=== PATIENT | female | born 1935 | race Caucasian/White ===

== ENCOUNTER 2022-08-24 07:46 | Outpatient (OUT) | payer MEDICARE, OTHER, SELFPAY ==
[2022-08-24 09:05] LABS: Alanine Aminotransferase 21 U/L (14-59); Albumin Globulin Ratio 0.8; Albumin Level 3.3 g/dL (3.4-5.0); Alkaline Phosphatase 64 U/L (46-116); Anion Gap 12.6; Aspartate Amino Transferase 21 U/L (15-37); BUN Creatinine Ratio 23.4; Bilirubin Total 0.6 mg/dL (0.2-1.0); Calcium 9.3 mg/dL (8.5-10.1); Carbon Dioxide 27.3 mmol/L (21.0-32.0); Chloride 107 mmol/L (98-107); Estimated GFR (African America 59 (>=60); Estimated GFR (Non-African Ame 49 (>=60); Globulin 4.2 g/dL; Glucose 120 mg/dL (74-106); Potassium 3.9 mmol/L (3.5-5.1); Sodium 143 mmol/L (136-145); Total Protein 7.5 g/dL (6.4-8.2)
[2022-08-24 09:53] LABS: Bilirubin Urine NEGATIVE (NEGATIVE); Blood Urine MODERATE (NEGATIVE); Color Urine LT. YELLOW (YELLOW); Glucose Urine UA NEGATIVE (NEGATIVE); Ketones Urine NEGATIVE (NEGATIVE); Leukocyte Esterase Urine LARGE (NEGATIVE); Nitrite Urine NEGATIVE (NEGATIVE); Protein Urine TRACE mg/dL (NEG/TRACE); Specific Gravity Urine 1.025 (1.005-1.025); Urobilinogen Urine 0.2 EU/dL (0.2-1.0); pH Urine 5.5 (5.0-9.0)
[2022-08-24 09:54] LABS: Clarity Urine SLIGHTLY CLOUDY (CLEAR)
[2022-08-24 09:58] LABS: Bacteria Urine SMALL #/HPF (NONE SEEN); Cast Seen? NONE SEEN #/LPF (NONE SEEN); Crystals Seen? None Seen #/HPF (None Seen); Mucus Urine NONE SEEN (NONE SEEN); Squamous Epithelial Cell Urine RARE #/LPF (NONE/RARE); Urine Culture Indicated YES; WBC Urine 75-100 #/HPF (NONE SEEN)
== END 2022-08-24 07:47 | disposition home or self-care (01) ==
LOC: LAB 07:52
PROVIDERS: PCP Internal Medicine; Visit Provider Internal Medicine
DX: I10 Essential (primary) hypertension (principal); R82.90 Unspecified abnormal findings in urine
CPT/HCPCS: 36415; 80053; 81001; 87086; 87150; 87186

== ENCOUNTER 2022-11-25 07:18 | Outpatient (OUT) | payer MEDICARE, OTHER, SELFPAY ==
[2022-11-25 08:04] LABS: Basophils Absolute Auto 0.1 10^3/uL (0.0-0.1); Basophils Percent Auto 0.9 % (0.2-2.0); Eosinophils Absolute Auto 0.3 10^3/uL (0.0-0.7); Eosinophils Percent Auto 3.1 % (0.9-7.0); Hematocrit 39.7 % (36.0-48.0); Hemoglobin 12.8 g/dL (12.0-16.0); Immature Granulocytes Abs Auto 0.03 10^3/uL (0.00-0.03); Immature Granulocytes Pct Auto 0.3 % (0.0-0.5); Lymphocytes Absolute Auto 3.5 10^3/uL (1.2-3.8); Lymphocytes Percent Auto 38.1 % (20.5-60.0); Mean Corpuscular HGB Conc 32.2 g/dL (29.9-35.2); Mean Corpuscular Hemoglobin 31.4 pg (26.7-34.0); Mean Corpuscular Volume 97.3 fL (81.0-99.0); Mean Platelet Volume 11.7 fL (9.5-13.5); Monocytes Absolute Auto 0.7 10^3/uL (0.3-0.8); Monocytes Percent Auto 7.6 % (1.7-12.0); Neutrophils Absolute Auto 4.5 10^3/uL (1.4-6.5); Platelet Count 187 10^3/uL (150-450); Red Blood Count 4.08 10^6/uL (4.20-5.40); Red Cell Distribution Width 14.1 % (11.0-15.0); White Blood Count 9.1 10^3/uL (4.0-11.0)
[2022-11-25 08:22] LABS: Alanine Aminotransferase 43 U/L (14-59); BUN Creatinine Ratio 31.9; Carbon Dioxide 25.1 mmol/L (21.0-32.0); Chloride 106 mmol/L (98-107); Chol HDL Ratio 2.6; Cholesterol 155 mg/dL (<=200); Estimated GFR (African America 44 (>=60); Estimated GFR (Non-African Ame 36 (>=60); Glucose 113 mg/dL (74-106); HDL Cholesterol 60 mg/dL (40-60); LDL Cholesterol Calculated 76.8 mg/dL; Potassium 4.1 mmol/L (3.5-5.1); Sodium 141 mmol/L (136-145); Triglycerides 91 mg/dL (<=150); VLDL CHOLESTEROL 18.2 mg/dL
[2022-11-25 08:38] LABS: Microalbumin Urine Random 1.3 mg/dL (<=30.0)
[2022-11-25 08:42] LABS: Estimated Average Glucose 151 mg/dL; Glycohemoglobin A1C 6.9 % (4.5-6.2)
== END 2022-11-25 07:19 | disposition home or self-care (01) ==
LOC: LAB 07:19
PROVIDERS: PCP Internal Medicine; Visit Provider Internal Medicine
DX: E11.65 Type 2 diabetes mellitus with hyperglycemia (principal); E78.00 Pure hypercholesterolemia, unspecified; I10 Essential (primary) hypertension; Z79.899 Other long term (current) drug therapy
CPT/HCPCS: 36415; 80048; 80061; 82043; 83036; 84460; 85025

== ENCOUNTER 2023-03-12 12:52 | Outpatient (OUT) | payer MEDICARE, OTHER, SELFPAY ==
--- OUTSIDE RECORDS SUMMARY | 2023-03-12 12:59 | XMS_ITS | CCD ---
Author Name Unknown Address [address] [place] [address] Organization [facility] Care Team Providers Care Maintenance Supervisor Electrical Name Role Phone Srinivasan Briggs Unavailable IFTIKHAR, DR AU Admitting Unavailable IFTIKHAR, DR AU Attending Unavailable IFTIKHAR, DR AU Primary Care Unavailable IFTIKHAR, DR AU Consulting Unavailable IFTIKHAR, DR AU Admitting Unavailable IFTIKHAR, DR AU Attending Unavailable IFTIKHAR, DR AU Primary Care Unavailable IFTIKHAR, DR AU Consulting Unavailable TREVON YANG Attending Unavailable Medications Current Medications Medication Drug Class(es) Dates Sig (Normalized) Sig (Original) allopurinol 100 mg oral tablet (16 sources) Xanthine Oxidase Inhibitor take 2 tablets by mouth once daily Allopurinol 100 MG TAKE 2 TABLETS BY MOUTH DAILY for 90 Active ciprofloxacin 250 mg oral tablet (1 source) Quinolone Antimicrobial Start: 11-06-2022 take 1 tablet by mouth every twelve hours Ciprofloxacin HCl 250 MG 1 tablet Orally every 12 hrs for 5 days Oct, Active Diclofenac (16 sources) Nonsteroidal Anti-inflammatory Drug Voltaren 1 % as directed Externally Active Voltaren 1 % as directed Externally Active Voltaren 1 % 1 g niall Externally four times daily Active hydroCHLOROthiazide 12.5 mg / lisinopril 20 mg oral tablet (10 sources) Thiazide Diuretic, Angiotensin Converting Enzyme Inhibitor take 1 tablet by mouth every twenty-four hours Lisinopril-hydroCHLOROthiazide 20-12.5 MG 1 tablet Orally Once a day Active take 1 tablet by marc th once daily Lisinopril-hydroCHLOROthiazide 20-12.5 M G 1 tablet Orally Once a day Active levoFLOXacin 250 mg oral tablet (3 sources) Quinolone Antimicrobial Start: 05-27-2022 take 1 tablet by mouth every twenty-four hours levoFLOXacin 250 MG 1 tablet Orally Once a day for 5 days May, Active levothyroxine sodium 0.05 mg oral tablet (16 sources) l-Thyroxine take 1 tablet by mouth once daily Levothyroxine Sodium 50 MCG TAKE 1 TABLET BY MOUTH EVERY DAY ON AN EMPTY STOMACH Active take 1 tablet by mouth once keiko y Levothyroxine Sodium 50 MCG TAKE 1 TABLET BY MOUTH EVERY DAY ON AN EMPTY STOMACH Active metFORMIN hydrochloride 500 mg oral tablet (8 sources) Biguanide take 1 tablet by mouth twice daily at dinner metFORMIN HCl 500 MG 1 tablet with a meal Orally twice daily (with breakfast and dinner) Active nitrofurantoin, macrocrystals 25 mg / nitrofurantoin, monohydrate 75 mg oral capsule (4 sources) Nitrofuran Antibacterial Start: 05-27-19 take 1 capsule by mouth every twelve hours Nitrofurantoin Monohyd Macro 100 MG 1 capsule with food Orally every 12 hrs for 5 days May, Active simvastatin 20 mg oral tablet (16 sources) HMG-CoA Reductase Inhibitor take 1 tablet by mouth every twenty-four hours Simvastatin 20 MG 1 tablet in the evening Orally Once a day Active Completed/Discontinued Medications Medication Drug Class(es) Dates Sig (Normalized) Sig (Original) Lidocaine (6 sources) Antiarrhythmic, Amide Local Anesthetic Start: 02-24-2023 Lidocaine Feb, 30 mg Start: 10-27-2022 Lidocaine 19 S 2022 30 mg sulfamethoxazole 800 mg / trimethoprim 160 mg oral tablet (6 sources) Dihydrofolate Reductase Inhibitor Antibacterial, Sulfonamide Antimicrobial Start: 08-28-2022 take 1 tablet by mouth every twelve hours Sulfamethoxazole-Trimethoprim 800-160 MG 1 tablet Orally Twice a day for 5 days Aug, Not-Taking/PRN Start: 05-19-2022 take 1 tablet by marc every twelve hours Bactrim DS 800-160 MG 1 tablet Orally Twice a day for 5 days May, Active triamcinolone acetonide 40 mg/ml injectable suspension (20 sources) Corticosteroid Start: 03-24-2022 Kenalog-40 Feb, 40 mg Problems Active Problems Problem Classification Problem Date Documented Date Episodic/Chronic Chronic kidney disease (14 sources) Chronic kidney disease stage 4; Translations: [Chronic kidney disease, stage 4 (severe)] Chronic Diabetes mellitus with complications (20 sources) Hyperglycemia due to type 2 diabetes mellitus; Translations: [Type 2 diabetes mellitus with hyperglycemia] Onset: 12-07-2021 Chronic Disorders of lipid metabolism (20 sources) Pure hypercholesterolemia; Translations: [Pure hypercholesterolemia, unspecified] Onset: 05-31-2022 Chronic Essential hypertension (20 sources) Essential hypertension; Translations: [Essential (primary) hypertension] Onset: 05-31-2022 Chronic Genitourinary symptoms and ill-defined conditions (18 sources) Dysuria; Translations: [Dysuria] Onset: 12-04-2021 Episodic Osteoarthritis (18 sources) Osteoarthritis of left knee joint; Translations: [Unilateral primary osteoarthritis, left knee] Chronic Other aftercare (16 sources) H/O: high risk medication; 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] Episodic Other aftercare (4 sources) Other snf (current) drug therapy; Translations: [OTH PRESSER HAND CURRENT DRUG THERAPY] Onset: 05-31-2022 Episodic Other connective tissue disease (16 sources) H/O: gout; Translations: [Personal history of other diseases of the musculoskeletal system and connective tissue] Episodic Other diseases of veins and lymphatics (16 sources) Peripheral venous insufficiency; Translations: [Venous insufficiency (chronic) (peripheral)] Episodic Other diseases of veins and lymphatics (5 sources) Venous insufficiency (chronic) (peripheral) Episodic Other nervous system disorders (14 sources) Chronic pain; Translations: [Other chronic pain] Chronic Other nervous system disorders (1 source) Other chronic pain Chronic Other non-traumatic joint disorders (9 sources) Pain in unspecified knee; Translations: [Knee pain] Episodic Other non-traumatic joint disorders (2 sources) Pain in left knee Episodic Other non-traumatic joint disorders (1 source) Pain in right knee Episodic Other nutritional; endocrine; and metabolic disorders (16 sources) Obesity; Translations: [Obesity, unspecified] Chronic Other nutritional; endocrine; and metabolic disorders (1 source) Obesity caused by energy imbalance; Translations: [Other obesity due to excess calories] Chronic Other nutritional; endocrine; and metabolic disorders (1 source) Body mass index 30+ - obesity; Translations: [Body mass index (BMI) 32.0-32.9, adult] Chronic Other nutritional; endocrine; and metabolic disorders (1 source) Other obesity due to excess calories Chronic Other nutritional; endocrine; and metabolic disorders (1 source) Body mass index (BMI) 32.0-32.9, adult Chronic Residual codes; unclassified (1 source) Procedure and treatment not carried out because of patient's decision for unspecified reasons Episodic Thyroid disorders (20 sources) Xavier thyroiditis; 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 Chronic Urinary tract infections (9 sources) Urinary tract infectious disease; Translations: [Urinary tract infection, site not specified] Episodic Past or Other Problems Problem Classification Problem Date Documented Da te Episodic/Chronic Chronic kidney disease (3 sources) Chronic kidney disease Results Test Name Value Interpretation Reference Range Facility Basic Metabolic Panelon 05-09 Calcium [Mass/Vol] 9.1557238 mg/dL 8.5-10.1 mg/ dL [facility] Other CO2 [Moles/Vol] 26.96523825 mmol/L 21.0-3 2.0 mmol/L [facility] Other Creatinine [Mass/Vol] 1.18237525 mg/dL Critically high 0.55-1.02 mg/dL [facility] Other Potassium [Moles/Vol] 5.54899694 mmol/L 3.5-5.1 mmol/L [facility] Other Urea nitrogen [Mass/Vol] 53.6652880 mg/dL Critically high 7.0-18.0 mg/dL [facility] Other Basic Metabolic Panel see note [facility] Other Basic Metabolic Panel 141 mmol/L 136-145 mmol/L [facility] Other Basic Metabolic Panel 109 mg/dL Critically high 74-106 mg/dL [facility] Other Basic Metabolic Panel 25 mL/min/1.73m2 Critically low >=60 mL/min/1.73m2 [facility] Other Basic Metabolic Panel 30 mL/min/1.73m2 Critically low >=60 mL/min/1.73m2 [facility] Other CBC AUTO DIFFon 05-26-2022 BASO # 0.1 103/ul Normal 0.0-0.1 [facility] Comment on above: Performed By: #### C BC #### [facility] [address] [address] [address] Judith Solorio Basophils/100 WBC (Bld) 0.5 % Normal 0.2-2.0 [facility] Comment on above: Performed By: #### C BC #### [facility] [address] [address] [address] Judith Solorio EO # 0.2 103/ul Normal 0.0-0.7 [facility] Comment on above: Performed By: #### C BC #### [facility] [address] [address] [address] Judith Solorio Eosinophils/100 WBC (Bld) 2.0 % Normal 0.9-7.0 [facility] Comment on above: Performed By: #### C BC #### [facility] [address] [place] [address] Dr. Judith Solorio Erythrocyte distribution width (RBC) [Ratio] 15.1 % Critically high 11.0-15.0 [facility] Comment on above: Performed By: #### C BC #### [facility] [address] [place] [address] Dr. Judith Solorio Hematocrit (Bld) [Volume fraction] 40.4 % Normal 36.0-48.0 [facility] Comment on above: Performed By: #### C BC #### [facility] [address] [place] [address] Dr. Judith Solorio Hemoglobin (Bld) [Mass/Vol] 13.0 g/dL Normal 12.0-16.0 [facility] Comment on above: Performed By: #### C BC #### [facility] [address] [place] [address] Dr. Judith Solorio IG # 0.04 10e3/ul Critically high 0.00-0.03 [facility] Comment on above: Performed By: #### C BC #### [facility] [address] [place] [address] Dr. Judith Solorio IG % 0.4 % Normal 0.0-0.5 [facility] Comment on above: Performed By: #### C BC #### [facility] [address] [place] [address] Dr. Judith Solorio LYMPH # 3.8 103/ul Normal 1.2-3.8 [facility] Comment on above: Performed By: #### C BC #### [facility] [address] [place] [address] Dr. Judith Solorio Lymphocytes/100 WBC (Bld) 41.4 % Normal 20.5-60.0 [facility] Comment on above: Performed By: #### C BC #### [facility] [address] [place] [address] Dr. Judith Solorio MANUAL DIFF REQ NO Normal [facility] Comment on above: Performed By: #### C BC #### [facility] [address] [place] [address] Dr. Judith Solorio MCH (RBC) [Entitic mass] 30.7 pg Normal 26.7-34.0 [facility] Comment on above: Performed By: #### C BC #### [facility] [address] [place] [address] Dr. Judith Solorio MCHC (RBC) [Mass/Vol] 32.2 g/dL Normal 29.9-35.2 [facility] Comment on above: Performed By: #### C BC #### [facility] [address] [place] [address] Dr. Judith Solorio MCV (RBC) [Entitic vol] 95.5 fL Normal 81.0-99.0 [facility] Comment on above: Performed By: #### C BC #### [facility] [address] [place] [address] Dr. Judith Solorio MONO # 0.7 103/ul Normal 0.3-0.8 [facility] Comment on above: Performed By: #### C BC #### [facility] [address] [place] [address] Dr. Judith Solorio Monocytes/100 WBC (Bld) 7.8 % Normal 1.7-12.0 [facility] Comment on above: Performed By: #### C BC #### [facility] [address] [place] [address] Dr. Judith Solorio NEUT # 4.4 103/ul Normal 1.4-6.5 [facility] Comment on above: Performed By: #### C BC #### [facility] [address] [place] [address] Dr. Judith Solorio Neutrophils/100 WBC (Bld) 47.9 % Normal 43.0-75.0 [facility] Comment on above: Performed By: #### C BC #### [facility] [address] [place] [address] Dr. Judith Solorio Platelet mean volume (Bld) [Entitic vol] 11.1 fL Normal 9.5-13.5 [facility] Comment on above: Performed By: #### C BC #### [facility] [address] [place] [address] Dr. Judith Solorio PLT 205 103/ul Normal 150-450 [facility] Comment on above: Performed By: #### C BC #### [facility] [address] [place] [address] Dr. Judith Solorio RBC 4.23 106/ul Normal 4.20-5.40 [facility] Comment on above: Performed By: #### C BC #### [facility] [address] [place] [address] Dr. Judith Solorio WBC 9.2 103/ul Normal 4.0-11.0 [facility] Comment on above: Performed By: #### C BC #### [facility] [address] [place] [address] Dr. Judith Solorio CULTURE URINEon 05-26-2022 CULTURE URINE Culture Observations: LIGHT GROWTH OF MIXED GENITAL KIMBERLEY. NO POTENTIAL PATHOGENS SEEN. Normal [facility] Comment on above: Performed By: #### U RCX #### [facility] [address] [place] [address] Dr. Judith Solorio GLYCOHEMOGLOBIN A1Con 2022 ADA RECOMMENDATION SEE BELOW Normal [facility] Comment on above: Result Comment: ADA RECOMMENDED LIMIT 4.0 - 6.0 ADA THERAPEUTIC TARGET < 7.0 ACTION SUGGESTED > 7.0 Performed By: #### A 1C #### [facility] [address] [address] [address] Judith Solorio Glucose [Mass/Vol] 148 mg/dL Normal [facility] Comment on above: Performed By: #### A 1C #### [facility] [address] [place] [address] Dr. Judith Solorio HbA1c (Bld) [Mass fraction] 6.8 % Critically high 4.5-6.2 [facility] Comment on above: Performed By: #### A 1C #### [facility] [address] [place] [address] Dr. Judith Solorio LIPID PROFILEon 05-26-2022 CHOL-HDL RATIO NORM SEE BELOW Normal [facility] Comment on above: Result Comment: 3.3 - 4.4 LOW RISK 4.4 - 7.1 AVERAGE RISK 7.1 - 11.0 MODERATE RISK >11.0 HIGH RISK Performed By: #### L IPID, TSH, BMP, ALT #### [facility] [address] [place] [address] Dr. Judith Solorio Cholesterol [Mass/Vol] 173 mg/dL <=200 mg/dL [facility] Comment on above: Performed By: #### L IPID, TSH, BMP, ALT #### [facility] [address] [place] [address] Dr. Judith Solorio Cholesterol in HDL [Mass/Vol] 51 mg/dL 40-60 mg/dL [facility] Comment on above: Performed By: #### L IPID, TSH, BMP, ALT #### [facility] [address] [address] [address] Judith Solorio Cholesterol in LDL [Mass/Vol] 85.6 mg/dL Normal [facility] Comment on above: Performed By: #### L IPID, TSH, BMP, ALT #### [facility] [address] [place] [address] Dr. Judith Solorio Cholesterol.total/Ch olesterol in HDL [Mass ratio] 3.4 {ratio} [facility] Comment on above: Performed By: #### L IPID, TSH, BMP, ALT #### [facility] [address] [address] [address] Judith Solorio HDL NORMAL > or = 60 mg/dl - LOW CARDIOVASCULAR RISK <40 mg/dl - HIGH CARDIOVASCULAR RISK Normal [facility] Comment on above: Performed By: #### L IPID, TSH, BMP, ALT #### [facility] [address] [address] [address] Judith Solorio LDL CALC NORMAL SEE BELOW Normal [facility] Comment on above: Result Comment: <100 mg/dl OPTIMAL 100 - 129 mg/dl NEAR OR ABOVE OPTIMAL 130 - 159 mg/dl BORDERLINE HIGH 160 - 189 mg/dl HIGH >190 mg/dl VERY HIGH Performed By: #### L IPID, TSH, BMP, ALT #### [facility] [address] [address] [address] Judith Solorio Triglyceride [Mass/Vol] 182 mg/dL Critically high <=150 mg/dL [facility] Comment on above: Performed By: #### L IPID, TSH, BMP, ALT #### [facility] [address] [address] [address] Judith Solorio VLDL CALC 36.4 mg/dL Normal [facility] Comment on above: Performed By: #### L IPID, TSH, BMP, ALT #### [facility] [address] [address] [address] Judith Solorio Lipid Panelon 05-26-2022 Lipid Panel > or = 60 mg/dl - LOW CARDIOVASCULAR RISK <40 mg/dl - HIGH CARDIOVASCULAR RISK [facility] Other Lipid Panel SEE BELOW [facility] Other Lipid Panel 85.6 mg/dL [facility] Other Lipid Panel 36.4 mg/dL [facility] Other MICROALBUMIN, RAND URon 04- mALB 7.9 mg/L Normal <=30.0 [facility] Comment on above: Performed By: #### M ALBR #### [facility] [address] [address] [address] Judith Solorio PROF CHEM 8 (BAS METB)on Anion gap [Moles/Vol] 12.8 mmol/L [facility] Comment on above: Performed By: #### L IPID, TSH, BMP, ALT #### [facility] [address] [address] [address] Judith Solorio Calcium [Mass/Vol] 9.7 mg/dL Normal 8.5-10.1 [facility] Comment on above: Performed By: #### L IPID, TSH, BMP, ALT #### [facility] [address] [address] [address] Judith Solorio Chloride [Moles/Vol] 107 mmol/L 98-107 mmol/L [place] Comment on above: Performed By: #### L IPID, TSH, BMP, ALT #### [facility] [address] [address] [address] Judith Solorio CO2 [Moles/Vol] 26.2 mmol/L Normal 21.0-32.0 [facility] Comment on above: Performed By: #### L IPID, TSH, BMP, ALT #### [facility] [address] [address] [address] Judith Solorio Creatinine [Mass/Vol] 1.93 mg/dL Critically high 0.55-1.02 [facility] Comment on above: Performed By: #### L IPID, TSH, BMP, ALT #### [facility] [address] [address] [address] Judith Solorio EGFR-AF GAMBIAN 30 mL/min/1.73m2 Critically low >=60 [facility] Comment on above: Performed By: #### L IPID, TSH, BMP, ALT #### [facility] [address] [address] [address] Judith Solorio EGFR-NON AF GAMBIAN 25 mL/min/1.73m2 Critically low >=60 [facility] Comment on above: Performed By: #### L IPID, TSH, BMP, ALT #### [facility] [address] [address] [address] Judith Solorio Glucose [Mass/Vol] 109 mg/dL Critically high 74-106 [facility] Comment on above: Performed By: #### L IPID, TSH, BMP, ALT #### [facility] [address] [address] [address] Judith Solorio Potassium [Moles/Vol] 5.0 mmol/L Normal 3.5-5.1 [facility] Comment on above: Performed By: #### L IPID, TSH, BMP, ALT #### [facility] [address] [address] [address] Judith Solorio Sodium [Moles/Vol] 141 mmol/L Normal 136-145 [facility] Comment on above: Performed By: #### L IPID, TSH, BMP, ALT #### [facility] [address] [place] [address] Dr. Judith Solorio Urea nitrogen [Mass/Vol] 53.0 mg/dL Critically high 7.0-18.0 [facility] Comment on above: Performed By: #### L IPID, TSH, BMP, ALT #### [facility] [address] [place] [address] Dr. Judith Solorio Urea nitrogen/Creatinine [Mass ratio] 27.5 mg/mg [facility] Comment on above: Performed By: #### L IPID, TSH, BMP, ALT #### [facility] [address] [place] [address] Dr. Judith Solorio SGPTon 05-26-2022 ALT [Catalytic activity/Vol] 26 U/L 14-59 U/L [facility] Comment on above: Performed By: #### L IPID, TSH, BMP, ALT #### [facility] [address] [place] [address] Dr. Judith Solorio TSHon 05-26-2022 TSH 3.457 uIU/mL Normal 0.358-3.740 [facility] Comment on above: Performed By: #### L IPID, TSH, BMP, ALT #### [facility] [address] [place] [address] Dr. Judith Solorio UA RANDOM W/MICROSCOPICon BACTERIA SMALL Abnormal NONE SEEN [facility] Comment on above: Performed By: #### U AMIC #### [facility] [address] [address] [address] Judith Solorio Bilirubin Ql (U) Negative Normal NEGATIVE [facility] Comment on above: Performed By: #### U AMIC #### [facility] [address] [address] [address] Judith Solorio CAST NONE SEEN Normal NONE SEEN [facility] Comment on above: Performed By: #### U AMIC #### [facility] [address] [address] [address] Judith Solorio Clarity (U) CLEAR Normal CLEAR [facility] Comment on above: Performed By: #### U AMIC #### [facility] [address] [address] [address] Judith Solorio Color (U) LT. YELLOW Normal YELLOW [facility] Comment on above: Performed By: #### U AMIC #### [facility] [address] [address] [address] Judith Solorio Crystals LM Nom (Urine sed) NONE SEEN Normal NONE SEEN [facility] Comment on above: Performed By: #### U AMIC #### [facility] [address] [address] [address] Judith Solorio Epithelial cells LM Ql (Urine sed) FEW Abnormal NONE SEEN /RARE [facility] Comment on above: Performed By: #### U AMIC #### [facility] [address] [address] [address] Judith Solorio Glucose Ql (U) Negative Normal NEGATIVE [facility] Comment on above: Performed By: #### U AMIC #### [facility] [address] [address] [address] Judith Solorio Hemoglobin Ql (U) MODERATE Abnormal NEGATIVE [facility] Comment on above: Performed By: #### U AMIC #### [facility] [address] [address] [address] Judith Solorio Ketones Ql (U) Negative Normal NEGATIVE [facility] Comment on above: Performed By: #### U AMIC #### [facility] [address] [address] [address] Judith Solorio LEUKOCYTES LARGE Abnormal NEGATIVE [facility] Comment on above: Performed By: #### U AMIC #### [facility] [address] [address] [address] Judith Solorio MUCOUS NONE SEEN Normal NONE SEEN [facility] Comment on above: Performed By: #### U AMIC #### [facility] [address] [address] [address] Judith Solorio Nitrite Ql (U) Negative Normal NEGATIVE [facility] Comment on above: Performed By: #### U AMIC #### [facility] [address] [address] [address] Judith Solorio pH (U) 5.5 [pH] Normal 5-9 [facility] Comment on above: Performed By: #### U AMIC #### [facility] [address] [place] [address] Dr. Judith Solorio RBC 5-10 Abnormal 0-2 [facility] Comment on above: Performed By: #### U AMIC #### [facility] [address] [place] [address] Dr. Judith Solorio SPEC GRAVITY 1.025 Normal 1.005-<=1.025 [facility] Comment on above: Performed By: #### U AMIC #### [facility] [address] [place] [address] Dr. Judith Solorio UA PROTEIN TRACE Normal NEGATIVE/ TRACE [facility] Comment on above: Performed By: #### U AMIC #### [facility] [address] [place] [address] Dr. Judtih Solorio Urobilinogen Qn (U) 0.2 {Lesa'U}/dL Normal 0.2 - 1. 0 [facility] Comment on above: Performed By: #### U AMIC #### [facility] [address] [place] [address] Dr. Judith Solorio WBC 20-50 Abnormal NONE SEEN [facility] Comment on above: Performed By: #### U AMIC #### [facility] [address] [address] [address] Judith Solorio Urinalysis - DIPSTICKon 05-09 Appearance (U) cloudy [facility] Other Bilirubin Ql (U) Negative [employer] Other Color (U) light yellow [facility] Other Glucose Ql (U) Negative [facility] Other Hemoglobin Ql (U) small [employer] Other Ketones Ql (U) Negative [facility] Other Leukocyte esterase Test strip Ql (U) moderate [facility] Other Nitrite Ql (U) Negative [facility] Other pH (U) 5.0 [pH] [facility] Other Protein Ql (U) trace [facility] Other Specific gravity (U) [Rel density] 1.010 [facility] Other Urobilinogen (U) [Mass/Vol] 0.5 mg/dL [facility] Other Urinalysis - DIPSTICK [facility] Other CULTURE URINEon 12-06-2021 CULTURE URINE Isolate 1 Escherichia coli >100,000 CFU/ML OF ORGANISM 1 Escherichia coli ANTIBIOTIC M.I.C RX STATUS Ampicillin <=2 S F Ampicillin/Sulbacta m <=2 S F Piperacillin/Tazoba ctam <=4 S F Cefazolin <=4 S F Ceftazidime <=1 S F Ceftriaxone <=1 S F Ertapenem <=0.5 S F Imipenem <=0.25 S F Amikacin <=2 S F Gentamicin <=1 S F Tobramycin <=1 S F Ciprofloxacin <=0.25 S F Levofloxacin <=0.12 S F Nitrofurantoin <=16 S F Trimethoprim/Sulfam ethoxazole <=20 S F Normal [facility] Comment on above: Performed By: #### U RCX #### [facility] [address] [address] [address] Judith Solorio GLYCOHEMOGLOBIN A1Con 2021 ADA RECOMMENDATION SEE BELOW Normal [facility] Comment on above: Result Comment: ADA RECOMMENDED LIMIT 4.0 - 6.0 ADA THERAPEUTIC TARGET < 7.0 ACTION SUGGESTED > 7.0 Performed By: #### U AMIC #### [facility] [address] [address] [address] Judith Solorio Glucose [Mass/Vol] 140 mg/dL Normal [facility] Comment on above: Performed By: #### U AMIC #### [facility] [address] [place] [address] Dr. Judith Solorio HbA1c (Bld) [Mass fraction] 6.5 % Critically high 4.5-6.2 [facility] Comment on above: Performed By: #### U AMIC #### [facility] [address] [address] [address] Judith Solorio UA RANDOM W/MICROSCOPICon BACTERIA MODERATE Abnormal NONE SEEN [facility] Comment on above: Performed By: #### U AMIC #### [facility] [address] [place] [address] Dr. Judith Solorio Bilirubin Ql (U) Negative Normal NEGATIVE [facility] Comment on above: Performed By: #### U AMIC #### [facility] [address] [place] [address] Dr. Judith Solorio CAST NONE SEEN Normal NONE SEEN [facility] Comment on above: Performed By: #### U AMIC #### [facility] [address] [place] [address] Dr. Juidth Solorio Clarity (U) CLEAR Normal CLEAR [facility] Comment on above: Performed By: #### U AMIC #### [facility] [address] [place] [address] Dr. Judith Solorio Color (U) LT. YELLOW Normal YELLOW [facility] Comment on above: Performed By: #### U AMIC #### [facility] [address] [address] [address] Judith Solorio Crystals LM Nom (Urine sed) NONE SEEN Normal NONE SEEN [facility] Comment on above: Performed By: #### U AMIC #### [facility] [address] [address] [address] Judith Solorio Epithelial cells LM Ql (Urine sed) FEW Abnormal NONE SEEN /RARE [facility] Comment on above: Performed By: #### U AMIC #### [facility] [address] [address] [address] Judith Solorio Glucose Ql (U) Negative Normal NEGATIVE [facility] Comment on above: Performed By: #### U AMIC #### [facility] [address] [place] [address] Dr. Judith Solorio Hemoglobin Ql (U) SMALL Abnormal NEGATIVE [facility] Comment on above: Performed By: #### U AMIC #### [facility] [address] [place] [address] Dr. Judith Solorio Ketones Ql (U) Negative Normal NEGATIVE [facility] Comment on above: Performed By: #### U AMIC #### [facility] [address] [address] [address] Judith Solorio LEUKOCYTES LARGE Abnormal NEGATIVE [facility] Comment on above: Performed By: #### U AMIC #### [facility] [address] [place] [address] Dr. Judith Solorio MUCOUS NONE SEEN Normal NONE SEEN [facility] Comment on above: Performed By: #### U AMIC #### [facility] [address] [place] [address] Dr. Judith Solorio Nitrite Ql (U) Positive Abnormal NEGATIVE [facility] Comment on above: Performed By: #### U AMIC #### [facility] [address] [place] [address] Dr. Judith Solorio pH (U) 6.0 [pH] Normal 5-9 [facility] Comment on above: Performed By: #### U AMIC #### [facility] [address] [place] [address] Dr. Judith Solorio RBC 5-10 Abnormal 0-2 [facility] Comment on above: Performed By: #### U AMIC #### [facility] [address] [address] [address] Judith Solorio SPEC GRAVITY 1.025 Normal 1.005-<=1.[address] [facility] Comment on above: Performed By: #### U AMIC #### [facility] [address] [address] [address] Judith Solorio UA PROTEIN TRACE Normal NEGATIVE/ TRACE [facility] Comment on above: Performed By: #### U AMIC #### [facility] [address] [address] [address] Judith Solorio Urobilinogen Qn (U) 0.2 {Lesa'U}/dL Normal 0.2 - 1. 0 [facility] Comment on above: Performed By: #### U AMIC #### [facility] [address] [address] [address] Judith Solorio WBC (U) [#/Vol] /uL Abnormal NONE SEEN [facility] Comment on above: Performed By: #### U AMIC #### [facility] [address] [address] [address] Judith Solorio XR bonelength lower extremit yon 06-21-2020 XR bonelength lower extremity [facility] [place] [address] XRay Report Signed Patient: Rosalind Glasgow I MR#: [id number] 299 : 1935 Acct:[id number] Age/Sex: 85 / F ADM Date: 06/21/20 Loc: ICXD Room: Type: [facility] Attending Dr: Ron Velasco PA-C Ordering Provider: Ron Velasco PA-C Date of Service: 06/21/20 XR/XR bonelength lower extremity: M17.11 Copies to: Ron Velasco PA-C Plain film bone length lower extremity Assessment for RIGHT knee replacement. Bone length of the RIGHT femur and tibia is 82 cm. Bone length of the LEFT femur and tibia is 82 cm. RIGHT femur length and LEFT femur length is both measure 45 cm. The RIGHT and LEFT tibial length of both 36 cm. No bony lesion or acute bony findings identified. Pelvic structures are symmetrical. Lower lumbar degeneration. Moderate degeneration greater on the RIGHT with medial compartment [id number] contact. XR/XR bonelength lower extremity IMPRESSION: No leg length discrepancy. Impression dictated by: Saw Diaz M.D.06/21/2020 4:29 PM Dictation Location: [place] [address] Transcribed By: [facility] 06/21/201628 Dictated By: Saw Diaz DO 06/21/201625 Signed By: 06/21/201628 [facility] Vital Signs Date Time Vital Sign Value Performing Clinician Facility 02-24-2023 10:30-0500 Body height 162.56 cm Srinivasan Ball Other [facility] Other 02-24-2023 10:30-0500 Body mass index (BMI) [Ratio] 32.99 kg/m2 Srinivasan Ball Other [facility] Other 02-24-2023 10:30-0500 Body weight 87.18 kg Srinivasan Ball Other [facility] Other 02-24-2023 10:30-0500 Diastolic blood pressure 79 mm[Hg] Srinivasan Ball Other [facility] Other 02-24-2023 10:30-0500 Respiratory rate 12 /min Srinivasan Ball Other [facility] Other 02-24-2023 10:30-0500 Systolic blood pressure 169 mm[Hg] Srinivasan Ball Other [facility] Other 11-18-2022 11:00-0400 Body height 162.56 cm Srinivasan Ball Other [facility] Other 11-18-2022 11:00-0400 Body mass index (BMI) [Ratio] 32.16 kg/m2 Srinivasan Ball Other [facility] Other 11-18-2022 11:00-0400 Body weight 85 kg Srinivasan Ball Other [facility] Other 11-18-2022 11:00-0400 Diastolic blood pressure 80 mm[Hg] Srinivasan Ball Other [facility] Other 11-18-2022 11:00-0400 Respiratory rate 12 /min Srinivasan Ball Other [facility] Other 11-18-2022 11:00-0400 Systolic blood pressure 134 mm[Hg] Srinivasan Ball Other [facility] Other 10-27-2022 13:45-0400 Body height 162.56 cm Srinivasan Ball Other [facility] Other 10-27-2022 13:45-0400 Body mass index (BMI) [Ratio] 32.95 kg/m2 Srinivasan Ball Other [facility] Other 10-27-2022 13:45-0400 Body weight 87.09 kg Srinivasan Ball Other [facility] Other 10-27-2022 13:45-0400 Diastolic blood pressure 77 mm[Hg] Srinivasan Ball Other [facility] Other 10-27-2022 13:45-0400 Respiratory rate 12 /min Srinivasan Ball Other [facility] Other 10-27-2022 13:45-0400 Systolic blood pressure 152 mm[Hg] Srinivasan Ball Other [facility] Other 08-19-2022 11:30-0400 Body height 162.56 cm Srinivasan Ball Other [facility] Other 08-19-2022 11:30-0400 Body mass index (BMI) [Ratio] 32.82 kg/m2 Srinivasan Ball Other [facility] Other 08-19-2022 11:30-0400 Body weight 86.73 kg Srinivasan Ball Other [facility] Other 08-19-2022 11:30-0400 Diastolic blood pressure 99 mm[Hg] Srinivasan Ball Other [facility] Other 08-19-2022 11:30-0400 Respiratory rate 12 /min Srinivasan Ball Other [facility] Other 08-19-2022 11:30-0400 Systolic blood pressure 175 mm[Hg] Srinivasan Ball Other [facility] Other 05-21-2022 12:30-0400 Body height 162.56 cm Srinivasan Ball Other [facility] Other 05-21-2022 12:30-0400 Body mass index (BMI) [Ratio] 32.06 kg/m2 Srinivasan Ball Other [facility] Other 05-21-2022 12:30-0400 Body weight 84.73 kg Srinivasan Ball Other [facility] Other 05-21-2022 12:30-0400 Diastolic blood pressure 74 mm[Hg] Srinivasan Ball Other [facility] Other 05-21-2022 12:30-0400 Respiratory rate 12 /min Srinivasan Ball Other [facility] Other 05-21-2022 12:30-0400 Systolic blood pressure 149 mm[Hg] Srinivasan Ball Other [facility] Other 03-24-2022 11:30-0500 Body height 162.56 cm Srinivasan Ball Other [facility] Other 03-24-2022 11:30-0500 Body mass index (BMI) [Ratio] 33.12 kg/m2 Srinivasan Ball Other [facility] Other 03-24-2022 11:30-0500 Body weight 87.54 kg Srinivasan Ball Other [facility] Other 03-24-2022 11:30-0500 Diastolic blood pressure 76 mm[Hg] Srinivasan Ball Other [facility] Other 03-24-2022 11:30-0500 Respiratory rate 12 /min Srinivasan Ball Other [facility] Other 03-24-2022 11:30-0500 Systolic blood pressure 128 mm[Hg] Srinivasan Ball Other [facility] Other Encounters Encounter Date Encounter Type Care Provider Facility Start: 03-10-2023 End: 03-10-2023 ambulatory TREVON YANG Not Available Start: 02-24-2023 End: 02-24-2023 ambulatory Srinivasan Ball Other [facility] Other Start: 02-24-2023 Office outpatient vi sit 15 minutes Srinivasan Ball [facility] Start: 11-26-2022 End: 11-26-2022 ambulatory Srinivasan Ball Other [facility] Other Start: 11-26-2022 Telephone encounter Srinivasan Ball [facility] Start: 11-18-2022 End: 11-18-2022 ambulatory Srinivasan Ball Other [facility] Other Start: 11-18-2022 Patient encounter procedure Srinivasan Briggs [facility] Start: 11-06-2022 End: 11-06-2022 ambulatory Srinivasan Briggs Other [facility] Other Start: 11-06-2022 Telephone encounter Srinivasan Briggs [facility] Start: 10-27-2022 End: 10-27-2022 ambulatory Srinivasan Briggs Other [facility] Other Start: 10-27-2022 Office outpatient vi sit 15 minutes Srinivasan Briggs [facility] Start: 08-25-2022 End: 08-25-2022 ambulatory Srinivasan Briggs Other [facility] Other Start: 08-25-2022 Telephone encounter Srinivasan Briggs [facility] Start: 08-24-2022 End: 08-24-2022 ambulatory Srinivasan Briggs Other [facility] Other Start: 08-24-2022 Telephone encounter Srinivasan Briggs [facility] Start: 08-19-2022 End: 08-19-2022 ambulatory Srinivasan Briggs Other [facility] Other Start: 08-19-2022 Office outpatient vi sit 25 minutes Srinivasan Iftikhar [facility] Start: 08-17-2022 End: 08-17-2022 ambulatory Srinivasan Iftikhar Other [facility] Other Start: 08-17-2022 Telephone encounter Srinivasan Briggs [facility] Start: 05-27-2022 End: 05-27-2022 ambulatory Srinivasan Iftikhar Other [facility] Other Start: 05-27-2022 Telephone encounter Srinivasan Briggs [facility] Start: 05-26-2022 Telephone encounter Srinivasan Briggs [facility] Start: 05-26-2022 End: 05-27-[address] SRINIVASAN BRIGGS [facility] Other Start: 05-25-2022 End: 05-25-2022 ambulatory Srinivasan Briggs Other [facility] Other Start: 05-25-2022 Telephone encounter Srinivasan Briggs [facility] Start: 05-21-2022 End: 05-21-2022 ambulatory Srinivasan Briggs Other [facility] Other Start: 05-21-2022 Patient encounter procedure Srinivasan Briggs [facility] Start: 05-19-2022 End: 05-19-2022 ambulatory Srinivasan Briggs Other [facility] Other Start: 05-19-2022 Nursing evaluation o f patient and report Srinivasan Briggs [facility] Start: 03-24-2022 End: 03-24-2022 ambulatory Srinivasan Briggs Other [facility] Other Start: 03-24-2022 Office outpatient vi sit 15 minutes Srinivasan Briggs [facility] Start: 12-04-2021 End: 12-05-[address] SRINIVASAN BRIGGS Facility:H1 Immunizations Immunization Date Immunization Notes Care Provider Lakeisha maxwell 11-18-2022 influenza, high dose seasonal, preservative-free Srinivasan Briggs Other [facility] Other 01-16-2022 COVID-19 Pfizer (Pediatric) Srinivasan Briggs Other [facility] Other 01-15-2022 COVID-19 Pfizer (bivalent) Srinivasan Briggs Other [facility] Other 12-03-2021 influenza, high dose seasonal, preservative-free Srinivasan Briggs Other [facility] Other 12-03-2021 influenza virus vaccine, split virus (incl. purified surface antigen) Srinivasan Briggs Other [facility] Other 11-20-2020 influenza virus vaccine, split virus (incl. purified surface antigen) Srinivasan Briggs Other [facility] Other 11-09-2020 COVID-19 Vaccine Pfi zer - Documentation Purposes Only Srinivasan Briggs Other [facility] Other 03-22-2020 COVID-19 Vaccine Pfi zer - Documentation Purposes Only Srinivasan Briggs Other [facility] Other 03-12-2020 COVID-19 Vaccine Pfi zer - Documentation Purposes Only Srinivasan Briggs Other [facility] Other 03-02-2020 COVID-19 Vaccine Pfi zer - Documentation Purposes Only Srinivasan Briggs Other [facility] Other 11-22-2019 influenza virus vaccine, split virus (incl. purified surface antigen) Srinivasan Briggs Other [facility] Other 11-04-2018 pneumococcal conjuga te vaccine, 13 valent Srinivasan Briggs Other [facility] Other 12-07-2017 influenza virus vaccine, split virus (incl. purified surface antigen) Srinivasan Briggs Other [facility] Other 12-17-2016 influenza virus vaccine, split virus (incl. purified surface antigen) Srinivasan Briggs Other [facility] Other 12-25-2015 influenza virus vaccine, split virus (incl. purified surface antigen) Srinivasan Briggs Other [facility] Other 01-10-2015 influenza virus vaccine, split virus (incl. purified surface antigen) Srinivasan Briggs Other [facility] Other 11-21-2014 pneumococcal conjuga te vaccine, 13 valent Srinivasan Briggs Other [facility] Other Payers Date Payer Category Payer Unknown [id number] 1959 Medicare [id number] 2.1 [id number] 1959 Unknown [id number] 1935 Unknown [id number] [id number] 1935 Unknown [id number] 1935 Unknown [id number] Social History Date Type Detail Facility Sex Assigned At [facility] Other Clinical Notes 03-24-2022 to 02-24-2023 Note Date & Type Note Facility 02-24-2023 Evaluation note Encounter Date Diagnosis Assessment Notes Feb, Controlled type 2 diabetes mellitus with hyperglycemia, without long-term current use of insulin (ICD-10 - E11.65) This patient is following a comprehensive diabetic treatment plan. They are checking their feet daily for calluses and nonhealing ulcers. They are being seen for yearly dilated eye examinations. Goals: SBP less than 130, LDL less than 100, FBS less than 140, A1C less than 7%. They are checking their BS daily, will which are reviewed at the office visit. Continue regular routine monitoring of A1C,] Microalbumin, Dilated eye exam and Foot exam Due to check A1C Feb, Primary hypertension (ICD-10 - I10) This patient is instructed to consume a healthy, low-fat, low-salt diet. They are also encouraged to continue exercise to achieve/maintain a normal BMI. Feb, Stage 3a chronic kidney disease (ICD-10 - N18.31) The patient is instructed on adequate control of hypertension and diabetes, if appropriate. They are also educated on the associated risks of NSAIDs and PPI use with kidney disease. They were instructed on adequate fluid balance and to avoid dehydration. Feb, Pain in left knee (ICD-10 - M25.562) She realizes that the pain may worsen before it gets better. She is to rest today w/ intermittent use of ice. Feb, Primary osteoarthritis of left knee (ICD-10 - M17.12) Quad exercises, ice/heat and Tylenol as needed. Avoid squatting or kneeling. 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 Feb, Chronic venous insufficiency (ICD-10 - I87.2) Avoid salt and elevate lower extremities, support stockings, inspect legs and feet daily for blisters and ulcerations. Feb, Other obesity due to excess calories (ICD-10 - E66.09) Feb, Body mass index [BMI] 32.0-32.9, adult (ICD-10 - Z68.32) [facility] Other 10-11-2023 Evaluation note* Encounter Date Diagnosis Assessment Notes Treatment Notes Treatment Clinical Notes Nov, Medicare annual well ness visit, subsequent (ICD-10 - Z00.00) Personalized health advice was given to the beneficiary including a written plan for screenings discussed and provided. Advanced care planning reviewed and/or information given as requested. Additional counseling was provided here today in regards to, [ ]. The above visit was performed by [ ], under direct supervision of [ ]. Document reviewed and amended by provider signed below. Nov, Controlled type 2 diabetes mellitus with hyperglycemia, without long-term current use of insulin (ICD-10 - E11.65) This patient is following a comprehensive diabetic treatment plan. They are checking their feet daily for calluses and nonhealing ulcers. They are being seen for yearly dilated eye examinations. Goals: SBP less than 130, LDL less than 100, FBS less than 140, A1C less than 7%. They are checking their BS daily, will which are reviewed at the office visit. Continue regular routine monitoring of A1C,] Microalbumin, Dilated eye exam and Foot exam Nov, Primary hypertension (ICD-10 - I10) This patient is instructed to consume a healthy, low-fat, low-salt diet. They are also encouraged to continue exercise to achieve/maintain a normal BMI. Nov, Stage 3a chronic kid ruthie disease (ICD-10 - N18.31) The patient is instructed on adequate control of hypertension and diabetes, if appropriate. They are also educated on the associated risks of NSAIDs and PPI use with kidney disease. They were instructed on adequate fluid balance and to avoid dehydration. Nov, 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) Clinically euthyroid, yearly TSH Nov, Pure hypercholestero lemia (ICD-10 - E78.00) Instructed on diet and exercise with continued statin therapy.Discussed the beneficial effects of lowering cholesterol in reducing the risk for cerebrovascular and cardiovascular disease. Nov, Chronic venous insufficiency (ICD-10 - I87.2) Avoid salt and elevate lower extremities, support stockings, inspect legs and feet daily for blisters and ulcerations. Nov, Screening mammograph y declined (ICD-10 - Z53.20) Instructed patient on monthly SBE and yearly mammograms. Nov, High risk medication use (ICD-10 - Z79.899) [facility] Other 09-29-2023 Evaluation note* Encounter Date Diagnosis Assessment Notes Treatment Notes Treatment Clinical Notes Oct, Dysuria (ICD-10 - R30.0) [facility] Other 09-19-2023 Evaluation note* Encounter Date Diagnosis Assessment Notes Treatment Notes Treatment Clinical Notes Oct, Pain in right knee (ICD-10 - M25.561) IA injection using sterile technique. Aware that may worsen before improves. Rest, ROM exercises and ice. Oct, Controlled type 2 diabetes mellitus with hyperglycemia, without long-term current use of insulin (ICD-10 - E11.65) This patient is following a comprehensive diabetic treatment plan. They are checking their feet daily for calluses and nonhealing ulcers. They are being seen for yearly dilated eye examinations. Goals: SBP less than 130, LDL less than 100, FBS less than 140, AC and A1C less than 7%. They are checking their BS daily, will which are reviewed at the office visit. Continue regular routine monitoring of A1C,] Microalbumin, Dilated eye exam and Foot exam Oct, Primary osteoarthritis of right knee (ICD-10 - M17.11) Quad exercises, ice/heat and Tylenol. Avoid squatting and kneeling. IA injections every 3 mo as needed - last injection in Oct, Primary hypertension (ICD-10 - I10) This patient is instructed to consume a healthy, low-fat, low-salt diet. They are also encouraged to continue exercise to achieve/maintain a normal BMI. Patient is instructed on home BP measurements: - rest for 5 minutes w/o talking- positioned w/ feet on floor and arm supported- average best 2/3 readings w/ goal < 135/85 [facility] Other 07-17-2023 Evaluation note* Encounter Date Diagnosis Assessment Notes Treatment Notes Treatment Clinical Notes Aug, Stage 3a chronic kidney disease (ICD-10 - N18.31) [facility] Other 07-12-2023 Evaluation note* Encounter Date Diagnosis Assessment Notes Treatment Notes Treatment Clinical Notes Aug, Controlled type 2 diabetes mellitus with hyperglycemia, without long-term current use of insulin (ICD-10 - E11.65) This patient is following a comprehensive diabetic treatment plan. They are checking their feet daily for calluses and nonhealing ulcers. They are being seen for yearly dilated eye examinations. Goals: SBP less than 130, LDL less than 100, FBS less than 140, AC and A1C less than 7%. They are checking their BS daily, will which are reviewed at the office visit. Continue regular routine monitoring of A1C,] Microalbumin, Dilated eye exam and Foot exam Aug, Primary hypertension (ICD-10 - I10) This patient is instructed to consume a healthy, low-fat, low-salt diet. They are also encouraged to continue exercise to achieve/maintain a normal BMI. Aug, Stage 4 chronic kidn ey disease (ICD-10 - N18.4) The patient is instructed on adequate control of hypertension and diabetes, if appropriate. They are also educated on the associated risks of NSAIDs and PPI use with kidney disease. They were instructed on adequate fluid balance and to avoid dehydration. Aug, Pure hypercholestero lemia (ICD-10 - E78.00) Instructed on diet and exercise with continued statin therapy.Discussed the beneficial effects of lowering cholesterol in reducing the risk for cerebrovascular and cardiovascular disease. Aug, Chronic venous insufficiency (ICD-10 - I87.2) Avoid salt and elevate lower extremities, support stockings, inspect legs and feet daily for blisters and ulcerations. 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) Euthyroid, yearly TSH Aug, 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) [facility] Other 07-10-2023 Evaluation note* Encounter Date Diagnosis Assessment Notes Treatment Notes Treatment Clinical Notes Aug, Stage 4 chronic kidney disease (ICD-10 - N18.4) [facility] Other 04-18-2023 Evaluation note* Encounter Date Diagnosis Assessment Notes Treatment Notes Treatment Clinical Notes May, Dysuria (ICD-10 - R30.0) [facility] Other 04-17-2023 Evaluation note* Encounter Date Diagnosis Assessment Notes Treatment Notes Treatment Clinical Notes May, Dysuria (ICD-10 - R30.0) [facility] Other 04-13-2023 Evaluation note* Encounter Date Diagnosis Assessment Notes Treatment Notes Treatment Clinical Notes May, Controlled type 2 diabetes mellitus with hyperglycemia, without long-term current use of insulin (ICD-10 - E11.65) This patient is following a comprehensive diabetic treatment plan. They are checking their feet daily for calluses and nonhealing ulcers. They are being seen for yearly dilated eye examinations. Goals: SBP less than 130, LDL less than 100, FBS less than 140, AC and A1C less than 7%. They are checking their BS daily, will which are reviewed at the office visit. A1C: May, Essential hypertensi on (ICD-10 - I10) This patient is instructed to consume a healthy, low-fat, low-salt diet. They are also encouraged to continue exercise to achieve/maintain a normal BMI. May, Pure hypercholestero lemia (ICD-10 - E78.00) Diet and exercise with continued statin therapy. May, Chronic venous insufficiency (ICD-10 - I87.2) Avoid salt and elevate lower extremities, support stockings, inspect legs and feet daily for blisters and ulcerations. 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 Advanced care planning reviewed and/or information given as requested. Additional counseling was provided here today in regards to, [ ]. The above visit was performed by [ ], under direct supervision of [ ]. Document reviewed and amended by provider signed below. May, High risk medication use (ICD-10 - Z79.899) [facility] Other 04-11-2023 Evaluation note* Encounter Date Diagnosis Assessment Notes Treatment Notes Treatment Clinical Notes May, Dysuria (ICD-10 - R30.0) [facility] Other 02-14-2023 Evaluation note* Encounter Date Diagnosis Assessment Notes Treatment Notes Treatment Clinical Notes Mar, Pain in left knee (ICD-10 - M25.562) Continue ice, heat and Tylenol. Mar, Primary osteoarthritis of left knee (ICD-10 - M17.12) Quad exercises, ice/heat and Tylenol. 14 Mar, 2022 Essential hypertension (ICD-10 - I10) This patient is instructed to consume a healthy, low-fat, low-salt diet. They are also encouraged to continue exercise to achieve/maintain a normal BMI. Mar, Controlled type 2 diabetes mellitus with hyperglycemia, without long-term current use of insulin (ICD-10 - E11.65) This patient is following a comprehensive diabetic treatment plan. They are checking their feet daily for calluses and nonhealing ulcers. They are being seen for yearly dilated eye examinations. Goals: SBP less than 130, LDL less than 100, FBS less than 140, AC and A1C less than 7%. They are checking their BS daily, will which are reviewed at the office visit. This cortisone injection will increase BS slightly for next couple weeks 14 Mar, 2022 Other chronic pain (ICD-10 - G89.29) [facility] Other Evaluation noteNo InformationNort [employer] [employer] Other History general Narrative - Reported* Type Description Date Medical History Urinary tract infection Medical History Dysuria Medical History High risk medication use Medical History Obesity (BMI 30-39.9) Medical History Acquired autoimmune hypothyroidi sm Medical History Chronic venous insufficiency Medical History Pure hypercholesterolemia Medical History Essential hypertension Medical History Controlled type 2 di abetes mellitus with hyperglycemia, without long-term current use of insulin Medical History History of gout Medical History Knee pain Surgical History TOTAL KNEE ARTHROPLASTY right 0 06/2020 Hospitalization History see surgical history [facility] Other History general Narrative - Reported* Type Description Date Medical History Urinary tract infection Medical History Dysuria Medical History High risk medication use Medical History Obesity (BMI 30-39.9) Medical History Acquired autoimmune hypothyroidi sm Medical History Chronic venous insufficiency Medical History Pure hypercholesterolemia Medical History Essential hypertension Medical History Controlled type 2 di abetes mellitus with hyperglycemia, without long-term current use of insulin Medical History History of gout Medical History Knee pain Medical History Chronic Kidney disease Surgical History TOTAL KNEE ARTHROPLASTY right 0 06/2020 Hospitalization History see surgical history [facility] Other Summary Purpose Family History No Family History Records FoundNo Family History Records FoundNo Family History Records Found Advance Directives No Advanced Directives Records FoundNo Advanced Directives Records FoundNo Advanced Directives Records Found Additional Source Comments INFORMATION SOURCE (unrecogn ized section and content) DATE CREATED AUTHOR 02/25/2021 [facility] DATE CREATED AUTHOR AUTHOR'S ORGANIZ ATION 05/31/2022 [facility] DATE CREATED AUTHOR AUTHOR'S ORGANIZ ATION 03/11/2023 [facility] EPIC REASON FOR VISIT (unrecogniz ed section and content) Cortisone Injection in KneeU A-Burning, Frequency3 month Follow upUTIATBATB3 month Follow upLabs3 month Follow upNo InformationLab ResultsCortisone Shot in KneeU/[facility] results3 month Follow up FOR RECORDS PERTAINING TO PATIENTS WHO ARE OR HAVE BEEN ENROLLED IN A CHEMICAL DEPENDENCY/SUBSTANCEABUSE PROGRAM, SOME INFORMATION MAY BE OMITTED. This clinical summary was aggregated from multiple sources. Caution should be exercised in using it in the provision of clinical care. This summary normalizes information from multiple sources, and as a consequence, information in this document may materially change the coding, format and clinical context of patient data. In addition, data may be omitted in some cases. CLINICAL DECISIONS SHOULD BE BASED ON THE PRIMARY CLINICAL RECORDS. [facility] [employer] [facility] provides no warranty or guarantee of the accuracy or completeness of information in this document.
[2023-03-12 13:44] LABS: Estimated Average Glucose 140 mg/dL; Glycohemoglobin A1C 6.5 % (4.5-6.2)
== END 2023-03-12 12:53 | disposition home or self-care (01) ==
LOC: LAB 12:54
PROVIDERS: PCP Internal Medicine; Visit Provider Internal Medicine
DX: E11.65 Type 2 diabetes mellitus with hyperglycemia (principal)
CPT/HCPCS: 36415; 83036

== ENCOUNTER 2023-06-17 13:26 | Emergency (ER) | payer MEDICARE, OTHER, SELFPAY ==
[2023-06-17 13:30] VITALS: BP 199/100; PULSE 68; TEMP 36.7; O2SAT 96; BMI 32.6
--- NOTE | 2023-06-17 13:35 | CT_ITS ---
The [address] [address] Patient Name: YANET CARLOS MRN: [id number] date: 1935 Sex: F Assigned Patient Location: ER Current Patient Location: ER Accession/Order Number: [id number] Exam Date: 06/17/2023 13:51 Report Date: 06/17/2023 14:27 At the request of: MALVIN CARTAGENA Procedure: CT facial bones wo con EXAM: CT facial bones wo con, CT cervical spine wo con HISTORY: Fall, hit left side of the and forehead COMPARISON: None. TECHNIQUE: Axial noncontrast CT imaging of the facial bones and cervical spine was performed with coronal and sagittal reformats. FINDINGS: CT facial bones Soft tissues: Partially visualized small left frontal/supraorbital scalp contusion. Orbits: Globes intact. Bilateral [place] ocular lens replacements. No intraorbital hematoma. No fractures or masses. Sinuses: Minimal mucosal thickening along the inferior bilateral maxillary sinuses. Midface/nasal cavity: No fractures or masses. Mandible: No fractures or destructive lesions. CT cervical spine Alignment: Straightening of the normal cervical lordosis without trace anterolisthesis of C3 on C4.. Vertebrae: Vertebral body heights are maintained. No fracture. Patient of the left C2-C3 facet joints. Craniocervical junction: No focal abnormality. Degenerative changes: Relatively mild degenerative changes of cervical spine most prominently involving the facet joints with advanced left facet arthropathy at C2-C3 and advanced right facet arthropathy at C3-C4 with associated moderate foraminal stenosis at these levels. No substantial canal stenosis visible by CT. Additional Comments: Mild atherosclerotic change. Visualized portion of the lung apices are clear. CT/CT facial bones wo con IMPRESSION: 1. No facial bone fracture. 2. Partially visualized small left frontal/juxtacortical scalp contusion. 3. No acute fracture or malalignment of the cervical spine. Electronically authenticated by: NAHED SIMS Date: 06/17/2023 14:27
--- NOTE | 2023-06-17 13:35 | CT_ITS ---
The [address] [address] Patient Name: YANET CARLOS MRN: [id number] date: 1935 Sex: F Assigned Patient Location: ED.MAIN Current Patient Location: Accession/Order Number: [id number] Exam Date: 06/17/2023 13:51 Report Date: 06/17/2023 14:27 At the request of: MALVIN CARTAGENA Procedure: CT cervical spine wo con EXAM: CT facial bones wo con, CT cervical spine wo con HISTORY: Fall, hit left side of the and forehead COMPARISON: None. TECHNIQUE: Axial noncontrast CT imaging of the facial bones and cervical spine was performed with coronal and sagittal reformats. FINDINGS: CT facial bones Soft tissues: Partially visualized small left frontal/supraorbital scalp contusion. Orbits: Globes intact. Bilateral [place] ocular lens replacements. No intraorbital hematoma. No fractures or masses. Sinuses: Minimal mucosal thickening along the inferior bilateral maxillary sinuses. Midface/nasal cavity: No fractures or masses. Mandible: No fractures or destructive lesions. CT cervical spine Alignment: Straightening of the normal cervical lordosis without trace anterolisthesis of C3 on C4.. Vertebrae: Vertebral body heights are maintained. No fracture. Patient of the left C2-C3 facet joints. Craniocervical junction: No focal abnormality. Degenerative changes: Relatively mild degenerative changes of cervical spine most prominently involving the facet joints with advanced left facet arthropathy at C2-C3 and advanced right facet arthropathy at C3-C4 with associated moderate foraminal stenosis at these levels. No substantial canal stenosis visible by CT. Additional Comments: Mild atherosclerotic change. Visualized portion of the lung apices are clear. CT/CT cervical spine wo con IMPRESSION: 1. No facial bone fracture. 2. Partially visualized small left frontal/juxtacortical scalp contusion. 3. No acute fracture or malalignment of the cervical spine. Electronically authenticated by: NAHED SIMS Date: 06/17/2023 14:27
--- NOTE | 2023-06-17 13:35 | CT_ITS ---
The [address] [address] Patient Name: YANET CARLOS MRN: [id number] date: 1935 Sex: F Assigned Patient Location: ER Current Patient Location: [facility] Accession/Order Number: [id number] Exam Date: 06/17/2023 13:51 Report Date: 06/17/2023 14:24 At the request of: MALVIN CARTAGENA Procedure: CT head/brain wo con EXAM: CT head/brain wo con HISTORY: Fall. No loss of consciousness. COMPARISON: None. TECHNIQUE: Contiguous transaxial images were obtained from skull base to vertex without administration of intravenous contrast. Dose reduction: mA and/or kV are were adjusted by automated exposure control software based upon patients height and weight. FINDINGS: There is a large left frontal scalp hematoma. There is no acute underlying calvarial fracture. There is hyperostosis frontalis interna, an anatomic normal variant. The visualized globes and orbits are grossly normal. Visualized paranasal sinuses are clear. Bilateral mastoid air cells are clear. The ventricles and sulci are normal and symmetric bilaterally. There is mild periventricular and deep subcortical white matter low-attenuation consistent with small vessel ischemic disease. There is no intraparenchymal hemorrhage, extraaxial fluid collection, mass lesion, or acute large territory ischemia by noncontrast CT. There is intracranial atherosclerosis. CT/CT head/brain wo con IMPRESSION: 1. Large left frontal scalp hematoma. 2. No acute intracranial hemorrhage or acute large territory ischemia by noncontrast CT. 3. Mild chronic small vessel ischemic disease. 4. Intracranial atherosclerosis. If the patient has a focal neurologic deficit or there is clinical suspicion for acute cerebrovascular accident, brain MRI would be recommended for further evaluation. Electronically authenticated by: LANCE SUTTON Date: 06/17/2023 14:24
--- NOTE | 2023-06-17 13:37 | ED.GENADUL1 ---
HPI HPI - General Adult General Chief complaint: Fall Stated complaint: FALL, HEAD TRAUMA Time Seen by Provider: 06/17/23 13:35 Source: patient Mode of arrival: ambulance History of Present Illness HPI narrative: Patient is an 88-year-old female who presents to the emergency department by ambulance after a fall outside a hair salon. She states she was assisting a man out of the salon when he tripped and fell and she fell forward. She is noted to have a large hematoma with multiple abrasions and a small left eyelid laceration. She states she has mild soreness in the face and head but had no loss of consciousness. She states she got up off the ground, ambulated to the bathroom with no difficulty and she has no other areas of pain or injury. Unknown last tetanus. She takes no blood thinners. She has had no nausea, vomiting, neck pain, back pain. She has no extremity pain and states she was able to ambulate without pain or difficulty. Related Data Allergies Allergy/AdvReac Type Severity Reaction Status Date / Time No Known Drug Allergies Allergy Verified 06/17/23 14:38 Opioid HPI Opioid Management Most Recent Opioid Data: Last Pain Scale 5 06/17/23 13:43 Last MAR Pain Assessment 06/17/23 13:43 Review of Systems ROS Constitutional Denies: fever or chills Ears, nose, mouth, and throat Denies: throat pain or nasal congestion Cardiovascular Denies: chest pain Respiratory Denies: shortness of breath Gastrointestinal Denies: nausea or vomiting Musculoskeletal Denies: neck pain Integumentary/Breast Denies: rash Hematologic/Lymphatic Denies: easy bruising or easy bleeding Exam Narrative Exam Narrative: Gen.: Awake, alert, in no distress Head: Normocephalic, Large hematoma with multiple abrasions of the face and orbit. ENT: Moist mucous membranes, 1.5 cm superficial laceration to the left upper eyelid inferior to the eyebrow. No active bleeding. Laceration does not extend through the eyelid. Neck; No posterior tenderness of the C-spine, full range of motion that is painless. No bony tenderness of the T-spine or L-spine. Respiratory: No respiratory distress, lungs clear bilaterally Cardio: Regular rate and rhythm Gastrointestinal: Abdomen is soft, nondistended and nontender to palpation, Pelvis is stable and hips are nontender Extremities: Moves extremities equally, no injuries noted Psych: Normal mood and affect Neuro: No focal neuro deficit Skin: Warm, dry, intact Constitutional Vital Signs, click to edit/add: Last Vital Signs Temp 98.1 F 06/17/23 13:30 Pulse 68 06/17/23 13:30 Resp 18 06/17/23 13:30 BP 199/100 H 06/17/23 13:30 Pulse Ox 96 06/17/23 13:30 O2 Del Method Room Air 06/17/23 13:30 Course Vital Signs Vital signs: Vital Signs Temperature 98.1 F 06/17/23 13:30 Pulse Rate 68 06/17/23 13:30 Respiratory Rate 18 06/17/23 13:30 Blood Pressure 199/100 H 06/17/23 13:30 Pulse Oximetry 96 06/17/23 13:30 Oxygen Delivery Method Room Air 06/17/23 13:30 Temperature 98.1 F 06/17/23 13:30 Pulse Rate 68 06/17/23 13:30 Respiratory Rate 18 06/17/23 13:30 Blood Pressure 199/100 H 06/17/23 13:30 Pulse Oximetry 96 06/17/23 13:30 Oxygen Delivery Method Room Air 06/17/23 13:30 Medical Decision Making MDM Narrative Medical decision making narrative: CTs of the head, facial bones and C-spine are unremarkable. Laceration to the left upper eyelid was repaired, please see procedure note for details. Tetanus updated and Tylenol given in for pain control. Patient is awake, alert. Blood pressure rechecked prior to discharge. She is discharged home to follow-up with PCP. Sutures will absorb. Return to the ER if symptoms change or worsen Laceration repair: Done under sterile conditions. The use of Shur-Clens prep the area. Local injection with lidocaine 1% was used, approximately 2 cc. The wound was irrigated copiously with normal saline. The wound was explored there was no evidence of foreign material. The laceration was approximated with 5-0 Fast-absorbing sutures. 3 simple interrupted sutures were placed. Patient tolerated the procedure well. The patient was neurovascularly intact post. the patient had bacitracin applied to the laceration and a dry sterile dressing was placed Medical Records Medical records reviewed: Yes I reviewed the patient's medical records Imaging Data CT scan - head: Attestation: I have reviewed the pertinent imaging results. Radiologist's impression: ITS Impressions Cervical Spine CT 06/17/23 13:35 IMPRESSION: 1. No facial bone fracture. 2. Partially visualized small left frontal/juxtacortical scalp contusion. 3. No acute fracture or malalignment of the cervical spine. Electronically authenticated by: NAHED SIMS Date: 06/17/2023 14:[address] 06/17/23 13:35 IMPRESSION: 1. No facial bone fracture. 2. Partially visualized small left frontal/juxtacortical scalp contusion. 3. No acute fracture or malalignment of the cervical spine. Electronically authenticated by: NAHED SIMS Date: 06/17/2023 14:[address] 06/17/23 13:35 IMPRESSION: 1. Large left frontal scalp hematoma. 2. No acute intracranial hemorrhage or acute large territory ischemia by noncontrast CT. 3. Mild chronic small vessel ischemic disease. 4. Intracranial atherosclerosis. If the patient has a focal neurologic deficit or there is clinical suspicion for acute cerebrovascular accident, brain MRI would be recommended for further evaluation. Electronically authenticated by: LANCE SUTTON Date: 06/17/2023 14:24 Discharge Plan Discharge Stand Alone Forms: Portal Instructions Chief Complaint: Fall Clinical Impression: Closed head injury, Contusion of face, Scalp hematoma, Eyelid laceration, left, Fall Patient Disposition: Home, Self-Care Time of Disposition Decision: 14:59 Condition: Good Print Language: Cymra[place] Instructions: Head Injury (ED), Contusion in Adults (ED), Care For Your Absorbable Stitches (ED), Hematoma (ED) Referrals: Srinivasan Buitrago DO [Primary Care Provider] - 1 week
[2023-06-17] MEDS: ACETAMINOPHEN 325 MG TABLET 650 MG PO (13:43)
[2023-06-17] MEDS: BACITRACIN OINTMENT 28.4 GM TUBE 1 APPLIC TOPICAL (13:44)
[2023-06-17] MEDS: ADACEL DIPH,PERTUSS(ACELL),TET VAC/PF 0.5 ML ADULT SYRINGE IM (13:45)
[2023-06-17] MEDS: LIDOCAINE/EPINEPHRINE/TETRACAINE 3 ML GEL.PF.APP TOPICAL (14:10)
[2023-06-17 14:58] VITALS: BP 140/82; PULSE 64; O2SAT 100
[2023-06-17] MEDS: LIDOCAINE HCL 1% 100 MG/10 ML MDV INJ (15:13)
== END 2023-06-17 15:16 | disposition home or self-care (01) ==
PROVIDERS: Emergency Provider Emergency Medicine; PCP Internal Medicine
DX: S00.03XA Contusion of scalp, initial encounter (principal); S00.83XA Contusion of other part of head, initial encounter; S01.112A Laceration without foreign body of left eyelid and periocular area, initial encounter; W18.39XA Other fall on same level, initial encounter; Z23 Encounter for immunization
CPT/HCPCS: 12011; 70450; 70486; 72125; 90471; 90715; 99284

== ENCOUNTER 2023-12-16 15:37 | Outpatient (OUT) | payer MEDICARE, OTHER, SELFPAY ==
[2023-12-16 16:15] LABS: Microalbumin Urine Random <1.3 mg/dL (<=30.0)
[2023-12-16 16:17] LABS: Estimated Average Glucose 137 mg/dL; Glycohemoglobin A1C 6.4 % (4.5-6.2)
[2023-12-16 16:19] LABS: Basophils Absolute Auto 0.1 10^3/uL (0.0-0.1); Basophils Percent Auto 0.8 % (0.2-2.0); Eosinophils Absolute Auto 0.2 10^3/uL (0.0-0.7); Eosinophils Percent Auto 2.1 % (0.9-7.0); Hematocrit 39.3 % (36.0-48.0); Hemoglobin 12.7 g/dL (12.0-16.0); Immature Granulocytes Abs Auto 0.03 10^3/uL (0.00-0.03); Immature Granulocytes Pct Auto 0.3 % (0.0-0.5); Lymphocytes Absolute Auto 3.4 10^3/uL (1.2-3.8); Lymphocytes Percent Auto 34.1 % (20.5-60.0); Mean Corpuscular HGB Conc 32.3 g/dL (29.9-35.2); Mean Corpuscular Hemoglobin 32.3 pg (26.7-34.0); Mean Platelet Volume 11.4 fL (9.5-13.5); Monocytes Absolute Auto 0.7 10^3/uL (0.3-0.8); Monocytes Percent Auto 7.4 % (1.7-12.0); Neutrophils Absolute Auto 5.5 10^3/uL (1.4-6.5); Neutrophils Percent Auto 55.3 % (43.0-75.0); Platelet Count 208 10^3/uL (150-450); Red Blood Count 3.93 10^6/uL (4.20-5.40); Red Cell Distribution Width 14.1 % (11.0-15.0)
[2023-12-16 16:49] LABS: Alanine Aminotransferase 14 U/L (14-59); Albumin Globulin Ratio 0.9; Albumin Level 3.4 g/dL (3.4-5.0); Alkaline Phosphatase 56 U/L (46-116); Anion Gap 14.8; Aspartate Amino Transferase 19 U/L (15-37); BUN Creatinine Ratio 23.3; Bilirubin Total 0.5 mg/dL (0.2-1.0); Calcium 9.7 mg/dL (8.5-10.1); Carbon Dioxide 26.4 mmol/L (21.0-32.0); Chloride 106 mmol/L (98-107); Estimated GFR (African America 46 (>=60 mL/min/1.73m^2); Estimated GFR (Non-African Ame 38 (>=60 mL/min/1.73m^2); Globulin 3.8 g/dL; Glucose 135 mg/dL (74-106); Potassium 4.2 mmol/L (3.5-5.1); Sodium 143 mmol/L (136-145); Thyroid Stimulating Hormone 2.661 uIU/mL (0.358-3.740); Total Protein 7.2 g/dL (6.4-8.2)
== END 2023-12-16 15:38 | disposition home or self-care (01) ==
LOC: LAB 15:37
PROVIDERS: PCP Internal Medicine; Visit Provider Internal Medicine
DX: E03.9 Hypothyroidism, unspecified (principal); I10 Essential (primary) hypertension; E11.65 Type 2 diabetes mellitus with hyperglycemia
CPT/HCPCS: 36415; 80053; 82043; 83036; 84443; 85025

== ENCOUNTER 2024-10-04 12:07 | Outpatient (OUT) | payer MEDICARE, OTHER, SELFPAY ==
--- NOTE | 2024-10-04 12:35 | XR_ITS ---
The [place] [id number] Patient Name: YANET CARLOS MRN: [id number] date: 1935 Sex: F Assigned Patient Location: [facility] Current Patient Location: [facility] Accession/Order Number: [id number] Exam Date: 10/04/2024 12:23 Report Date: 10/04/2024 13:12 At the request of: ROE BRIGGS DO Procedure: XR lumbar spine 6V w bending LUMBAR SPINE with flexion and extension views - 6 views: CLINICAL HISTORY: low back pain the past month, greater on the right. History of fall 4 months ago. M54.50 COMPARISON: None AP, lateral (neutral, flexion and extension) and both oblique views of the lumbosacral junction were obtained. There is osteopenia. Subtle levoscoliotic curvature is seen. There is no acute compression fracture. There is minimal retrolisthesis of L2 on L3, L3 on L4 and L4 on L5. No significant instability is visualized. Mild disc space narrowing is present at L1-2 and L2-3. There is moderate disc space narrowing at L4-5 and lumbosacral junction. Endplate spurring is seen throughout. There is lower lumbar facet hypertrophy. No pars defect is identified. The sacroiliac joints are maintained. There are no paraspinal soft tissue abnormalities. Atherosclerotic plaque is noted at the aorta and iliac arteries. XR/XR lumbar spine 6V w bending IMPRESSION: OSTEOPENIA, SUBTLE SCOLIOSIS AND DEGENERATIVE CHANGES. NO ACUTE BONY INJURY. Impression dictated by: Alissa Conner M.D. 10/04/2024 1:12 PM Dictation Location: [employer] Electronically authenticated by: [id number] Y Date: 10/04/2024 13:12
--- OUTSIDE RECORDS SUMMARY | 2024-10-04 12:41 | XMS_ITS | CCD ---
Author Organization [facility] Inform ion Partnership [facility] Care Team Providers Care Central Supply Assistant Name Role Phone Srinivasan Briggs Unavailable IFTIKHAR, DR AU Admitting Unavailable IFTIKHAR, DR AU Attending Unavailable IFTIKHAR, DR AU Primary Care Unavailable IFTIKHAR, DR AU Consulting Unavailable IFTIKHAR, DR AU Admitting Unavailable IFTIKHAR, DR AU Attending Unavailable IFTIKHAR, DR AU Primary Care Unavailable IFTIKHAR, DR AU Consulting Unavailable Unavailable Primary Care Provider UnavailNELIDA Lutz Attending Unavailable NELIDA MOISE Attending Unavailable NELIDA MOISE Attending Unavailable Srinivasan Briggs DO Primary Care Provider [phone] Srinivasan Briggs DO Attending Provider [phone] Saloni Soto MD Attending Provider [phone] Srinivasan Briggs DO Primary Care Provider Srinivasan Briggs DO Attending Provider [phone] Medications Current Medications Medication Drug Class(es) Dates Sig (Normalized) Sig (Original) allopurinol 100 mg oral tablet (20 sources) Xanthine Oxidase Inhibitor Start: 11-02-2023 End: 09-14-2024 take 2 tablets by mouth once daily Start: 05-26-2023 End: 11-02-2023 take 2 tablets by mouth once daily Allopurinol 100 mg tablet Discontinued 200 MG PO Daily May 26, 2023 12:00am November 02, 2023 7:38am Start: 05-26-2023 End: 11-02-2023 take 200 mg by mouth once daily Allopurinol Discontinu ed 200 MG PO Daily May 26, 2023 12:00am November 02, 2023 7:38am ciprofloxacin 250 mg oral tablet (20 sources) Quinolone Antimicrobial Start: 08-23-2024 take 1 tablet by mouth twice daily Start: 05-05-2024 End: 06-16-2024 take 1 tablet by mouth twice daily Ciprofloxacin Hcl 250 mg tablet Discontinued 250 MG PO Twice daily 10 5 March 28th, 2025 12:00am June 16, 2024 1:36pm Start: 09-27-2023 End: 05-02-2024 take 1 tablet by mouth twice daily Ciprofloxacin Hcl 250 mg tablet Discontinued 250 MG PO Twice daily 10 March 10, 2024 12:41pm May 02, 2024 11:23am Start: 03-15-2023 take 1 tablet by marc th every twelve hours Ciprofloxacin HCl 250 MG 1 tablet Orally every 12 hrs for 5 days Mar, Active Start: 11-06-2022 take 1 tablet by marc th every twelve hours Ciprofloxacin HCl 250 MG 1 tablet Orally every 12 hrs for 5 days Oct, Active diclofenac sodium 0.01 mg/mg topical gel (20 sources) Nonsteroidal Anti-inflammatory Drug Start: 05-26-2023 Voltaren 1 % as directed Externally Active Voltaren 1 % as directed Externally Active Voltaren 1 % 1 g niall Externally four times daily Active hydroCHLOROthiazide 12.5 mg / lisinopril 20 mg oral tablet (20 sources) Thiazide Diuretic, Angiotensin Converting Enzyme Inhibitor Start: 03-23-2024 take 1 tablet by mouth once daily Start: 04-02-2023 End: 03-23-2024 take 1 tablet by mouth once daily Lisinopril-Hydrochlorothiazide 20-12.5 m g tablet Discontinued 1 TAB PO Daily 90 90 April 02, 2023 1:00am March 23, 2024 8:00am take 1 tablet by marc th in the morning lisinopril-hydroCHLOROthiazide 20-12.5 M G tablet Take 1 tablet by mouth in the morning. Active take 1 tablet by marc th every twenty-four hours Lisinopril-hydroCHLOROthiazide 20-12.5 M G 1 tablet Orally Once a day Active take 1 tablet by marc th once daily Lisinopril-hydroCHLOROthiazide 20-12.5 M G 1 tablet Orally Once a day Active levoFLOXacin 250 mg oral tablet (6 sources) Quinolone Antimicrobial Start: 05-27-2022 take 1 tablet by mouth once daily levoFLOXacin (Levaquin) 250 MG tablet TAKE 1 TABLET BY MOUTH EVERY DAY FOR 5 DAYS 05/27/2022 Active levothyroxine sodium 0.05 mg oral tablet (20 sources) l-Thyroxine Start: 08-30-2023 End: 06-18-2024 take 1 tablet by mouth once daily Start: 05-26-2023 End: 08-30-2023 take 1 tablet by mouth once daily Levothyroxine 50 mcg tablet Discontinued 50 MCG PO Daily May 26, 2023 12:00am August 30, 2023 7:22am take 1 tablet by marc th once daily Levothyroxine Sodium 50 MCG TAKE 1 TABLET BY MOUTH EVERY DAY ON AN EMPTY STOMACH Active metFORMIN hydrochloride 500 mg oral tablet (11 sources) Biguanide metFORMIN (Glucophage) 500 MG tablet Active nitrofurantoin, macrocrystals 25 mg / nitrofurantoin, monohydrate 75 mg oral capsule (4 sources) Nitrofuran Antibacterial Start: 05-27-19 take 1 capsule by mouth every twelve hours Nitrofurantoin Monohyd Macro 100 MG 1 capsule with food Orally every 12 hrs for 5 days May, Active simvastatin 20 mg oral tablet (20 sources) HMG-CoA Reductase Inhibitor Start: 04-09-19 End: 03-21-19 25 take 1 tablet by mouth once daily in the evening Start: 04-09-2023 End: 04-09-2023 take 1 tablet by mouth once daily Simvastatin 20 mg tablet Discontinued 20 MG PO Daily April 09, 2023 1:00am April 09, 2023 6:07pm Completed/Discontinued Medications Medication Drug Class(es) Dates Sig (Normalized) Sig (Original) doxycycline hyclate 100 mg oral capsule (11 sources) Tetracycline-clas s Drug Start: 06-23-2023 End: 09-27-2023 take 1 capsule by mouth twice daily Doxycycline Hyclate 100 mg capsule Discontinued 100 MG PO Twice daily 21 08June 23, 2023 12:00am September 27, 2023 10:37am Lidocaine (16 sources) Antiarrhythmic, Amide Local Anesthetic Start: 02-24-2023 Lidocaine Feb, 30 mg Start: 10-27-2022 Lidocaine 19 2022 30 mg sulfamethoxazole 800 mg / trimethoprim 160 mg oral tablet (11 sources) Dihydrofolate Reductase Inhibitor Antibacterial, Sulfonamide Antimicrobial Start: 08-28-2022 take 1 tablet by mouth every twelve hours Sulfamethoxazole-Trimethoprim 800-160 MG 1 tablet Orally Twice a day for 5 days Aug, Not-Taking/PRN Start: 05-19-2022 take 1 tablet by marc th every twelve hours Bactrim DS 800-160 MG 1 tablet Orally Twice a day for 5 days May, Active triamcinolone acetonide 40 mg/ml injectable suspension (20 sources) Corticosteroid Start: 03-24-2022 Kenalog-40 19 Oct, 2022 40 mg Problems Active Problems Problem Classification Problem Date Documented Date Episodic/Chronic Chronic kidney disease (20 sources) Chronic kidney disease stage 4; Translations: [...] 05-31-2022 Chronic Genitourinary symptoms and ill-defined conditions (20 sources) Dysuria; Translations: [Dysuria] Onset: 12-04-2021 Episodic Intracranial injury (12 sources) Concussion injury of body structure; Translations: [Concussion] 06-23-2023 Episodic Osteoarthritis (20 sources) Osteoarthritis of left knee joint; Translations: [Unilateral primary osteoarthritis, left knee] Chronic Other aftercare (20 sources) H/O: high risk medication; Translations: [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] Episodic Other aftercare (4 sources) 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; Translations: [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 THERAPY] Onset: 05-31-2022 Episodic Other connective tissue disease (20 sources) H/O: gout; Translations: [Personal history of other diseases of the musculoskeletal system and connective tissue] Episodic Other diseases of veins and lymphatics (20 sources) Peripheral venous insufficiency; Translations: [Venous insufficiency (chronic) (peripheral)] 05-26-2023 Episodic Other diseases of veins and lymphatics (8 sources) Venous insufficiency (chronic) (peripheral); Translations: [Venous (peripheral) insufficiency, unspecified] Episodic Other ear and sense organ disorders (9 sources) Impacted cerumen; Translations: [Impacted cerumen, unspecified ear] 10-29-2023 Episodic Other ear and sense organ disorders (3 sources) Impacted cerumen, unspecified ear; Translations: [Impacted cerumen] 10-29-2023 Episodic Other nervous system disorders (19 sources) Chronic pain; Translations: [Other chronic pain] Chronic Other nervous system disorders (1 source) Other chronic pain Chronic Other non-epithelial cancer of skin (2 sources) History of squamous cell carcinoma of skin; Translations: [Personal history of other malignant neoplasm of skin] 12-08-2023 Episodic Other non-traumatic joint disorders (17 sources) Pain in unspecified knee; Translations: [Knee pain] 09-12-2023 Episodic Other non-traumatic joint disorders (17 sources) Pain in left knee; Translations: [Pain in joint, lower leg] Episodic Other non-traumatic joint disorders (1 source) Pain in right knee Episodic Other nutritional; endocrine; and metabolic disorders (20 sources) Obesity; Translations: [Obesity, unspecified] Chronic Other nutritional; endocrine; and metabolic disorders (6 sources) Obesity caused by energy imbalance; Translations: [Other obesity due to excess calories] Chronic Other nutritional; endocrine; and metabolic disorders (6 sources) Body mass index 30+ - obesity; Translations: [Body mass index (BMI) 32.0-32.9, adult] Chronic Other nutritional; endocrine; and metabolic disorders (1 source) Other obesity due to excess calories Chronic Other nutritional; endocrine; and metabolic disorders (1 source) Body mass index (BMI) 32.0-32.9, adult Chronic Other skin disorders (11 sources) Infection of sebaceous cyst; Translations: [Sebaceous cyst] 06-23-2023 Episodic Other skin disorders (1 source) Sebaceous cyst; Translations: [Sebaceous cyst] 06-23-2023 Episodic Other skin disorders (2 sources) Seborrheic keratosis; Translations: [Other seborrheic keratosis] 12-08-2023 Episodic Other skin disorders (2 sources) Actinic keratosis; Translations: [Actinic keratosis] 12-08-2023 Episodic Residual codes; unclassified (1 source) Procedure and treatment not carried out because of patient's decision for unspecified reasons Episodic Superficial injury; contusion (12 sources) Hematoma of scalp; Translations: [Contusion of scalp, initial encounter] 06-23-2023 Episodic Thyroid disorders (20 sources) Xavier thyroiditis; 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 Chronic Urinary tract infections (9 sources) Urinary tract infectious disease; Translations: [Urinary tract infection, site not specified] Episodic Past or Other Problems Problem Classification Problem Date Documented Da te Episodic/Chronic Chronic kidney disease (3 sources) Chronic kidney disease Results Test Name Value Interpretation Reference Range Facility Laboratory - Chemistry and C hemistry - challengeOrdered By: Saloni Soto on 08-23-2024 Bilirubin Ql (U) Negative [facility] Glucose (U) [Mass/Vol] Negative [facility] Ketones Ql (U) Negative [facility] pH (U) 5.0 [pH] [facility] Specific gravity (U) [Rel density] 1.010 [facility] Urobilinogen (U) [Mass/Vol] 0.2 mg/dL [facility] Laboratory - Specimen inform ationOrdered By: Saloni Soto on 08-23-2024 Appearance (U) cloudy [facility] Color (U) darkyellow [facility] Laboratory - UrinalysisOrder ed By: Saloni Soto on 08-23-2024 Leukocyte esterase Test strip Ql (U) ++ [facility] Nitrite Ql (U) Positive [facility] Protein Ql (U) ++ [facility] No Panel InformationOrdered By: Saloni Soto on 08-23-2024 Urine Occult Blood +++ [facility] Laboratory - Chemistry and C hemistry - challengeon 03-10-2024 Bilirubin Ql (U) Negative [facility] Glucose (U) [Mass/Vol] Negative [facility] Ketones Ql (U) Negative [facility] pH (U) 5.0 [pH] [facility] Specific gravity (U) [Rel density] 1.010 [facility] Laboratory - Specimen inform ationon 03-10-2024 Appearance (U) cloudy [facility] Color (U) yellow [facility] Laboratory - Urinalysison Leukocyte esterase Test strip Ql (U) +++ [facility] Nitrite Ql (U) Positive [facility] Protein Ql (U) +++ [facility] No Panel Informationon 03-10 Urine Occult Blood +++ [facility] Urine Urobilinogen offchart [facility] Basophils Auto (Bld) [#/Vol] on 12-16-2023 Basophils (Bld) [#/Vol] Automated basophil count 0.0-0.1 [facility] Basophils/100 WBC Auto (Bld) on 12-16-2023 Basophils/100 WBC (Bld) Automated basophil % 0.2-2.0 [facility] Eosinophils/100 WBC Auto (Bl d)on 12-16-2023 Eosinophils/100 WBC (Bld) Automated eosinophil % 0.9-7.0 [facility] Erythrocyte distribution wid th Auto (RBC) [Ratio]on 12-16-2023 Erythrocyte distribution width (RBC) [Ratio] Erythrocyte distribution width [Ratio] by Automated count 11.0-15.0 [facility] Estimated glomerular filtrat ion rate (GFR) non- Americanon 12-16-2023 GFR/1.73 sq M.predicted among non-blacks MDRD (S/P/Bld) [Vol rate/Area] Estimated glomerular filtration rate (GFR) non- Low >=60 mL/min/1.73m 2 [facility] Globulin Calc (S) [Mass/Vol] on 12-16-2023 Globulin (S) [Mass/Vol] Serum globulin measurement by calculation (mass/volume) [facility] Glucose mean value [Mass/vol ume] in Blood Estimated from glycated hemoglobinon 12-16-2023 Average glucose Estimated from glycated hemoglobin (Bld) [Mass/Vol] Glucose mean value [Mass/volume] in Blood Estimated from glycated hemoglobin [facility] Hematocrit Auto (Bld) [Volum e fraction]on 12-16-2023 Hematocrit (Bld) [Volume fraction] Hematocrit [Volume Fraction] of Blood by Automated count 36.0-48.0 [facility] Hemoglobin [Mass/volume] in Bloodon 12-16-2023 Hemoglobin (Bld) [Mass/Vol] Hemoglobin [Mass/volume] in Blood 12.0-16.0 [facility] Laboratory - Chemistry and C hemistry - challengeon 12-16-2023 Albumin [Mass/Vol] 3.4 g/dL 3.4-5.0 [facility] ALP [Catalytic activity/Vol] 56 U/L 46-116 [facility] ALT [Catalytic activity/Vol] 14 U/L 14-59 [facility] AST [Catalytic activity/Vol] 19 U/L 15-37 [facility] Bilirubin [Mass/Vol] 0.5 mg/dL 0.2-1.0 [facility] Calcium [Mass/Vol] 9.7 mg/dL 8.5-10.1 [facility] Chloride [Moles/Vol] 106 mmol/L 98-107 [facility] CO2 [Moles/Vol] 26.4 mmol/L 21.0-32.0 [facility] Creatinine [Mass/Vol] 1.33 mg/dL High 0.55-1.02 [facility] GFR/1.73 sq M.predicted MDRD (S/P/Bld) [Vol rate/Area] 46 mL/min/{1.73_m2} Low >=60 mL/min/1.73m 2 [facility] Glucose [Mass/Vol] 135 mg/dL High 74-106 [facility] Potassium [Moles/Vol] 4.2 mmol/L 3.5-5.1 [facility] Protein [Mass/Vol] 7.2 g/dL 6.4-8.2 [facility] Sodium [Moles/Vol] 143 mmol/L 136-145 [facility] TSH Qn 2.661 m[IU]/L 0.358-3.740 [facility] Urea nitrogen [Mass/Vol] 31.0 mg/dL High 7.0-18.0 [facility] Urea nitrogen/Creatinine [Mass ratio] 23.3 mg/mg [facility] Laboratory - Hematology and Cell countson 12-16-2023 HbA1c (Bld) [Mass fraction] 6.4 % High 4.5-6.2 [facility] Comment on above: ADA RECOMMENDED LIMI T 4.0 - 6.0ADA THERAPEUTIC TARGET < 7.0ACTION SUGGESTED> 7.0 Immature granulocytes/100 WBC (Bld) 0.3 % 0.0-0.5 [facility] Leukocytes [#/volume] correc antonio for nucleated erythrocytes in Blood by Automated counon 12-16-2023 WBC corrected for nucl RBC Auto (Bld) [#/Vol] Leukocytes [#/volume] corrected for nucleated erythrocytes in Blood by Automated coun 4.0-11.0 [facility] Lymphocytes Auto (Bld) [#/Vo l]on 12-16-2023 Lymphocytes (Bld) [#/Vol] Lymphocytes [#/volume] in Blood by Automated count 1.2-3.8 [facility] Lymphocytes/100 WBC Auto (Bl d)on 12-16-2023 Lymphocytes/100 WBC (Bld) Lymphocytes/100 leukocytes in Blood by Automated count 20.5-60.0 [facility] MCH Auto (RBC) [Entitic mass ]on 12-16-2023 MCH (RBC) [Entitic mass] MCH [Entitic mass] by Automated count 26.7-34.0 [facility] MCHC Auto (RBC) [Mass/Vol]on 12-16-2023 MCHC (RBC) [Mass/Vol] MCHC [Mass/volume] by Automated count 29.9-35.2 [facility] MCV Auto (RBC) [Entitic vol] on 12-16-2023 MCV (RBC) [Entitic vol] MCV [Entitic volume] by Automated count High 81.0-99.0 [facility] Microalbumin [Mass/volume] i n Urineon 12-16-2023 Albumin DL <= 20 mg/L (U) [Mass/Vol] Microalbumin [Mass/volume] in Urine <=30.0 [facility] Monocytes Auto (Bld) [#/Vol] on 12-16-2023 Monocytes (Bld) [#/Vol] Automated blood monocyte count 0.3-0.8 [facility] Monocytes/100 WBC Auto (Bld) on 12-16-2023 Monocytes/100 WBC (Bld) Automated monocyte % 1.7-12.0 [facility] Neutrophils Auto (Bld) [#/Vo l]on 12-16-2023 Neutrophils (Bld) [#/Vol] Neutrophils [#/volume] in Blood by Automated count 1.4-6.5 [facility] Neutrophils/100 WBC Auto (Bl d)on 12-16-2023 Neutrophils/100 WBC (Bld) Automated neutrophil % 43.0-75.0 [facility] No Panel Informationon 12-15 Eosinophils # (Auto) 0.2 10 3/uL 0.0-0.7 [facility] Immature Granulocyte # (Auto) 0.03 10 3/uL 0.00-0.03 [facility] Platelet mean volume Auto (B ld) [Entitic vol]on 12-16-2023 Platelet mean volume (Bld) [Entitic vol] Platelet mean volume [Entitic volume] in Blood by Automated count 9.5-13.5 [facility] Platelets Auto (Bld) [#/Vol] on 12-16-2023 Platelets (Bld) [#/Vol] Platelets [#/volume] in Blood by Automated count 150-450 [facility] RBC Auto (Bld) [#/Vol]on RBC (Bld) [#/Vol] Erythrocytes [#/volume] in Blood by Automated count Low 4.20-5.40 [facility] Serum or plasma albumin/glob ulin mass ratioon 12-16-2023 Albumin/Globulin [Mass ratio] Serum or plasma albumin/globulin mass ratio [facility] Serum or plasma anion gap de terminationon 12-16-2023 Anion gap [Moles/Vol] Serum or plasma anion gap determination [facility] No Panel Informationon 12-07 [facility] - Chemistry and C hemistry - challengeon 09-27-2023 Bilirubin Ql (U) Negative [facility] Glucose (U) [Mass/Vol] [facility] Ketones Ql (U) + [facility] pH (U) 5.0 [pH] [facility] Specific gravity (U) [Rel density] 1.025 [facility] Urobilinogen (U) [Mass/Vol] 0.2 mg/dL [facility] Laboratory - Specimen inform ationon 09-27-2023 Appearance (U) cloudy [facility] Color (U) darkyellow [facility] Laboratory - Urinalysison Leukocyte esterase Test strip Ql (U) ++ [facility] Nitrite Ql (U) Negative [facility] Protein Ql (U) ++++ [facility] No Panel Informationon 09-26 Urine Occult Blood +++ [facility] Urinalysis - DIPSTICKon Appearance (U) cloudy [employer] Other Bilirubin Ql (U) Negative [employer] Other Color (U) [place] [employer] Other Glucose Ql (U) Negative [employer] Other Hemoglobin Ql (U) +++ [employer] Other Ketones Ql (U) Negative [employer] Other Leukocyte esterase Test strip Ql (U) ++ [employer] Other Nitrite Ql (U) + [employer] Other pH (U) 5.0 [pH] [employer] Other Protein Ql (U) +++ [employer] Other Specific gravity (U) [Rel density] 1.015 [employer] Other Urobilinogen (U) [Mass/Vol] 2 mg/dL [employer] Other Urinalysis - DIPSTICK [employer] Other Basic Metabolic Panelon 04-1 Calcium [Mass/Vol] 9.4185173 mg/dL 8.5-10 .1 mg/dL [employer] Other CO2 [Moles/Vol] 26.05840808 mmol/L 21.0-3 2.0 mmol/L [employer] Other Creatinine [Mass/Vol] 1.22982171 mg/dL Critically high 0.55-1.02 mg/dL [employer] Other Potassium [Moles/Vol] 5.35290838 mmol/L 3 .5-5.1 mmol/L [employer] Other Urea nitrogen [Mass/Vol] 53.9096540 mg/dL Critically high 7.0-18.0 mg/dL [place] [employer] Other Basic Metabolic Panel see note [employer] Other Basic Metabolic Panel 141 mmol/L 136-14 5 mmol/L [place] [facility] Other Basic Metabolic Panel 109 mg/dL Critically high 74-106 mg /dL [facility] [employer] Other Basic Metabolic Panel 25 mL/min/1.73m2 Critically low >=60 mL/min/1.73m2 [employer] Other Basic Metabolic Panel 30 mL/min/1.73m2 Critically low >=60 mL/min/1.73m2 [facility] [employer] Other CBC AUTO DIFFon 05-26-2022 BASO # 0.1 103/ul Normal 0.0-0.1 [facility] Comment on above: Performed By: #### C BC #### [facility] [address] [place] [address] Dr. Judith Solorio Basophils/100 WBC (Bld) 0.5 % Normal 0.2-2.0 [facility] Comment on above: Performed By: #### C BC #### [facility] [address] [place] [address] Dr. Judith Solorio EO # 0.2 103/ul Normal 0.0-0.7 [facility] Comment on above: Performed By: #### C BC #### [facility] [address] [place] [address] Dr. Judith Solorio Eosinophils/100 WBC (Bld) 2.0 % Normal 0.9-7.0 [facility] Comment on above: Performed By: #### C BC #### [facility] [address] [place] [address] Dr. Judith Solorio Erythrocyte distribution width (RBC) [Ratio] 15.1 % Critically high 11.0-15.0 [facility] Comment on above: Performed By: #### C BC #### [facility] [address] [place] [address] Dr. Judith Solorio Hematocrit (Bld) [Volume fraction] 40.4 % Normal 36.0-48.0 [facility] Comment on above: Performed By: #### C BC #### [facility] [address] [place] [address] Dr. Judith Solorio Hemoglobin (Bld) [Mass/Vol] 13.0 g/dL Normal 12.0-16.0 [facility] Comment on above: Performed By: #### C BC #### [facility] [address] [place] [address] Dr. Judith Solorio IG # 0.04 10e3/ul Critically high 0.00-0.03 [facility] Comment on above: Performed By: #### C BC #### [facility] [address] [place] [address] Dr. Judith Solorio IG % 0.4 % Normal 0.0-0.5 [facility] Comment on above: Performed By: #### C BC #### [facility] [address] [place] [address] Dr. Judith Solorio LYMPH # 3.8 103/ul Normal 1.2-3.8 [facility] Comment on above: Performed By: #### C BC #### [facility] [address] [place] [address] Dr. Judith Solorio Lymphocytes/100 WBC (Bld) 41.4 % Normal 20.5-60.0 [facility] Comment on above: Performed By: #### C BC #### [facility] [address] [place] [address] Dr. Judith Solorio MANUAL DIFF REQ NO Normal [facility] Comment on above: Performed By: #### C BC #### [facility] [address] [place] [address] Dr. Judith Solorio MCH (RBC) [Entitic mass] 30.7 pg Normal 26.7-34.0 [facility] Comment on above: Performed By: #### C BC #### [facility] [address] [place] [address] Dr. Judith Solorio MCHC (RBC) [Mass/Vol] 32.2 g/dL Normal 29.9-35.2 [facility] Comment on above: Performed By: #### C BC #### [facility] [address] [place] [address] Dr. Judith Solorio MCV (RBC) [Entitic vol] 95.5 fL Normal 81.0-99.0 [facility] Comment on above: Performed By: #### C BC #### [facility] Laboratory [address] [place] [address] Dr. Judith Solorio MONO # 0.7 103/ul Normal 0.3-0.8 [facility] Comment on above: Performed By: #### C BC #### [facility] Laboratory [address] [place] [address] Dr. Juidth Solorio Monocytes/100 WBC (Bld) 7.8 % Normal 1.7-12.0 [facility] Comment on above: Performed By: #### C BC #### [facility] Laboratory [address] [place] [address] Dr. Judith Solorio NEUT # 4.4 103/ul Normal 1.4-6.5 [facility] Comment on above: Performed By: #### C BC #### [facility] Laboratory [address] [place] [address] Dr. Judith Solorio Neutrophils/100 WBC (Bld) 47.9 % Normal 43.0-75.0 [facility] Comment on above: Performed By: #### C BC #### [facility] Laboratory [address] [place] [address] Dr. Judith Solorio Platelet mean volume (Bld) [Entitic vol] 11.1 fL Normal 9.5-13.5 [facility] Comment on above: Performed By: #### C BC #### [facility] Laboratory [address] [place] [address] Dr. Judith Solorio PLT 205 103/ul Normal 150-450 [facility] Comment on above: Performed By: #### C BC #### [facility] Laboratory [address] [address] [address] Judith Solorio RBC 4.23 106/ul Normal 4.20-5.40 [facility] Comment on above: Performed By: #### C BC #### [facility] Laboratory [address] [place] [address] Dr. Judith Solorio WBC 9.2 103/ul Normal 4.0-11.0 [facility] Comment on above: Performed By: #### C BC #### [facility] [address] [place] [address] Dr. Judith Solorio CULTURE URINEon 05-26-2022 CULTURE URINE Culture Observations: LIGHT GROWTH OF MIXED GENITAL KIMBERLEY. NO POTENTIAL PATHOGENS SEEN. Normal [facility] Comment on above: Performed By: #### U RCX #### [facility] Laboratory [address] [place] [address] Dr. Judith Solorio GLYCOHEMOGLOBIN A1Con 2022 ADA RECOMMENDATION SEE BELOW Normal [facility] Comment on above: Result Comment: ADA RECOMMENDED LIMIT 4.0 - 6.0 ADA THERAPEUTIC TARGET < 7.0 ACTION SUGGESTED > 7.0 Performed By: #### A 1C #### [facility] Laboratory [address] [place] [address] Dr. Judith Solorio Glucose [Mass/Vol] 148 mg/dL Normal [facility] Comment on above: Performed By: #### A 1C #### [facility] [address] [place] [address] Dr. Judith Solorio HbA1c (Bld) [Mass fraction] 6.8 % Critically high 4.5-6.2 [facility] Comment on above: Performed By: #### A 1C #### [facility] Laboratory [address] [place] [address] Dr. Judith Solorio LIPID PROFILEon 05-26-2022 CHOL-HDL RATIO NORM SEE BELOW Normal [facility] Comment on above: Result Comment: 3.3 - 4.4 LOW RISK 4.4 - 7.1 AVERAGE RISK 7.1 - 11.0 MODERATE RISK >11.0 HIGH RISK Performed By: #### L IPID, TSH, BMP, ALT #### [facility] [address] [address] [address] Judith Solorio Cholesterol [Mass/Vol] 173 mg/dL <=200 mg/dL T [facility] Comment on above: Performed By: #### L IPID, TSH, BMP, ALT #### [facility] [address] [address] [address] Judith Solorio Cholesterol in HDL [Mass/Vol] 51 mg/dL 40-60 mg/dL [facility] Comment on above: Performed By: #### L IPID, TSH, BMP, ALT #### [facility] [address] [address] [address] Judith Solorio Cholesterol in LDL [Mass/Vol] 85.6 mg/dL Normal [facility] Comment on above: Performed By: #### L IPID, TSH, BMP, ALT #### [facility] [address] [address] [address] Judith Solorio Cholesterol.total/Chol esterol in HDL [Mass ratio] 3.4 {ratio} [facility] Comment on above: Performed By: #### L IPID, TSH, BMP, ALT #### [facility] [address] [address] [address] Judith Solorio HDL NORMAL > or = 60 mg/dl - LOW CARDIOVASCULAR RISK <40 mg/dl - HIGH CARDIOVASCULAR RISK Normal [facility] Comment on above: Performed By: #### L IPID, TSH, BMP, ALT #### [facility] [address] [address] [address] Judith Solorio LDL CALC NORMAL SEE BELOW Normal [facility] Comment on above: Result Comment: <100 mg/dl OPTIMAL 100 - 129 mg/dl NEAR OR ABOVE OPTIMAL 130 - 159 mg/dl BORDERLINE HIGH 160 - 189 mg/dl HIGH >190 mg/dl VERY HIGH Performed By: #### L IPID, TSH, BMP, ALT #### [facility] [address] [address] [address] Judith Solorio Triglyceride [Mass/Vol] 182 mg/dL Critically high <=150 mg/dL [facility] Comment on above: Performed By: #### L IPID, TSH, BMP, ALT #### [facility] [address] [address] [address] Judith Solorio VLDL CALC 36.4 mg/dL Normal [facility] Comment on above: Performed By: #### L IPID, TSH, BMP, ALT #### [facility] [address] [address] [address] Judith Solorio Lipid Panelon 05-26-2022 Lipid Panel > or = 60 mg/dl - LOW CARDIOVASCULAR RISK <40 mg/dl - HIGH CARDIOVASCULAR RISK [facility] [employer] Other Lipid Panel SEE BELOW [employer] Other Lipid Panel 85.6 mg/dL [facility] [employer] Other Lipid Panel 36.4 mg/dL [facility] [employer] Other MICROALBUMIN, RAND URon 04-1 mALB 7.9 mg/L Normal <=30.0 [facility] Comment on above: Performed By: #### M ALBR #### [facility] [address] [place] [address] Dr. Judith Solorio PROF CHEM 8 (BAS METB)on Anion gap [Moles/Vol] 12.8 mmol/L [facility] Comment on above: Performed By: #### L IPID, TSH, BMP, ALT #### [facility] [address] [address] [address] Judith Solorio Calcium [Mass/Vol] 9.7 mg/dL Normal 8.5-10.1 [facility] Comment on above: Performed By: #### L IPID, TSH, BMP, ALT #### [facility] [address] [address] [address] Judith Solorio Chloride [Moles/Vol] 107 mmol/L 98-107 mmol/L [facility] Comment on above: Performed By: #### L IPID, TSH, BMP, ALT #### [facility] [address] [address] [address] Judith Solorio CO2 [Moles/Vol] 26.2 mmol/L Normal 21.0-32.0 [facility] Comment on above: Performed By: #### L IPID, TSH, BMP, ALT #### [facility] [address] [address] [address] Judith Solorio Creatinine [Mass/Vol] 1.93 mg/dL Critically high 0.55-1.02 [facility] Comment on above: Performed By: #### L IPID, TSH, BMP, ALT #### [facility] [address] [address] [address] Judith Solorio EGFR-AF BERMUDIAN 30 mL/min/1.73m2 Critically low >=60 [facility] Comment on above: Performed By: #### L IPID, TSH, BMP, ALT #### [facility] [address] [address] [address] Judith Solorio EGFR-NON AF BERMUDIAN 25 mL/min/1.73m2 Critically low >=60 [facility] Comment on above: Performed By: #### L IPID, TSH, BMP, ALT #### [facility] [address] [address] [address] Judith Solorio Glucose [Mass/Vol] 109 mg/dL Critically high 74-106 [facility] Comment on above: Performed By: #### L IPID, TSH, BMP, ALT #### [facility] [address] [address] [address] Judith Solorio Potassium [Moles/Vol] 5.0 mmol/L Normal 3.5-5.1 [facility] Comment on above: Performed By: #### L IPID, TSH, BMP, ALT #### [facility] [address] [address] [address] Judith Solorio Sodium [Moles/Vol] 141 mmol/L Normal 136-145 [facility] Comment on above: Performed By: #### L IPID, TSH, BMP, ALT #### [facility] [address] [address] [address] Judith Solorio Urea nitrogen [Mass/Vol] 53.0 mg/dL Critically high 7.0-18.0 [facility] Comment on above: Performed By: #### L IPID, TSH, BMP, ALT #### [facility] [address] [place] [address] Dr. Judith Solorio Urea nitrogen/Creatinine [Mass ratio] 27.5 mg/mg [facility] Comment on above: Performed By: #### L IPID, TSH, BMP, ALT #### [facility] [address] [place] [address] Dr. Judith Solorio [facility] 05-26-2022 ALT [Catalytic activity/Vol] 26 U/L 14-59 U/L [facility] Comment on above: Performed By: #### L IPID, TSH, BMP, ALT #### [facility] [address] [place] [address] Dr. Judith Solorio TSHon 05-26-2022 TSH 3.457 uIU/mL Normal 0.358-3.740 [facility] Comment on above: Performed By: #### L IPID, TSH, BMP, ALT #### [facility] [address] [place] [address] Dr. Judith Solorio UA RANDOM W/MICROSCOPICon BACTERIA SMALL Abnormal NONE SEEN [facility] Comment on above: Performed By: #### U AMIC #### [facility] [address] [place] [address] Dr. Judith Solorio Bilirubin Ql (U) Negative Normal NEGATIVE [facility] Comment on above: Performed By: #### U AMIC #### [facility] [address] [place] [address] Dr. Judith Solorio CAST NONE SEEN Normal NONE SEEN [facility] Comment on above: Performed By: #### U AMIC #### [facility] [address] [place] [address] Dr. Judith Solorio Clarity (U) CLEAR Normal CLEAR [facility] Comment on above: Performed By: #### U AMIC #### [facility] [address] [place] [address] Dr. Judith Solorio Color (U) LT. YELLOW Normal YELLOW [facility] Comment on above: Performed By: #### U AMIC #### [facility] [address] [address] [address] Judith Solorio Crystals LM Nom (Urine sed) NONE SEEN Normal NONE SEEN [facility] Comment on above: Performed By: #### U AMIC #### [facility] [address] [address] [address] Judith Solorio Epithelial cells LM Ql (Urine sed) FEW Abnormal NONE SEEN /RARE [facility] Comment on above: Performed By: #### U AMIC #### [facility] [address] [address] [address] Judith Solorio Glucose Ql (U) Negative Normal NEGATIVE [facility] Comment on above: Performed By: #### U AMIC #### [facility] [address] [address] [address] Judith Solorio Hemoglobin Ql (U) MODERATE Abnormal NEGATIVE [facility] Comment on above: Performed By: #### U AMIC #### [facility] [address] [address] [address] Judith Solorio Ketones Ql (U) Negative Normal NEGATIVE [facility] Comment on above: Performed By: #### U AMIC #### [facility] [address] [address] [address] Judith Solorio LEUKOCYTES LARGE Abnormal NEGATIVE [facility] Comment on above: Performed By: #### U AMIC #### [facility] [address] [address] [address] Judith Solorio MUCOUS NONE SEEN Normal NONE SEEN [facility] Comment on above: Performed By: #### U AMIC #### [facility] [address] [address] [address] Judith Solorio Nitrite Ql (U) Negative Normal NEGATIVE [facility] Comment on above: Performed By: #### U AMIC #### [facility] [address] [address] [address] Judith Solorio pH (U) 5.5 [pH] Normal 5-9 [facility] Comment on above: Performed By: #### U AMIC #### [facility] [address] [address] [address] Judith Solorio RBC 5-10 Abnormal 0-2 [facility] Comment on above: Performed By: #### U AMIC #### [facility] [address] [address] [address] Judith Solorio SPEC GRAVITY 1.025 Normal 1.005-<=1.025 [facility] Comment on above: Performed By: #### U AMIC #### [facility] [address] [address] [address] Judith Solorio UA PROTEIN TRACE Normal NEGATIVE/ TRACE [facility] Comment on above: Performed By: #### U AMIC #### [facility] [address] [address] [address] Judith Solorio Urobilinogen Qn (U) 0.2 {Lesa'U}/dL Normal 0.2 - 1. 0 [facility] Comment on above: Performed By: #### U AMIC #### [facility] [address] [place] [address] Dr. Judith Solorio WBC 20-50 Abnormal NONE SEEN [facility] Comment on above: Performed By: #### U AMIC #### [facility] [address] [place] [address] Dr. Judith Solorio Urinalysis - DIPSTICKon 04- Appearance (U) cloudy [employer] Other Bilirubin Ql (U) Negative [employer] Other Color (U) light yellow [employer] Other Glucose Ql (U) Negative [employer] Other Hemoglobin Ql (U) small [employer] Other Ketones Ql (U) Negative [employer] Other Leukocyte esterase Test strip Ql (U) moderate [employer] Other Nitrite Ql (U) Negative [employer] Other pH (U) 5.0 [pH] [place] [employer] Other Protein Ql (U) trace [employer] Other Specific gravity (U) [Rel density] 1.010 [employer] Other Urobilinogen (U) [Mass/Vol] 0.5 mg/dL [place] [employer] Other Urinalysis - DIPSTICK Nor [employer] Other CULTURE URINEon 12-06-2021 CULTURE URINE Isolate 1 Escherichia coli >100,000 CFU/ML OF ORGANISM 1 Escherichia coli ANTIBIOTIC M.I.C RX STATUS Ampicillin <=2 S F Ampicillin/Sulbact am <=2 S F Piperacillin/Tazob actam <=4 S F Cefazolin <=4 S F Ceftazidime <=1 S F Ceftriaxone <=1 S F Ertapenem <=0.5 S F Imipenem <=0.25 S F Amikacin <=2 S F Gentamicin <=1 S F Tobramycin <=1 S F Ciprofloxacin <=0.25 S F Levofloxacin <=0.12 S F Nitrofurantoin <=16 S F Trimethoprim/Sulfa methoxazole <=20 S F Normal [facility] Comment on above: Performed By: #### U RCX #### [facility] [address] [place] [address] Dr. Judith Solorio GLYCOHEMOGLOBIN A1Con 2021 ADA RECOMMENDATION SEE BELOW Normal [facility] Comment on above: Result Comment: ADA RECOMMENDED LIMIT 4.0 - 6.0 ADA THERAPEUTIC TARGET < 7.0 ACTION SUGGESTED > 7.0 Performed By: #### U AMIC #### [facility] [address] [address] [address] Judith Solorio Glucose [Mass/Vol] 140 mg/dL Normal [facility] Comment on above: Performed By: #### U AMIC #### [facility] [address] [place] [address] Dr. Judith Solorio HbA1c (Bld) [Mass fraction] 6.5 % Critically high 4.5-6.2 [facility] Comment on above: Performed By: #### U AMIC #### [facility] [address] [address] [address] Judith Solorio UA RANDOM W/MICROSCOPICon BACTERIA MODERATE Abnormal NONE SEEN [facility] Comment on above: Performed By: #### U AMIC #### [facility] [address] [address] [address] Judith Solorio Bilirubin Ql (U) Negative Normal NEGATIVE [facility] Comment on above: Performed By: #### U AMIC #### [facility] [address] [place] [address] Dr. Judith Solorio CAST NONE SEEN Normal NONE SEEN [facility] Comment on above: Performed By: #### U AMIC #### [facility] [address] [place] [address] Dr. Judith Solorio Clarity (U) CLEAR Normal CLEAR [facility] Comment on above: Performed By: #### U AMIC #### [facility] [address] [place] [address] Dr. Judith Solorio Color (U) LT. YELLOW Normal YELLOW [facility] Comment on above: Performed By: #### U AMIC #### [facility] [address] [address] [address] Judith Solorio Crystals LM Nom (Urine sed) NONE SEEN Normal NONE SEEN [facility] Comment on above: Performed By: #### U AMIC #### [facility] [address] [address] [address] Judith Solorio Epithelial cells LM Ql (Urine sed) FEW Abnormal NONE SEEN /RARE [facility] Comment on above: Performed By: #### U AMIC #### [facility] [address] [address] [address] Judith Solorio Glucose Ql (U) Negative Normal NEGATIVE [facility] Comment on above: Performed By: #### U AMIC #### [facility] [address] [place] [address] Dr. Judith Solorio Hemoglobin Ql (U) SMALL Abnormal NEGATIVE [facility] Comment on above: Performed By: #### U AMIC #### [facility] [address] [address] [address] Judith Solorio Ketones Ql (U) Negative Normal NEGATIVE [facility] Comment on above: Performed By: #### U AMIC #### [facility] [address] [address] [address] Judith Solorio LEUKOCYTES LARGE Abnormal NEGATIVE [facility] Comment on above: Performed By: #### U AMIC #### [facility] [address] [address] [address] Judith Solorio MUCOUS NONE SEEN Normal NONE SEEN [facility] Comment on above: Performed By: #### U AMIC #### [facility] [address] [place] [address] Dr. Judith Solorio Nitrite Ql (U) Positive Abnormal NEGATIVE [facility] Comment on above: Performed By: #### U AMIC #### [facility] [address] [place] [address] Dr. Judith Solorio pH (U) 6.0 [pH] Normal 5-9 [facility] Comment on above: Performed By: #### U AMIC #### [facility] [address] [address] [address] Judith Solorio RBC 5-10 Abnormal 0-2 [facility] Comment on above: Performed By: #### U AMIC #### [facility] [address] [place] [address] Dr. Judith Solorio SPEC GRAVITY 1.025 Normal 1.005-<=1.025 [facility] Comment on above: Performed By: #### U AMIC #### [facility] [address] [place] [address] Dr. Judith Solorio UA PROTEIN TRACE Normal NEGATIVE/ TRACE [facility] Comment on above: Performed By: #### U AMIC #### [facility] [address] [place] [address] Dr. Judith Solorio Urobilinogen Qn (U) 0.2 {Lesa'U}/dL Normal 0.2 - 1. 0 [facility] Comment on above: Performed By: #### U AMIC #### [facility] [address] [address] [address] Judith Solorio WBC (U) [#/Vol] /uL Abnormal NONE SEEN [facility] Comment on above: Performed By: #### U AMIC #### [facility] [id number] Judith Solorio XR bonelength lower extremit yon 06-21-2020 XR bonelength lower extremity [facility] [place] [address] XRay Report Signed Patient: Rosalind Glasgow I MR#: [id number] : 1935 Acct:[id number] Age/Sex: 85 / F ADM Date: 06/21/20 Loc: ICXD Room: Type: [facility] Attending Dr: Ron Velasco PA-C Ordering Provider: [...] greater on the RIGHT with medial compartment [id number] contact. XR/XR bonelength lower extremity IMPRESSION: No leg length discrepancy. Impression dictated by: Saw Diaz M.D.06/21/2020 4:29 PM Dictation Location: [place] [address] Transcribed By: [facility] 06/21/201628 Dictated By: Saw Diaz DO 06/21/201625 Signed By: 06/21/201628 [facility] Vital Signs Date Time Vital Sign Value Performing Clinician Facility 09-08-2024 13:270 Body height 162.56 cm Srinivasan Briggs DO Work Phone: [facility] 09-08-2024 13:27-0400 Body mass index (BMI) [Ratio] 30.6 kg/m2 Srinivasan Ball DO Work Phone: [facility] 09-08-2024 13:27-0400 Body weight 80.9 kg Srinivasan Ball DO Work Phone: [facility] 09-08-2024 13:27-0400 Diastolic blood pressure 77 mm[Hg] Srinivasan Ball DO Work Phone: [facility] 09-08-2024 13:27-0400 Heart rate 75 /min Srinivasan Ball DO Work Phone: [facility] 09-08-2024 13:27-0400 Respiratory rate 12 /min Srinivasan Ball DO Work Phone: [facility] 09-08-2024 13:27-0400 Systolic blood pressure 177 mm[Hg] Srinivasan Ball DO Work Phone: [facility] 06-16-2024 13:41-0400 Body height 162.56 cm Srinivasan Ball DO Work Phone: [facility] 06-16-2024 13:41-0400 Body mass index (BMI) [Ratio] 31.1 kg/m2 Srinivasan Ball DO Work Phone: [facility] 06-16-2024 13:41-0400 Body weight 82.15 kg Srinivasan Ball DO Work Phone: [facility] 06-16-2024 13:41-0400 Diastolic blood pressure 78 mm[Hg] Srinivasan Ball DO Work Phone: [facility] 06-16-2024 13:41-0400 Heart rate 77 /min Srinivasan Ball DO Work Phone: [facility] 06-16-2024 13:41-0400 Respiratory rate 12 /min Srinivasan Ball DO Work Phone: [facility] 06-16-2024 13:41-0400 Systolic blood pressure 189 mm[Hg] Srinivasan Ball DO Work Phone: [facility] 05-02-2024 11:32-0400 Body height 162.56 cm [facility] 05-02-2024 11:32-0400 Body mass index (BMI) [Ratio] 32 kg/m2 [facility] 05-02-2024 11:32-0400 Body weight 84.59 kg [facility] 05-02-2024 11:32-0400 Diastolic blood pressure 89 mm[Hg] [facility] 05-02-2024 11:32-0400 Heart rate 71 /min [facility] 05-02-2024 11:32-0400 Respiratory rate 12 /min [facility] 05-02-2024 11:32-0400 Systolic blood pressure 136 mm[Hg] [facility] 12-22-2023 11:45-0500 Body mass index (BMI) [Ratio] 32.8 kg/m2 [facility] 12-22-2023 11:45-0500 Diastolic blood pressure 89 mm[Hg] [facility] 12-22-2023 11:45-0500 Systolic blood pressure 139 mm[Hg] [facility] 12-22-2023 11:32-0500 Body height 162.56 cm [facility] 12-22-2023 11:32-0500 Body weight 86.69 kg [facility] 12-22-2023 11:32-0500 Heart rate 62 /min [facility] 12-22-2023 11:32-0500 Respiratory rate 12 /min [facility] 12-09-2023 11:28-0400 Body height 162.56 cm [facility] 12-09-2023 11:28-0400 Body mass index (BMI) [Ratio] 32.8 kg/m2 [facility] 12-09-2023 11:28-0400 Body weight 86.86 kg [facility] 12-09-2023 11:28-0400 Diastolic blood pressure 77 mm[Hg] [facility] 12-09-2023 11:28-0400 Heart rate 80 /min [facility] [facility] 12-09-2023 11:28-0400 Respiratory rate 12 /min [facility] 12-09-2023 11:28-0400 Systolic blood pressure 187 mm[Hg] [facility] 10-29-2023 09:01-0400 Body height 162.56 cm [facility] 10-29-2023 09:01-0400 Body mass index (BMI) [Ratio] 32.3 kg/m2 [facility] 10-29-2023 09:01-0400 Body weight 85.33 kg [facility] 10-29-2023 09:01-0400 Diastolic blood pressure 69 mm[Hg] [facility] 10-29-2023 09:01-0400 Heart rate 58 /min [facility] 10-29-2023 09:01-0400 Respiratory rate 12 /min [facility] 10-29-2023 09:01-0400 Systolic blood pressure 164 mm[Hg] [facility] 09-14-2023 11:52-0400 Body height 162.56 cm [facility] 09-14-2023 11:52-0400 Body mass index (BMI) [Ratio] 33.3 kg/m2 [facility] 09-14-2023 11:52-0400 Body weight 88.11 kg [facility] 09-14-2023 11:52-0400 Diastolic blood pressure 89 mm[Hg] [facility] 09-14-2023 11:52-0400 Heart rate 73 /min [facility] 09-14-2023 11:52-0400 Respiratory rate 12 /min [facility] 09-14-2023 11:52-0400 Systolic blood pressure 139 mm[Hg] [facility] 06-23-2023 13:41-0400 Body height 162.56 cm [facility] 06-23-2023 13:41-0400 Body mass index (BMI) [Ratio] 33.5 kg/m2 [facility] 06-23-2023 13:41-0400 Body weight 88.5 kg [facility] 06-23-2023 13:41-0400 Diastolic blood pressure 75 mm[Hg] [facility] 06-23-2023 13:41-0400 Heart rate 62 /min [facility] 06-23-2023 13:41-0400 Respiratory rate 16 /min [facility] 06-23-2023 13:41-0400 Systolic blood pressure 180 mm[Hg] [facility] 05-27-2023 10:58-0400 Body height 162.56 cm [facility] 05-27-2023 10:58-0400 Body mass index (BMI) [Ratio] 33.3 kg/m2 [facility] 05-27-2023 10:58-0400 Body weight 87.99 kg [facility] 05-27-2023 10:58-0400 Diastolic blood pressure 74 mm[Hg] [facility] 05-27-2023 10:58-0400 Heart rate 57 /min [facility] 05-27-2023 10:58-0400 Respiratory rate 16 /min [facility] 05-27-2023 10:58-0400 Systolic blood pressure 212 mm[Hg] [facility] 02-24-2023 10:30-0500 Body height 162.56 cm Srinivasan Ball Other [facility] [employer] Other 02-24-2023 10:30-0500 Body mass index (BMI) [Ratio] 32.99 kg/m2 Srinivasan Ball Other [facility] [employer] Other 02-24-2023 10:30-0500 Body weight 87.18 kg Srinivasan Ball Other [facility] [employer] Other 02-24-2023 10:30-0500 Diastolic blood pressure 79 mm[Hg] Srinivasan Ball Other [employer] Other 02-24-2023 10:30-0500 Respiratory rate 12 /min Srinivasan Ball Other [facility] [employer] Other 02-24-2023 10:30-0500 Systolic blood pressure 169 mm[Hg] Srinivasan Ball Other [employer] Other 11-18-2022 11:00-0400 Body height 162.56 cm Srinivasan Ball Other [employer] Other 11-18-2022 11:00-0400 Body mass index (BMI) [Ratio] 32.16 kg/m2 Srinivasan Ball Other [employer] Other 11-18-2022 11:00-0400 Body weight 85 kg Srinivasan Ball Other [employer] Other 11-18-2022 11:00-0400 Diastolic blood pressure 80 mm[Hg] Srinivasan Ball Other [employer] Other 11-18-2022 11:00-0400 Respiratory rate 12 /min Srinivasan Ball Other [employer] Other 11-18-2022 11:00-0400 Systolic blood pressure 134 mm[Hg] Srinivasan Ball Other [employer] Other 10-27-2022 13:45-0400 Body height 162.56 cm Srinivasan Ball Other [employer] Other 10-27-2022 13:45-0400 Body mass index (BMI) [Ratio] 32.95 kg/m2 Srinivasan Ball Other [employer] Other 10-27-2022 13:45-0400 Body weight 87.09 kg Srinivasan Ball Other [employer] Other 10-27-2022 13:45-0400 Diastolic blood pressure 77 mm[Hg] Srinivasan Ball Other [employer] Other 10-27-2022 13:45-0400 Respiratory rate 12 /min Srinivasan Ball Other [employer] Other 10-27-2022 13:45-0400 Systolic blood pressure 152 mm[Hg] Srinivasan Ball Other [employer] Other 08-19-2022 11:30-0400 Body height 162.56 cm Srinivasan Ball Other [employer] Other 08-19-2022 11:30-0400 Body mass index (BMI) [Ratio] 32.82 kg/m2 Srinivasan Ball Other [employer] Other 08-19-2022 11:30-0400 Body weight 86.73 kg Srinivasan Ball Other [employer] Other 08-19-2022 11:30-0400 Diastolic blood pressure 99 mm[Hg] Srinivasan Ball Other [employer] Other 08-19-2022 11:30-0400 Respiratory rate 12 /min Srinivasan Ball Other [employer] Other 08-19-2022 11:30-0400 Systolic blood pressure 175 mm[Hg] Srinivasan Ball Other [employer] Other 05-21-2022 12:30-0400 Body height 162.56 cm Srinivasan Ball Other [employer] Other 05-21-2022 12:30-0400 Body mass index (BMI) [Ratio] 32.06 kg/m2 Srinivasan Ball Other [employer] Other 05-21-2022 12:30-0400 Body weight 84.73 kg Srinivasan Ball Other [employer] Other 05-21-2022 12:30-0400 Diastolic blood pressure 74 mm[Hg] Srinivasan Ball Other [employer] Other 05-21-2022 12:30-0400 Respiratory rate 12 /min Srinivasan Ball Other [employer] Other 05-21-2022 12:30-0400 Systolic blood pressure 149 mm[Hg] Srinivasan Ball Other [employer] Other 03-24-2022 11:30-0500 Body height 162.56 cm Srinivasan Ball Other [employer] Other 03-24-2022 11:30-0500 Body mass index (BMI) [Ratio] 33.12 kg/m2 Srinivasan Ball Other [employer] Other 03-24-2022 11:30-0500 Body weight 87.54 kg Srinivasan Ball Other [employer] Other 03-24-2022 11:30-0500 Diastolic blood pressure 76 mm[Hg] Srinivasan Ball Other [employer] Other 03-24-2022 11:30-0500 Respiratory rate 12 /min Srinivasan Ball Other [employer] Other 03-24-2022 11:30-0500 Systolic blood pressure 128 mm[Hg] Srinivasan Ball Other [employer] Other Encounters Encounter Date Encounter Type Care Provider Facility Start: 09-19-2024 End: 09-19-2024 ambulatory Srinivasan Ball DO Work Phone: [facility] Work Phone: Start: 09-19-2024 End: 09-19-2024 Patient encounter procedure Srinivasan Ball DO -[facility] Work Phone: Start: 09-08-2024 End: 09-08-2024 ambulatory Srinivasan Ball DO Work Phone: [facility] Work Phone: Start: 09-08-2024 End: 09-08-2024 Patient encounter procedure Srinivasan Briggs DO -[facility] Work Phone: Start: 08-23-2024 End: 08-23-2024 ambulatory Srinivasan Briggs DO Work Phone: [facility] Work Phone: Start: 08-23-2024 End: 08-23-2024 Patient encounter procedure Saloni Soto MD -[facility] Work Phone: Start: 06-16-2024 End: 06-16-2024 Patient encounter procedure Srinivasan Briggs DO -[facility] Work Phone: Start: 05-05-2024 End: 05-05-[address] [facility] Work Phone: Start: 05-05-2024 End: 05-05-2024 Patient encounter procedure [facility] Work Phone: Start: 05-02-2024 End: 05-02-[address] [facility] Work Phone: Start: 05-02-2024 End: 05-02-2024 Patient encounter procedure [facility] Work Phone: Start: 03-10-2024 End: 03-10-[address] [facility] Work Phone: Start: 03-10-2024 End: 03-10-2024 Patient encounter procedure [facility] Work Phone: Start: 12-22-2023 End: 12-22-[address] [facility] Work Phone: Start: 12-22-2023 End: 12-22-2023 Patient encounter procedure [facility] Work Phone: Start: 12-16-2023 Non-patient / Non-visit [facility] Work Phone: Start: 12-09-2023 End: 12-09-[address] [facility] Work Phone: Start: 12-09-2023 End: 12-09-2023 Patient encounter procedure [facility] Work Phone: Start: 12-08-2023 Non-patient / Non-visit [facility] Work Phone: Start: 12-08-2023 End: 12-08-2023 Bamboo flowsheet Nelida Moise PA Work Phone: [facility] Start: 12-08-2023 End: 12-08-2023 Bamboo flowsheet Nelida Moise PA Work Phone: [facility] Start: 12-08-2023 End: 12-08-2023 Office outpatient visit 15 minutes Nelida Moise PA Work Phone: [facility] Comment on above: Seborrheic keratosis (Primary Dx); Actinic keratosis; History of squamous cell carcinoma of skin Start: 12-08-2023 End: 12-08-2023 ambulatory NELIDA MOISE Not Available Start: 12-07-2023 Patient encounter procedure [facility] Start: 10-29-2023 End: 10-29-[address] [facility] Work Phone: Start: 10-29-2023 End: 10-29-2023 Patient encounter procedure [facility] Work Phone: Start: 09-27-2023 End: 09-27-[address] [facility] Work Phone: Start: 09-27-2023 End: 09-27-2023 Patient encounter procedure [facility] Work Phone: Start: 09-14-2023 End: 09-14-[address] [facility] Work Phone: Start: 09-14-2023 End: 09-14-2023 Patient encounter procedure [facility] Work Phone: Start: 06-23-2023 End: 06-23-2023 Patient encounter procedure [facility] Work Phone: Start: 06-09-2023 End: 06-09-2023 ambulatory NELIDA L CELIA Not Available Start: 05-27-2023 End: 05-27-[address] [facility] Work Phone: Start: 05-27-2023 End: 05-27-2023 Patient encounter procedure [facility] Work Phone: Start: 04-09-2023 Non-patient / Non-visit [facility] [employer] Work Phone: Start: 03-19-2023 End: 03-19-2023 ambulatory Sriniavsan Briggs Other [employer] Other Start: 03-19-2023 Telephone encounter Srinivasan STANLEY [facility] Start: 03-15-2023 End: 03-15-2023 ambulatory Srinivasan Briggs Other [employer] Other Start: 03-15-2023 Nursing evaluation o f patient and report Srinivasan Briggs [facility] Start: 03-15-2023 Telephone encounter Srinivasan Briggs [facility] Start: 03-11-2023 End: 03-11-2023 ambulatory Srinivasan Briggs Other [employer] Other Start: 03-11-2023 Telephone encounter Srinivasan Briggs [facility] Start: 03-10-2023 End: 03-10-2023 ambulatory NELIDA L CELIA Not Available Start: 02-24-2023 End: 02-24-2023 ambulatory Srinivasan Briggs Other [employer] Other Start: 02-24-2023 Office outpatient vi sit 15 minutes Srinivasan Ball [facility] Start: 11-26-2022 End: 11-26-2022 ambulatory Srinivasan Ball Other [employer] Other Start: 11-26-2022 Telephone encounter Srinivasan Ball [facility] Start: 11-18-2022 End: 11-18-2022 ambulatory Srinivasan Ball Other [employer] Other Start: 11-18-2022 Patient encounter procedure Srinivasan Ball [facility] Start: 11-06-2022 End: 11-06-2022 ambulatory Srinivasan Ball Other [employer] Other Start: 11-06-2022 Telephone encounter Srinivasan Ball [facility] Start: 10-27-2022 End: 10-27-2022 ambulatory Srinivasan Ball Other [employer] Other Start: 10-27-2022 Office outpatient vi sit 15 minutes Srinivasan Ball [facility] Start: 08-25-2022 End: 08-25-2022 ambulatory Srinivasan Ball Other [employer] Other Start: 08-25-2022 Telephone encounter Srinivasan Ball [facility] Start: 08-24-2022 End: 08-24-2022 ambulatory Srinivasan Ball Other [employer] Other Start: 08-24-2022 Telephone encounter Srinivasan Ball [facility] Start: 08-19-2022 End: 08-19-2022 ambulatory Srinivasan Ball Other [employer] Other Start: 08-19-2022 Office outpatient vi sit 25 minutes Srinivasan Ball [facility] Start: 08-17-2022 End: 08-17-2022 ambulatory Srinivasan Ball Other [employer] Other Start: 08-17-2022 Telephone encounter Srinivasan Ball [facility] Start: 05-27-2022 End: 05-27-2022 ambulatory Srinivasan Briggs Other [employer] Other Start: 05-27-2022 Telephone encounter Srinivasan Iftikhar [facility] Start: 05-26-2022 Telephone encounter Srinivasan Iftikhar [facility] Start: 05-26-2022 End: 05-27-[address] SRINIVASAN BRIGGS [facility] [employer] Other Start: 05-25-2022 End: 05-25-2022 ambulatory Srinivasan Briggs Other [employer] Other Start: 05-25-2022 Telephone encounter Srinivasan Iftikhar STANLEY [facility] Start: 05-21-2022 End: 05-21-2022 ambulatory Srinivasan Briggs Other [employer] Other Start: 05-21-2022 Patient encounter procedure Srinivasan Briggs [facility] Start: 05-19-2022 End: 05-19-2022 ambulatory Srinivasan Briggs Other [employer] Other Start: 05-19-2022 Nursing evaluation o f patient and report Srinivasan Briggs [facility] Start: 03-24-2022 End: 03-24-2022 ambulatory Srinivasan Iftikhar Other [employer] Other Start: 03-24-2022 Office outpatient vi sit 15 minutes Srinivasan Briggs [facility] Start: 12-04-2021 End: 12-05-[address] SRINIVASAN BRIGGS Facility:[facility]1 Procedures Date Procedure Procedure Detail Performing Clinician Start: 12-08-2023 CRYOTHERAPY SKIN LESION Nelida BAUTISTA Work Phone: Plan of Treatment Date Care Activity Detail Author Start: 12-13-2024 End: 12-13-2024 Patient encounter procedure 12/13/2024 1:30 PM EST Office Visit [facility] [address] [place] [address] Nelida Moise PA [address] [place] [address] [facility] Start: 12-08-2023 End: 12-08-2023 Patient encounter procedure 12/08/2023 1:10 PM EDT Office Visit [facility] [address] [place] [address] Nelida Moise, MICHELE [address] [place] [address] Arrived [facility] Comment on above: Arrived Start: 10-10-2023 Influenza vaccination Influenza Vacc ine (#1) [facility] Start: 11-05-2019 Pneumococcal Vaccine : 65+ Years (2 of 2 - PPSV23 or PCV20) Pneumococcal Vaccine: 65+ Years (2 of 2 - PPSV23 or PCV20) [facility] Comprehensive metabo lic 2000 panel - Serum or Plasma [facility] Microalbumin [Mass/volume] in Urine [facility] Immunizations Immunization Date Immunization Notes Care Provider Fa cility 12-09-2023 influenza, high dose seasonal, preservative-free [facility] 11-18-2022 influenza virus vaccine, unspecified formulation [facility] 11-18-2022 influenza, high dose seasonal, preservative-free Srinivasan Briggs Other [facility] [employer] Other 01-16-2022 COVID-19 Pfizer (Pediatric) Srinivasan Briggs Other [facility] 01-15-2022 COVID-19 Pfizer (bivalent) Srinivasan Briggs Other [facility] 12-03-2021 influenza, high dose seasonal, preservative-free Srinivasan Briggs Other [employer] Other 12-03-2021 influenza virus vaccine, split virus (incl. purified surface antigen) Srinivasan Briggs Other [employer] Other 12-03-2021 influenza virus vaccine, unspecified formulation [facility] 11-20-2020 influenza virus vaccine, split virus (incl. purified surface antigen) Srinivasan Briggs Other [facility] [employer] Other 11-20-2020 influenza virus vaccine, unspecified formulation [facility] 11-09-2020 COVID-19 Vaccine Pfi zer - Documentation Purposes Only Srinivasan Briggs Other [facility] 03-22-2020 COVID-19 Vaccine Pfi zer - Documentation Purposes Only Srinivasan Briggs Other [facility] 03-12-2020 COVID-19 Vaccine Pfi zer - Documentation Purposes Only Srinivasan Briggs Other [facility] 03-02-2020 COVID-19 Vaccine Pfi zer - Documentation Purposes Only Srinivasan Briggs Other [facility] 11-22-2019 influenza virus vaccine, split virus (incl. purified surface antigen) Srinivasan Briggs Other [facility] [employer] Other 11-22-2019 influenza virus vaccine, unspecified formulation [facility] 11-04-2018 pneumococcal conjuga te vaccine, 13 valent Srinivasan Briggs Other [facility] 12-07-2017 influenza virus vaccine, split virus (incl. purified surface antigen) Srinivasan Briggs Other [facility] [employer] Other 12-07-2017 influenza virus vaccine, unspecified formulation [facility] 12-17-2016 influenza virus vaccine, split virus (incl. purified surface antigen) Srinivasan Briggs Other [facility] [employer] Other 12-17-2016 influenza virus vaccine, unspecified formulation [facility] 12-25-2015 influenza virus vaccine, split virus (incl. purified surface antigen) Srinivasan Briggs Other [place] [employer] Other 12-25-2015 influenza virus vaccine, unspecified formulation [facility] 01-10-2015 influenza virus vaccine, split virus (incl. purified surface antigen) Srinivasan Briggs Other [employer] Other 01-10-2015 influenza virus vaccine, unspecified formulation [facility] 11-21-2014 pneumococcal conjuga te vaccine, 13 valent Srinivasan Briggs Other [facility] Payers Date Payer Category Payer Private Health Insurance [facility] [place] [address] [id number] 2022 Unknown [id number] 2000 Medicare MEDICARE [id number] 5 1959 Medicare [id number] 1959 Unknown [id number] 1935 Unknown [id number] 1935 Unknown [id number] 1935 Unknown [id number] 1935 Unknown [id number] 1935 Unknown [id number] Self-pay Self Pay [id number] Social History Date Type Detail Facility Start: 06-09-2023 Sex Assigned At N [facility] [employer] Other Start: 1935 Sex Assigned At Female F [facility] Start: 11-19-2022 Tobacco smoking stat [facility] Never smoked tobacco [facility] Start: 11-19-2022 Tobacco use and exposure Smokeless tobacco non-user [facility] Start: 06-09-2023 End: 12-08-2023 Alcoholic beverage intake Lifetime non-drinker (finding) [facility] Start: 06-09-2023 History of Social function [facility] Start: 1935 Sex assigned at Not on file N [facility] Tobacco smoking stat [facility] Unknown if ever smoked [facility] Work Phone: Start: 12-22-2023 End: 05-05-2024 Sex Female (finding) [facility] Clinical Notes 03-24-2022 to 08-23-2024 Note Date & Type Note Facility 08-23-2024 Evaluation note Diagnosis Onset Date Resolution Dysuria acute August 23 10:34am Essential hypertension acute Au 2024 1:20pm Left knee pain acute September 1:20pm Primary osteoarthritis of left knee acute September 08, 2024 1:20pm Type 2 diabetes mellitus with hyperglycemia acute September 08 025 1:20pm [facility] Work Phone: 1(752) 681-853105-09-2025 Evaluation note* Diagnosis Onset Date Resolution Status Admit Date Left knee pain acute June 16 2 025 1:26pm Primary osteoarthritis of left knee acute June 16, 2024 1:26pm [facility] Work Phone: 1(549) 420-615105-09-2025 Evaluation note* Diagnosis Onset Date Resolution Status Admit Date Left knee pain acute June 16, 2 025 1:26pm Primary osteoarthritis of le ft knee acute June 16, 2024 1: 26pm Dysuria acute August 23 10:34am Essential hypertension acute Au 2024 1:20pm Left knee pain acute September 1:20pm Primary osteoarthritis of le ft knee acute September 08, 2024 1:20pm Type 2 diabetes mellitus wit h hyperglycemia acute September 08, 2024 1:20pm [facility] Work Phone: 1(994) 279-691003-25-2025 Evaluation note* Diagnosis Onset Date Resolution Status Admit Date Essential hypertension acute Ma [facility] 2024 11:18am Left knee pain acute April 11:18am Primary osteoarthritis of le ft knee acute May 02, 2024 11:18am Type 2 diabetes mellitus wit h hyperglycemia acute May 02, 2024 11:18am [facility] Work Phone: 1(232) 900-516811-13-2024 Evaluation note* Diagnosis Onset Date Resolution Status Admit Date Essential hypertension acute No [facility] 2023 11:26am Left knee pain acute December 092023 11:26am Primary osteoarthritis of le ft knee acute December 21, 2 024 11:26am Type 2 diabetes mellitus wit h hyperglycemia acute December 21, 024 11:26am [facility] Work Phone: 1(614) 315-106210-30-2024 History of Present illness Narrative* MICHELE Perrin - 12/08/2023 1:10 PM EDT Follow up Diagnosis: SCCIS Location: Mid frontal scalp Last visit: 06/09/2023 Symptoms: none Status: improving Procedure performed: Mohs Micrographic Surgery Date of procedure: Follow up Diagnosis: SCCIS Location: mid scalp Last visit: 03/10/2023 Symptoms: none Status: improved Procedure performed: Liquid Nitrogen Date of procedure: 12/15/2022 Location #3: face Duration: months Quality: denies pain, denies itch, denies bleeding Associated symptoms: rough, dry Treatments: none All pertinent medical history, medications, and allergies were reviewed. General Exam: alert, oriented to person, place, and time, normal affect, well appearing Accompanied by spouse A focused exam completed based on patient reported problems, see below: 1. Seborrheic keratosis (2) Head - Anterior (Face), Scalp Stuck on verrucous, variably pigmented papules and plaques. Patient was counseled regarding these benign growths. Removal is normally not necessary, but they may be removed if they are symptomatic or for cosmetic reasons. 2. Actinic keratosis (2) Mid Frontal Scalp, Mid Parietal Scalp Erythematous scaly papules Patient was counseled regarding these sun-induced growths that can develop into squamous cell carcinoma if left untreated. Discussed treatment with cryotherapy. It was emphasized that any treated lesions that fail to resolve should be re- evaluated. Cryotherapy performed today; see procedure note Diagnosis: Actinic keratosis Indication: Precancerous Location: see skin exam Consent: Verbal consent was obtained and risks were discussed, including, but not limited to risks of scarring, darker or cork insulation setter pigmentary changes, recurrence, incomplete removal and infection. Method: Liquid nitrogen was used to treat the lesion(s) with two 5-10 second freeze-thaw cycles. Number of lesions treated: 2 Post-procedure instructions: Instructions were given orally and in writing. The office will be contacted if the lesion fails to resolve despite treatment, or if a side effect develops such as abnormal crusting, scabbing, redness or tenderness Cryotherapy, skin lesion - Mid Frontal Scalp, Mid Parietal Scalp 3. History of squamous cell carcinoma of skin Next Visit: 1 year documented in this encounterProgress West [id number] Evaluation note* Diagnosis Onset Date Resolution Status Admit Date Cerumen impaction acute Septemb er 2023 8:42am Essential hypertension acute Se ptember 2023 8:42am Chronic kidney disease acute Oc tober 2023 11:18am Chronic venous insufficiency acute December 09, 2023 11:18am Elevated cholesterol acute Octo hamilton 2023 11:18am Essential hypertension acute Oc tober 2023 11:18am Hypothyroid acute December 09, 2023 11:18am Medicare annual wellness vis it, subsequent acute December 08 11:18am Type 2 diabetes mellitus wit h hyperglycemia acute December 08 11:18am Chronic kidney disease acute No vember 2023 11:26am Essential hypertension acute No 2023 11:26am Left knee pain acute December 092023 11:26am Primary osteoarthritis of le ft knee acute December 21 11:26am Type 2 diabetes mellitus wit h hyperglycemia acute December 21 11:26am [facility] Work Phone: 1(500) 517-449002-09-2024 Evaluation note* Encounter Date Diagnosis Assessment Notes Treatment Notes Treatment Clinical Notes Mar, Dysuria (ICD-10 - R30.0) [facility] Other 02-05-2024 Evaluation note* Encounter Date Diagnosis Assessment Notes Treatment Notes Treatment Clinical Notes Mar, Dysuria (ICD-10 - R30.0) [facility] Other 02-01-2024 Evaluation note* Encounter Date Diagnosis Assessment Notes Treatment Notes Treatment Clinical Notes Mar, Controlled type 2 diabetes mellitus with hyperglycemia, without long-term current use of insulin (ICD-10 - E11.65) [facility] Other 01-17-2024 Evaluation note* Encounter Date Diagnosis Assessment Notes Treatment Notes Treatment Clinical Notes Feb, Controlled type 2 diabetes mellitus [...] a normal BMI. Feb, Stage 3a chronic kid ruthie disease (ICD-10 - N18.31) The patient is instructed on adequate control of hypertension and diabetes, if appropriate. They are also educated on the associated risks of NSAIDs and PPI use with kidney disease. They were instructed on adequate fluid balance and to avoid dehydration. Feb, Pain in left knee (I CD-10 - M25.562) She realizes that the pain may worsen before it gets better. She is to rest today w/ intermittent use of ice. Feb, Primary osteoarthrit is of left knee (ICD-10 - M17.12) Quad exercises, ice/heat and Tylenol as needed. Avoid squatting or kneeling. 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) Clinically euthyroid, continue present treatment Monitor TSH yearly Feb, Other specified hypothyroidism (ICD-10 - E03.8) Feb, Pure hypercholestero lemia (ICD-10 - E78.00) Instructed [...] (ICD-10 - E66.09) Feb, Body mass index [BMI ] 32.0-32.9, adult (ICD-10 - Z68.32) [facility] Other 10-11-2023 Evaluation note* Encounter Date Diagnosis [...] High risk medication use (ICD-10 - Z79.899) [facility] Other 09-29-2023 Evaluation note* Encounter Date Diagnosis Assessment Notes Treatment Notes Treatment Clinical Notes Oct, Dysuria (ICD-10 - R30.0) [facility] Other 09-19-2023 Evaluation note* Encounter Date Diagnosis [...] best 2/3 readings w/ goal < 135/85 [facility] Other 07-17-2023 Evaluation note* Encounter Date Diagnosis Assessment Notes Treatment Notes Treatment Clinical Notes Aug, Stage 3a chronic kidney disease (ICD-10 - N18.31) [facility] Other 07-12-2023 Evaluation note* Encounter Date Diagnosis [...] Aug, 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) [facility] Other 07-10-2023 Evaluation note* Encounter Date Diagnosis Assessment Notes Treatment Notes Treatment Clinical Notes Aug, Stage 4 chronic kidney disease (ICD-10 - N18.4) [facility] Other 04-18-2023 Evaluation note* Encounter Date Diagnosis Assessment Notes Treatment Notes Treatment Clinical Notes May, Dysuria (ICD-10 - R30.0) [facility] Other 04-17-2023 Evaluation note* Encounter Date Diagnosis Assessment Notes Treatment Notes Treatment Clinical Notes May, Dysuria (ICD-10 - R30.0) [facility] Other 04-13-2023 Evaluation note* Encounter Date Diagnosis [...] High risk medication use (ICD-10 - Z79.899) [facility] Other 04-11-2023 Evaluation note* Encounter Date Diagnosis Assessment Notes Treatment Notes Treatment Clinical Notes May, Dysuria (ICD-10 - R30.0) [facility] Other 02-14-2023 Evaluation note* Encounter Date Diagnosis [...] continue exercise to achieve/maintain a normal BMI. 14 Mar, 2022 Controlled type 2 diabetes mellitus with hyperglycemia, [...] increase BS slightly for next couple weeks Mar, Other chronic pain (ICD-10 - G89.29) [facility] Other Evaluation noteNo InformationN[facility]Phys[facility] Other Evaluation note* Diagnosis Onset Date Resolution Status Chronic kidney disease acute Chronic venous insufficiency acute Elevated cholesterol acute Essential hypertension acute Hypothyroid acute Type 2 diabetes mellitus with hyperglycemia acute [facility] Work Phone: Evaluation note* Diagnosis Onset Date Resolution Status Chronic kidney disease acute Concussion acute Essential hypertension acute Hematoma of scalp acute Infected sebaceous cyst of skin acute Chronic kidney disease acute Essential hypertension acute Left knee pain acute Primary osteoarthritis of left knee acute Type 2 diabetes mellitus with hyperglycemia acute [facility] Work Phone: Evaluation note* Diagnosis Onset Date Resolution Status Chronic kidney disease acute Essential hypertension acute Left knee pain acute Primary osteoarthritis of left knee acute Type 2 diabetes mellitus with hyperglycemia acute [facility] Work Phone: Evaluation note* Diagnosis Onset Date Resolution Status Chronic kidney disease acute Essential hypertension acute Left knee pain acute Primary osteoarthritis of left knee acute Type 2 diabetes mellitus with hyperglycemia acute Cerumen impaction acute Essential hypertension acute [facility] Work Phone: Evaluation note* Diagnosis Seborrheic keratosis- Primary Actinic keratosis History of squamous cell carcinoma of skin Personal history of other malignant neoplasm of skin documented [facility] this [facility] Diagnosis Onset Date Resolution Status Chronic kidney disease acute Essential hypertension acute Left knee pain acute Primary osteoarthritis of left knee acute Type 2 diabetes mellitus with hyperglycemia acute Cerumen impaction acute Essential hypertension acute Chronic kidney disease acute Chronic venous insufficiency acute Elevated cholesterol acute Essential hypertension acute Hypothyroid acute Medicare annual wellness visit, subsequent acute Type 2 diabetes mellitus with hyperglycemia acute [facility] Work Phone: Evaluation note* Diagnosis Onset Date Resolution Status Admit Date Chronic kidney disease acute [facility] 2024 11:18am Essential hypertension acute [facility] 2024 11:18am Left knee pain acute April 11:18am Primary osteoarthritis of le ft knee acute May 02, 2024 11:18am Type 2 diabetes mellitus wit h hyperglycemia acute May 02, 2024 11:18am [facility] Work Phone: History general Narrative - Reported* Type Description [...] 0 06/2020 Hospitalization History see surgical history [facility] Other History general Narrative - Reported* Type [...] 0 06/2020 Hospitalization History see surgical history [facility] Other Reason for referral (narrative)No reason for referral information available[facility] Work Phone: Summary Purpose Family History Relationship Condition Age at Onset Recorded Date/T estephania father Unknown Not Specified Unknown Relationship Condition Age at Onset Recorded Date/T estephania father Unknown mother Unknown Advance Directives Advance Directive Response Recorded Date/ Time Advance Directives No June 26 1 4:26pm Advance Directive Response Recorded Date/ Time Advance Directives No June 26 1 3:26pm Chief Complaint and Reason for Visit Chief Complaint Amb Documentation 3 month follow up Reason for Visit Chronic kidney disea se Chronic venous insufficiency Elevated cholesterol Essential hypertension Hypothyroid Type 2 diabetes mellitus with hyperglycemia Chief Complaint [facility] ER F/U left knee injection Reason for Visit Chronic kidney disea se Concussion Essential hypertension Hematoma of scalp Infected sebaceous cyst of skin Chronic kidney disease Essential hypertension Left knee pain Primary osteoarthritis of left knee Type 2 diabetes mellitus with hyperglycemia Chief Complaint left knee injection UA, frequency, burning Reason for Visit Chronic kidney disea se Essential hypertension Left knee pain Primary osteoarthritis of left knee Type 2 diabetes mellitus with hyperglycemia Chief Complaint left knee injection UA, frequency, burning bilateral ear fullness Reason for Visit Chronic kidney disea se Essential hypertension Left knee pain Primary osteoarthritis of left knee Type 2 diabetes mellitus with hyperglycemia Cerumen impaction Essential hypertension Chief Complaint left knee injection UA, frequency, burning bilateral ear fullness CC Adult Risk Stratification Wellness Reason for Visit Chronic kidney disea se Essential hypertension Left knee pain Primary osteoarthritis of left knee Type 2 diabetes mellitus with hyperglycemia Cerumen impaction Essential hypertension Chronic kidney disease Chronic venous insufficiency Elevated cholesterol Essential hypertension Hypothyroid Medicare annual wellness visit, subsequent Type 2 diabetes mellitus with hyperglycemia Chief Complaint Admit Date UA, frequency, burning September 27, 2023 10:17am bilateral ear fullness October 28 8:42am CC Adult Risk Stratification November 2:58pm Wellness December 09, 2023 1 1:18am Cortisone Shot December 22, 2023 11:26am Reason for Visit Admit Date Cerumen impaction October 29, 2023 8:42am Essential hypertension October 28 8:42am Chronic kidney disease December 08 11:18am Chronic venous insufficiency November 11:18am Elevated cholesterol December 09, 2023 11:18am Essential hypertension December 08 11:18am Hypothyroid December 09, 2023 1 1:18am Medicare annual wellness visit, subseque nt December 09, 2023 11:18am Type 2 diabetes mellitus with hyperglyce [facility] December 09, 2023 11:18am Chronic kidney disease December 21 11:26am Essential hypertension December 21 11:26am Left knee pain December 22, 2023 11:26am Primary osteoarthritis of left knee Nove mb 2023 11:26am Type 2 diabetes mellitus with hyperglyce [facility] December 22, 2023 11:26am Chief Complaint Admit Date Cortisone Shot December 22, 2023 11:26am UA, burning, frequency March 10 11:04am Reason for Visit Admit Date Essential hypertension December 21 11:26am Left knee pain December 22, 2023 11:26am Primary osteoarthritis of left knee Seth mbisabelle 2023 11:26am Type 2 diabetes mellitus with hyperglyce evette December 22, 2023 11:26am Chief Complaint Admit Date UA, burning, frequency March 10 11:04am Cortisone shot in knee May 02, 2024 11:18am Reason for Visit Admit Date Chronic kidney disease May 02, 2024 11:18am Essential hypertension May 02, 2024 11:18am Left knee pain May 02, 2024 11: 18am Primary osteoarthritis of left knee Conor h 2024 11:18am Type 2 diabetes mellitus with hyperglyce evette May 02, 2024 11:18am Chief Complaint Admit Date UA, burning, frequency March 10 11:04am Cortisone shot in knee May 02, 2024 11:18am UA, burning, urgency May 05, 2024 1: 27pm Reason for Visit Admit Date Essential hypertension May 02, 2024 11:18am Left knee pain May 02, 2024 11: 18am Primary osteoarthritis of left knee Conor h 2024 11:18am Type 2 diabetes mellitus with hyperglyce evette May 02, 2024 11:18am Chief Complaint Admit Date left knee pain June 16, 2024 1:26pm UA, burning, frequency August 23, 2024 1 0:34am Reason for Visit Admit Date Left knee pain June 16, 2024 1:26pm Primary osteoarthritis of left knee June 16, 2024 1:26pm Chief Complaint Admit Date left knee pain June 16, 2024 1:26pm UA, burning, frequency August 23, 2024 1 0:34am L Knee Cortisone Shot September 08, 2024 1 :20pm Reason for Visit Admit Date Left knee pain June 16, 2024 1:26pm Primary osteoarthritis of left knee June 16, 2024 1:26pm Dysuria August 23, 2024 10:3 4am Essential hypertension September 08, 2024 1:20pm Left knee pain September 08, 2024 1:2 0pm Primary osteoarthritis of left knee Augu 2024 1:20pm Type 2 diabetes mellitus with hyperglyce evette September 08, 2024 1:20pm Chief Complaint Admit Date UA, burning, frequency August 23, 2024 1 0:34am L Knee Cortisone Shot September 08, 2024 1 :20pm UA:Frequency/Burning September 19, 2024 1 :42pm Reason for Visit Admit Date Dysuria August 23, 2024 10:3 4am Essential hypertension September 08, 2024 1:20pm Left knee pain September 08, 2024 1:2 0pm Primary osteoarthritis of left knee Augu 2024 1:20pm Type 2 diabetes mellitus with hyperglyce evette September 08, 2024 1:20pm Additional Source Comments INFORMATION SOURCE (unrecogn ized section and content) DATE CREATED AUTHOR 02/25/2021 [facility] DATE CREATED AUTHOR AUTHOR'S ORGANIZ ATION 05/31/2022 [facility] DATE CREATED AUTHOR AUTHOR'S ORGANIZ ATION 12/10/2023 [facility] EPIC REASON FOR VISIT (unrecogniz ed section and content) Reason Comments Skin Check Care Teams (unrecognized sec tion and content) Team Status: Active Member Role Status Dates Srinivasan Briggs DO Primary Care Provider Active Team Status: Inactive Member Role Status Dates Srinivasan Briggs DO Primary Care Provide r, Attending Provider Active Start: March 10, 2024 End: March 10, 2024 Team Status: Inactive Member Role Status Dates Srinivasan Briggs DO Primary Care Provide r, Attending Provider Active Start: May 02, 2024 End: May 02, 2024 Team Status: Active Member Role Status Dates Srinivasan Briggs DO Primary Care Provide r, Attending Provider Active Start: December 16, 2023 Team Status: Inactive Member Role Status Dates Srinivasan Briggs DO Primary Care Provide r, Attending Provider Active Start: December 22, 2023 End: December 22, 2023 Team Status: Inactive Member Role Status Dates Srinivasan Briggs DO Primary Care Provide r, Attending Provider Active Start: June 23, 2023 End: June 23, 2023 Team Status: Inactive Member Role Status Dates Srinivasan Briggs DO Primary Care Provide r, Attending Provider Active Start: September 14, 2023 End: September 14, 2023 Team Status: Active Member Role Status Dates Srinivasan Briggs DO Primary Care Provider Active Start: April 09, 2023 KEYSHA Ibarra Attending Provider Active Start : April 09, 2023 Team Status: Inactive Member Role Status Dates Srinivasan Briggs , DO Primary Care Provide r, Attending Provider Active Start: May 27, 2023 End: May 27, 2023 Team Status: Inactive Member Role Status Dates Srinivasan Briggs DO Primary Care Provide r, Attending Provider Active Start: September 27, 2023 End: September 27, 2023 Team Status: Inactive Member Role Status Dates Srinivasan Briggs , DO Primary Care Provide r, Attending Provider Active Start: October 29, 2023 End: October 29, 2023 Team Status: Active Member Role Status Dates Srinivasan Briggs DO Primary Care Provide r, Attending Provider Active Start: December 08, 2023 Team Status: Inactive Member Role Status Dates Srinivasan Briggs DO Primary Care Provide r, Attending Provider Active Start: December 09, 2023 End: December 09, 2023 Team Status: Inactive Member Role Status Dates Srinivasan Briggs DO Primary Care Provide r, Attending Provider Active Start: May 05, 2024 End: May 05, 2024 Team Status: Inactive Member Role Status Dates Srinivasan Briggs DO Primary Care Provider Active Start: June 16, 2024 End: June 16, 2024 Srinivasan Briggs DO Attending Provider Active Sta rt: June 16, 2024 End: June 16, 2024 Team Status: Inactive Member Role Status Lester Briggs DO Primary Care Provider Active Start: August 23, 2024 End: August 23, 2024 Saloni Soto MD Attending Provider Active St art: August 23, 2024 End: August 23, 2024 Team Status: Inactive Member Role Status Dates Srinivasan Briggs DO Primary Care Provider Active Start: September 08, 2024 End: September 08, 2024 Srinivasan Briggs DO Attending Provider Active Sta rt: September 08, 2024 End: September 08, 2024 Team Status: Inactive Member Role Status Dates Srinivasan Briggs DO Primary Care Provider Active Start: September 19, 2024 End: September 19, 2024 Srinivasan Briggs , Attending Provider Active Sta rt: September 19, 2024 End: September 19, 2024 Goals (unrecognized section and content) Goals may be documented in a n alternate section FOR RECORDS PERTAINING TO PATIENTS WHO ARE [...] BE BASED ON THE PRIMARY CLINICAL RECORDS. [facility] [employer]. provides no warranty or guarantee of the accuracy or completeness of information in this document.
== END 2024-10-04 12:08 | disposition home or self-care (01) ==
PROVIDERS: PCP Internal Medicine; Visit Provider Internal Medicine
DX: M54.50 Low back pain, unspecified (principal); M85.88 Other specified disorders of bone density and structure, other site; M51.369 Other intervertebral disc degeneration, lumbar region without mention of lumbar back pain or lower extremity pain
CPT/HCPCS: 72114

== ENCOUNTER 2024-11-24 07:04 | Outpatient (OUT) | payer MEDICARE, OTHER, SELFPAY ==
--- NOTE | 2024-11-24 | XR_ITS ---
The [address] [address] Patient Name: YANET CARLOS MRN: [id number] date: 1935 Sex: F Assigned Patient Location: [facility] Current Patient Location: [facility] Accession/Order Number: [id number] Exam Date: 11/24/2024 10:25 Report Date: 11/24/2024 11:08 At the request of: REESE CRESPO MD Procedure: XR knee RT 3V AP PELVIS: , Right knee 4 views CLINICAL HISTORY: M25.561 Pain in right knee COMPARISON: Right knee 11/01/2019 FINDINGS: Pelvis demonstrates mild degenerative changes of the hips. No acute bony process. Additional degenerative changes seen involving the visualized lower lumbar spine, SI joints and pubic symphysis. Bones are grossly demineralized. 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 No acute bony process. Bones are grossly demineralized. Vascular calcifications. XR/XR pelvis 1-2V IMPRESSION: MILD DEGENERATIVE CHANGES INVOLVING THE HIPS. TKA WITHOUT RADIOGRAPHIC COMPLICATION. Impression dictated by: Pop Beck Jr., D.O. 11/24/2024 11:08 AM Dictation Location: [place] [address] Electronically authenticated by: [id number] Y Date: 11/24/2024 11:08
--- NOTE | 2024-11-24 | XR_ITS ---
The [place] [id number] Patient Name: YANET CARLOS MRN: [id number] date: 1935 Sex: F Assigned Patient Location: [facility] Current Patient Location: [facility] Accession/Order Number: [id number] Exam Date: 11/24/2024 10:25 Report Date: 11/24/2024 11:08 At the request of: REESE CRESPO MD Procedure: XR knee RT 3V AP PELVIS: , Right knee 4 views CLINICAL HISTORY: M25.561 Pain in right knee COMPARISON: Right knee 11/01/2019 FINDINGS: Pelvis demonstrates mild degenerative changes of the hips. No acute bony process. Additional degenerative changes seen involving the visualized lower lumbar spine, SI joints and pubic symphysis. Bones are grossly demineralized. 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 No acute bony process. Bones are grossly demineralized. Vascular calcifications. XR/XR knee RT 3V IMPRESSION: MILD DEGENERATIVE CHANGES INVOLVING THE HIPS. TKA WITHOUT RADIOGRAPHIC COMPLICATION. Impression dictated by: Pop Beck Jr. DGloria 11/24/2024 11:08 AM Dictation Location: [place] [address] Electronically authenticated by: [id number] Y Date: 11/24/2024 11:08
--- OUTSIDE RECORDS SUMMARY | 2024-11-24 07:06 | XMS_ITS | Clinical Summary ---
Author Organization [facility] Address [address] [facility] [place] [address] Care Team Providers Care Projection Printer Name Role Phone Unavailable Primary Care Provider Unavailabl e Allergies No known active allergies Medications simvastatin (Zocor) 20 MG tablet 1 (one) time each day at the same time. Active levothyroxine (Synthroid, Levoxyl) 50 MCG tablet TAKE 1 TABLET BY MOUTH EVERY DAY ON EMPTY STOMACH Active lisinopril-hydr oCHLOROthiazide 20-12.5 MG tablet Take 1 tablet by mouth in the morning. Active allopurinol (Zyloprim) 100 MG tablet Take 200 mg by mouth in the morning. Active levoFLOXacin (Levaquin) 250 MG tablet TAKE 1 TABLET BY MOUTH EVERY DAY FOR 5 DAYS 05/27/2022 Active metFORMIN (Glucophage) 500 MG tablet Active Active Problems No known active problems Family History Medical History Relation Name Comments Melanoma Neg Hx Relation Name Status Comments Father Mother Social History Tobacco Use Types Packs/Day Years Used Date Smoking Tobacco: Never Smokeless Tobacco: Never Tobacco Cessation:Counseling Given: Not Answered Alcohol Use Standard Drinks/Week Comments Never 0 (1 standard drink = 0.6 oz pur e alcohol) Comments Unknown Sex and Gender Information Value Date Recorded Sex Assigned at Not on file Legal Sex Female 9:44 PM EDT Gender Identity Not on file Sexual Orientation Not on file Last Filed Vital Signs Vital Sign Reading Time Taken Comments Blood Pressure 130/82 11/19/2022 2:13 PM EDT Pulse - - Temperature - - Respiratory Rate - - Oxygen Saturation - - Inhaled Oxygen Concentration - - Weight 84.4 kg (186 lb) 06/05/2022 12:00 PM EDT Height 162.6 cm (5' 4 ) 06/05/2022 12:00 PM EDT Body Mass Index 31.93 06/05/2022 12:00 PM EDT Plan of Treatment Upcoming Encounters Date Type Department Care Team (Late st Contact Info) Description 12/13/2024 1:20 PM EST [facility] [address] [place] [id number] Dunia Benites PA [address] [place] [address] Health Maintenance Due Date Last Done Comments Pneumococcal Vaccine: 65+ Ye ars (2 of 2 - PCV20 or PCV21) 11/05/2019 11/04/2018, 11/21/2014 Influenza Vaccine (#1) 2024 3, 12/03/2021, 11/20/2020, Additional history exists [place] [address] MEDICARE [facility] [place] [address]
--- OUTSIDE RECORDS SUMMARY | 2024-11-24 07:07 | XMS_ITS | CCD ---
Author Organization [facility] Inform ion Partnership [facility] Care Team Providers Care Envelope Patternmaker Name Role Phone Srinivasan Briggs Unavailable IFTIKHAR, [...] Unavailable Srinivasan Briggs DO Primary Care Provider Srinivasan Briggs DO Attending Provider [phone] Saloni Soto MD Attending Provider [phone] Srinivasan Briggs DO Primary Care Provider [phone] Srinivasan Briggs DO Attending Provider [phone] Medications Current Medications Medication Drug Class(es) Dates [...] 26, 2023 12:00am November 02, 2023 7:38am diclofenac sodium 0.01 mg/mg topical gel (20 [...] tablet Discontinued 1 TAB PO Daily 90 April 02, 2023 1:00am March 23, [...] day Active levoFLOXacin 250 mg oral tablet (10 sources) Quinolone Antimicrobial Start: 09-19-2024 End: 09-25-2024 take 1 tablet by mouth once daily Start: 05-27-2022 take 1 tablet by marc th once daily levoFLOXacin (Levaquin) 250 MG tablet TAKE 1 TABLET BY MOUTH EVERY DAY FOR 5 DAYS 05/27/2022 Active levothyroxine sodium 0.05 mg oral tablet (20 sources) l-Thyroxine Start: 09-25-2024 take 1 tablet by marc th once daily Start: 08-30-2023 End: 09-25-2024 take 1 tablet by mouth once daily Levothyroxine 50 mcg tablet Discontinued 0 .ROUTE .COMPLEX June 18, 2024 5:21pm September 25, 2024 12:50pm TAKE 1 TABLET BY MOUTH EVERY DAY ON EMPTY STOMACH Start: 05-26-2023 End: 08-30-2023 take 1 tablet [...] HMG-CoA Reductase Inhibitor Start: 04-09-19 End: 03-21-19 take 1 tablet by mouth once daily in the evening Start: 04-09-2023 End: 04-09-2023 take 1 tablet by mouth once daily Simvastatin 20 mg tablet Discontinued 20 MG PO Daily April 09, 2023 1:00am April 09, 2023 6:07pm Completed/Discontinued Medications Medication Drug Class(es) Dates Sig (Normalized) Sig (Original) ciprofloxacin 250 mg oral tablet (20 sources) Quinolone Antimicrobial Start: 08-23-2024 End: 09-19-2024 take 1 tablet by mouth twice daily Ciprofloxacin Hcl 250 mg tablet Discontinued 250 MG PO Twice daily 10 August 23, 2024 11:17am September 19, 2024 2:37pm Start: 05-05-2024 End: 06-16-2024 take 1 tablet by mouth twice daily Ciprofloxacin Hcl 250 mg tablet Discontinued 250 MG PO Twice daily 11 12May 05, 2024 12:00am June 16, 2024 1:36pm Start: 09-27-2023 End: 05-02-2024 take 1 tablet by mouth twice daily Ciprofloxacin Hcl 250 mg tablet Discontinued 250 MG PO Twice daily 11 12March 10, 2024 12:41pm May 02, 2024 11:23am Start: 03-15-2023 take 1 tablet by marc th every twelve hours Ciprofloxacin HCl 250 MG 1 tablet Orally every 12 hrs for 5 days Mar, Active Start: 11-06-2022 take 1 tablet by marc th every twelve hours Ciprofloxacin HCl 250 MG 1 tablet Orally every 12 hrs for 5 days Oct, Active doxycycline hyclate 100 mg oral capsule (13 sources) Tetracycline-class Drug Start: 06-23-2023 End: 09-27-2023 take 1 [...] suspension (20 sources) Corticosteroid Start: 03-24-2022 Kenalog-40 Oct, 40 mg Problems Active Problems Problem Classification [...] Translations: [Dysuria] Onset: 12-04-2021 Episodic Intracranial injury (14 sources) Concussion injury of body structure; Translations: [Concussion] 06-23-2023 Episodic Osteoarthritis (20 sources) Osteoarthritis of left knee joint; Translations: [Unilateral primary osteoarthritis, left knee] Chronic Other acquired deformities (4 sources) Scoliosis deformity of spine; Translations: [Other forms of scoliosis, lumbosacral region] 10-08-2024 Chronic Other aftercare (20 sources) H/O: high risk medication; Translations: [Other buttermaker (current) drug therapy] Episodic Other aftercare (4 sources) Other skilled nursing (current) drug therapy; Translations: [OTH PRISON CURRENT DRUG THERAPY] Onset: 05-31-2022 Episodic Other bone disease and musculoskeletal deformities (4 sources) Osteopenia; Translations: [Other specified disorders of bone density and structure, unspecified site] 10-08-2024 Episodic Other connective tissue disease (20 sources) [...] Episodic Other ear and sense organ disorders (11 sources) Impacted cerumen; Translations: [Impacted cerumen, unspecified [...] pain] 09-12-2023 Episodic Other non-traumatic joint disorders (20 sources) Pain in left knee; Translations: [Pain [...] (BMI) 32.0-32.9, adult Chronic Other skin disorders (13 sources) Infection of sebaceous cyst; Translations: [Sebaceous [...] of patient's decision for unspecified reasons Episodic Spondylosis; intervertebral disc disorders; other back problems (4 sources) Lumbar spondylosis; Translations: [Spondylosis without myelopathy or radiculopathy, lumbar region] 10-08-2024 Chronic Spondylosis; intervertebral disc disorders; other back problems (4 sources) Low back pain; Translations: [Low back pain] 10-08-2024 Episodic Superficial injury; contusion (14 sources) Hematoma of scalp; Translations: [Contusion of [...] Chemistry and C hemistry - challengeOrdered By: Srinivasan Briggs on 09-19-2024 Bilirubin Ql (U) Negative [facility] Glucose (U) [Mass/Vol] Negative [facility] Ketones Ql (U) Negative [facility] pH (U) 5.0 [pH] [facility] Specific gravity (U) [Rel density] 1.010 [facility] Urobilinogen (U) [Mass/Vol] 0.2 mg/dL [facility] - Specimen inform ationOrdered By: Srinivasan Briggs on 09-19-2024 Appearance (U) cloudy [facility] Color (U) yellow [facility] - UrinalysisOrder ed By: Srinivasan Briggs on 09-19-2024 Leukocyte esterase Test strip Ql (U) +++ [facility] Nitrite Ql (U) Negative [facility] Protein Ql (U) + [facility] No Panel InformationOrdered By: Srinivasan Briggs on 09-19-2024 Urine Occult Blood ++ [place] [facility] - Chemistry and C hemistry - challengeOrdered By: Saloni Soto on 08-23-2024 Bilirubin Ql (U) Negative [facility] Glucose (U) [Mass/Vol] Negative [facility] Ketones Ql (U) Negative [facility] pH (U) 5.0 [pH] [facility] Specific gravity (U) [Rel density] 1.010 [facility] Urobilinogen (U) [Mass/Vol] 0.2 mg/dL [facility] - Specimen inform ationOrdered By: Saloni Soto on 08-23-2024 Appearance (U) cloudy [facility] Color (U) darkyellow [facility] - UrinalysisOrder ed By: Saloni Soto on 08-23-2024 Leukocyte esterase Test strip Ql (U) ++ [facility] Nitrite Ql (U) Positive [facility] Protein Ql (U) ++ [facility] No Panel InformationOrdered By: Saloni Soto on 08-23-2024 Urine Occult Blood +++ [place] [facility] - Chemistry and C hemistry - challengeon 03-10-2024 Bilirubin Ql (U) Negative [facility] Glucose (U) [Mass/Vol] Negative [facility] Ketones Ql (U) Negative [facility] pH (U) 5.0 [pH] [facility] Specific gravity (U) [Rel density] 1.010 [facility] - Specimen inform ationon 03-10-2024 Appearance (U) cloudy [facility] Color (U) yellow [facility] - Urinalysison Leukocyte esterase Test strip Ql (U) +++ [facility] Nitrite Ql (U) Positive [facility] Protein Ql (U) +++ [facility] No Panel Informationon 03-10 Urine Occult Blood +++ [place] Urine Urobilinogen offchart [place] Basophils Auto (Bld) [#/Vol] on 12-16-2023 Basophils (Bld) [#/Vol] Automated basophil count 0.0-0.1 [facility] Basophils/100 WBC Auto (Bld) on 12-16-2023 Basophils/100 WBC (Bld) Automated basophil % 0.2-2.0 [facility] Eosinophils/100 WBC Auto (Bl d)on 12-16-2023 Eosinophils/100 WBC (Bld) Automated eosinophil % 0.9-7.0 [facility] Erythrocyte distribution wid th Auto (RBC) [Ratio]on 12-16-2023 Erythrocyte distribution width (RBC) [Ratio] Erythrocyte distribution width [Ratio] by Automated count 11.0-15.0 [facility] Estimated glomerular filtrat ion rate (GFR) non- Americanon 12-16-2023 GFR/1.73 sq M.predicted among non-blacks MDRD (S/P/Bld) [Vol rate/Area] Estimated glomerular filtration rate (GFR) non- Low >=60 mL/min/1.73m 2 [facility] Globulin Calc (S) [Mass/Vol] on 12-16-2023 Globulin (S) [Mass/Vol] Serum globulin measurement by calculation (mass/volume) [facility] Glucose mean value [Mass/vol ume] in Blood Estimated from glycated hemoglobinon 12-16-2023 Average glucose Estimated from glycated hemoglobin (Bld) [Mass/Vol] Glucose mean value [Mass/volume] in Blood Estimated from glycated hemoglobin [facility] Hematocrit Auto (Bld) [Volum e fraction]on 12-16-2023 Hematocrit (Bld) [Volume fraction] Hematocrit [Volume Fraction] of Blood by Automated count 36.0-48.0 [facility] Hemoglobin [Mass/volume] in Bloodon 12-16-2023 Hemoglobin (Bld) [Mass/Vol] Hemoglobin [Mass/volume] in Blood 12.0-16.0 [facility] - Chemistry and C hemistry - challengeon 12-16-2023 Albumin [Mass/Vol] 3.4 g/dL 3.4-5.0 [place] ALP [Catalytic activity/Vol] 56 U/L 46-116 [facility] ALT [Catalytic activity/Vol] 14 U/L 14-59 [facility] AST [Catalytic activity/Vol] 19 U/L 15-37 [facility] Bilirubin [Mass/Vol] 0.5 mg/dL 0.2-1.0 [facility] Calcium [Mass/Vol] 9.7 mg/dL 8.5-10.1 [place] Chloride [Moles/Vol] 106 mmol/L 98-107 [facility] CO2 [Moles/Vol] 26.4 mmol/L 21.0-32.0 [facility] Creatinine [Mass/Vol] 1.33 mg/dL High 0.55-1.02 [facility] GFR/1.73 sq M.predicted MDRD (S/P/Bld) [Vol rate/Area] 46 mL/min/{1.73_m2} Low >=60 mL/min/1.73m 2 [facility] Glucose [Mass/Vol] 135 mg/dL High 74-106 [place] Potassium [Moles/Vol] 4.2 mmol/L 3.5-5.1 [facility] Protein [Mass/Vol] 7.2 g/dL 6.4-8.2 [place] Sodium [Moles/Vol] 143 mmol/L 136-145 [place] TSH Qn 2.661 m[IU]/L 0.358-3.740 [facility] Urea nitrogen [Mass/Vol] 31.0 mg/dL High 7.0-18.0 [facility] Urea nitrogen/Creatinine [Mass ratio] 23.3 mg/mg [facility] - Hematology and Cell countson 12-16-2023 HbA1c (Bld) [Mass fraction] 6.4 % High 4.5-6.2 [facility] Comment on above: ADA RECOMMENDED LIMI T 4.0 - 6.0ADA THERAPEUTIC TARGET < 7.0ACTION SUGGESTED> 7.0 Immature granulocytes/100 WBC (Bld) 0.3 % 0.0-0.5 [facility] Leukocytes [#/volume] correc antonio for nucleated erythrocytes in Blood by Automated counon 12-16-2023 WBC corrected for nucl RBC Auto (Bld) [#/Vol] Leukocytes [#/volume] corrected for nucleated erythrocytes in Blood by Automated coun 4.0-11.0 [facility] Lymphocytes Auto (Bld) [#/Vo l]on 12-16-2023 Lymphocytes (Bld) [#/Vol] Lymphocytes [#/volume] in Blood by Automated count 1.2-3.8 [facility] Lymphocytes/100 WBC Auto (Bl d)on 12-16-2023 Lymphocytes/100 WBC (Bld) Lymphocytes/100 leukocytes in Blood by Automated count 20.5-60.0 [facility] MCH Auto (RBC) [Entitic mass ]on 12-16-2023 MCH (RBC) [Entitic mass] MCH [Entitic mass] by Automated count 26.7-34.0 [facility] MCHC Auto (RBC) [Mass/Vol]on 12-16-2023 MCHC (RBC) [Mass/Vol] MCHC [Mass/volume] by Automated count 29.9-35.2 [facility] MCV Auto (RBC) [Entitic vol] on 12-16-2023 MCV (RBC) [Entitic vol] MCV [Entitic volume] by Automated count High 81.0-99.0 [facility] Microalbumin [Mass/volume] i n Urineon 12-16-2023 Albumin DL <= 20 mg/L (U) [Mass/Vol] Microalbumin [Mass/volume] in Urine <=30.0 [facility] Monocytes Auto (Bld) [#/Vol] on 12-16-2023 Monocytes (Bld) [#/Vol] Automated blood monocyte count 0.3-0.8 [facility] Monocytes/100 WBC Auto (Bld) on 12-16-2023 Monocytes/100 WBC (Bld) Automated monocyte % 1.7-12.0 [facility] Neutrophils Auto (Bld) [#/Vo l]on 12-16-2023 Neutrophils (Bld) [#/Vol] Neutrophils [#/volume] in Blood by Automated count 1.4-6.5 [facility] Neutrophils/100 WBC Auto (Bl d)on 12-16-2023 Neutrophils/100 WBC (Bld) Automated neutrophil % 43.0-75.0 [facility] No Panel Informationon 12-15 Eosinophils # (Auto) 0.2 10 3/uL 0.0-0.7 [facility] Immature Granulocyte # (Auto) 0.03 10 3/uL 0.00-0.03 [facility] Platelet mean volume Auto (B ld) [Entitic vol]on 12-16-2023 Platelet mean volume (Bld) [Entitic vol] Platelet mean volume [Entitic volume] in Blood by Automated count 9.5-13.5 [facility] Platelets Auto (Bld) [#/Vol] on 12-16-2023 Platelets (Bld) [#/Vol] Platelets [#/volume] in Blood by Automated count 150-450 [facility] RBC Auto (Bld) [#/Vol]on RBC (Bld) [#/Vol] Erythrocytes [#/volume] in Blood by Automated count Low 4.20-5.40 [facility] Serum or plasma albumin/glob ulin mass ratioon 12-16-2023 Albumin/Globulin [Mass ratio] Serum or plasma albumin/globulin mass ratio [facility] Serum or plasma anion gap de terminationon 12-16-2023 Anion gap [Moles/Vol] Serum or plasma anion gap determination [facility] No Panel Informationon 12-07 [facility] - Chemistry and C hemistry - challengeon 09-27-2023 Bilirubin Ql (U) Negative [facility] Glucose (U) [Mass/Vol] [facility] Ketones Ql (U) + [facility] pH (U) 5.0 [pH] [facility] Specific gravity (U) [Rel density] 1.025 [facility] Urobilinogen (U) [Mass/Vol] 0.2 mg/dL [facility] - Specimen inform ationon 09-27-2023 Appearance (U) cloudy [facility] Color (U) darkyellow [facility] - Urinalysison Leukocyte esterase Test strip Ql (U) ++ [facility] Nitrite Ql (U) Negative [facility] Protein Ql (U) ++++ [facility] No Panel Informationon 09-26 Urine Occult Blood +++ [place] Urinalysis - DIPSTICKon Appearance (U) cloudy [employer] Other Bilirubin Ql (U) Negative [employer] Other Color (U) Rule [employer] Other Glucose Ql (U) Negative [employer] Other Hemoglobin Ql (U) +++ [employer] Other Ketones Ql (U) Negative [employer] Other Leukocyte esterase Test strip Ql (U) ++ [employer] Other Nitrite Ql (U) + [employer] Other pH (U) 5.0 [pH] [employer] Other Protein Ql (U) +++ [employer] Other Specific gravity (U) [Rel density] 1.015 [employer] Other Urobilinogen (U) [Mass/Vol] 2 mg/dL [employer] Other Urinalysis - DIPSTICK [employer] Other Basic Metabolic Panelon 05-09 Calcium [Mass/Vol] 9.0189988 mg/dL 8.5-10 .1 mg/dL [employer] Other CO2 [Moles/Vol] 26.39901180 mmol/L 21.0-3 2.0 mmol/L [employer] Other Creatinine [Mass/Vol] 1.03313418 mg/dL Critically high 0.55-1.02 mg/dL [facility] [employer] Other Potassium [Moles/Vol] 5.85598560 mmol/L 3 .5-5.1 mmol/L [place] [employer] Other Urea nitrogen [Mass/Vol] 53.7201397 mg/dL Critically high 7.0-18.0 mg/dL [facility] [employer] Other Basic Metabolic Panel see note [employer] Other Basic Metabolic Panel 141 mmol/L 136-14 5 mmol/L [facility] [employer] Other Basic Metabolic Panel 109 mg/dL Critically high 74-106 mg /dL [facility] [employer] Other Basic Metabolic Panel 25 mL/min/1.73m2 Critically low >=60 mL/min/1.73m2 [facility] [employer] Other Basic Metabolic Panel 30 mL/min/1.73m2 Critically low >=60 mL/min/1.73m2 [facility] [employer] Other CBC AUTO DIFFon 05-26-2022 BASO # 0.1 103/ul Normal 0.0-0.1 [facility] Comment on above: Performed By: #### C BC #### [facility] [address] [place] [address] Dr. Judith Solorio Basophils/100 WBC (Bld) 0.5 % Normal 0.2-2.0 [facility] Comment on above: Performed By: #### C BC #### [facility] [address] [place] [address] Dr. Judith Solorio EO # 0.2 103/ul Normal 0.0-0.7 [facility] Comment on above: Performed By: #### C BC #### [facility] [address] [address] [address] Judith Solorio Eosinophils/100 WBC (Bld) 2.0 % Normal 0.9-7.0 [facility] Comment on above: Performed By: #### C BC #### [facility] [address] [place] [address] Dr. Judith Solorio Erythrocyte distribution width (RBC) [Ratio] 15.1 % Critically high 11.0-15.0 [facility] Comment on above: Performed By: #### C BC #### [facility] [address] [place] [address] Dr. Judith Solorio Hematocrit (Bld) [Volume fraction] 40.4 % Normal 36.0-48.0 [facility] Comment on above: Performed By: #### C BC #### [facility] [address] [place] [address] Dr. Judith Solorio Hemoglobin (Bld) [Mass/Vol] 13.0 g/dL Normal 12.0-16.0 [facility] Comment on above: Performed By: #### C BC #### [facility] [address] [place] [address] Dr. Judith Solorio IG # 0.04 10e3/ul Critically high 0.00-0.03 [facility] Comment on above: Performed By: #### C BC #### [facility] [address] [place] [address] Dr. Judith Solorio IG % 0.4 % Normal 0.0-0.5 [facility] Comment on above: Performed By: #### C BC #### [facility] [address] [place] [address] Dr. Judith Solorio LYMPH # 3.8 103/ul Normal 1.2-3.8 [facility] Comment on above: Performed By: #### C BC #### [facility] [address] [place] [address] Dr. Judith Solorio Lymphocytes/100 WBC (Bld) 41.4 % Normal 20.5-60.0 [facility] Comment on above: Performed By: #### C BC #### [facility] [address] [place] [address] Dr. Judith Solorio MANUAL DIFF REQ NO Normal [facility] Comment on above: Performed By: #### C BC #### [facility] [address] [place] [address] Dr. Judith Solroio MCH (RBC) [Entitic mass] 30.7 pg Normal 26.7-34.0 [facility] Comment on above: Performed By: #### C BC #### [facility] [address] [place] [address] Dr. Judith Solorio MCHC (RBC) [Mass/Vol] 32.2 g/dL Normal 29.9-35.2 [facility] Comment on above: Performed By: #### C BC #### [facility] [address] [place] [address] Dr. Judith Solorio MCV (RBC) [Entitic vol] 95.5 fL Normal 81.0-99.0 [facility] Comment on above: Performed By: #### C BC #### [facility] [address] [place] [address] Dr. Judith Solorio MONO # 0.7 103/ul Normal 0.3-0.8 [facility] Comment on above: Performed By: #### C BC #### [facility] [address] [place] [address] Dr. Judith Solorio Monocytes/100 WBC (Bld) 7.8 % Normal 1.7-12.0 [facility] Comment on above: Performed By: #### C BC #### [facility] [address] [place] [address] Dr. Judith Solorio NEUT # 4.4 103/ul Normal 1.4-6.5 [facility] Comment on above: Performed By: #### C BC #### [facility] [address] [place] [address] Dr. Judith Solorio Neutrophils/100 WBC (Bld) 47.9 % Normal 43.0-75.0 [facility] Comment on above: Performed By: #### C BC #### [facility] [address] [place] [address] Dr. Judith Solorio Platelet mean volume (Bld) [Entitic vol] 11.1 fL Normal 9.5-13.5 [facility] Comment on above: Performed By: #### C BC #### [facility] [address] [place] [address] Dr. Judith Solorio PLT 205 103/ul Normal 150-450 [facility] Comment on above: Performed By: #### C BC #### [facility] [address] [place] [address] Dr. Judith Solorio RBC 4.23 106/ul Normal 4.20-5.40 [facility] Comment on above: Performed By: #### C BC #### [facility] [address] [place] [address] Dr. Judith Solorio WBC 9.2 103/ul Normal 4.0-11.0 [facility] Comment on above: Performed By: #### C BC #### [facility] [address] [place] [address] Dr. Judith Solorio CULTURE URINEon 05-26-2022 CULTURE URINE Culture Observations: LIGHT GROWTH OF MIXED GENITAL KIMBERLEY. NO POTENTIAL PATHOGENS SEEN. Normal [facility] Comment on above: Performed By: #### U RCX #### [facility] [address] [place] [address] Dr. Judith Solorio GLYCOHEMOGLOBIN A1Con 2022 ADA RECOMMENDATION SEE BELOW Normal [facility] Comment on above: Result Comment: ADA RECOMMENDED LIMIT 4.0 - 6.0 ADA THERAPEUTIC TARGET < 7.0 ACTION SUGGESTED > 7.0 Performed By: #### A 1C #### [facility] [address] [place] [address] Dr. Judith Solorio Glucose [Mass/Vol] 148 mg/dL Normal [facility] Comment on above: Performed By: #### A 1C #### [facility] [address] [place] [address] Dr. Judith Solorio HbA1c (Bld) [Mass fraction] 6.8 % Critically high 4.5-6.2 [facility] Comment on above: Performed By: #### A 1C #### [facility] [address] [place] [address] Dr. Judith Solorio LIPID PROFILEon 05-26-2022 CHOL-HDL RATIO NORM SEE BELOW Normal [facility] Comment on above: Result Comment: 3.3 - 4.4 LOW RISK 4.4 - 7.1 AVERAGE RISK 7.1 - 11.0 MODERATE RISK >11.0 HIGH RISK Performed By: #### L IPID, TSH, BMP, ALT #### [facility] [address] [place] [address] Dr. Judith Solorio Cholesterol [Mass/Vol] 173 mg/dL <=200 mg/dL T he [facility] Comment on above: Performed By: #### L IPID, TSH, BMP, ALT #### [facility] [address] [place] [address] Dr. Judith Solorio Cholesterol in HDL [Mass/Vol] 51 mg/dL 40-60 mg/dL [facility] Comment on above: Performed By: #### L IPID, TSH, BMP, ALT #### [facility] [address] [place] [address] Dr. Judith Solorio Cholesterol in LDL [Mass/Vol] 85.6 mg/dL Normal [facility] Comment on above: Performed By: #### L IPID, TSH, BMP, ALT #### [facility] [address] [place] [address] Dr. Judith Solorio Cholesterol.total/Chol esterol in HDL [Mass ratio] 3.4 {ratio} [facility] Comment on above: Performed By: #### L IPID, TSH, BMP, ALT #### [facility] [address] [place] [address] Dr. Judith Solorio HDL NORMAL > or = 60 mg/dl - LOW CARDIOVASCULAR RISK <40 mg/dl - HIGH CARDIOVASCULAR RISK Normal [facility] Comment on above: Performed By: #### L IPID, TSH, BMP, ALT #### [facility] [address] [place] [address] Dr. Judith Solorio LDL CALC NORMAL SEE BELOW Normal [facility] Comment on above: Result Comment: <100 mg/dl OPTIMAL 100 - 129 mg/dl NEAR OR ABOVE OPTIMAL 130 - 159 mg/dl BORDERLINE HIGH 160 - 189 mg/dl HIGH >190 mg/dl VERY HIGH Performed By: #### L IPID, TSH, BMP, ALT #### [facility] [address] [place] [address] Dr. Judith Solorio Triglyceride [Mass/Vol] 182 mg/dL Critically high <=150 mg/dL [facility] Comment on above: Performed By: #### L IPID, TSH, BMP, ALT #### [facility] [address] [address] [address] Judith Solorio VLDL CALC 36.4 mg/dL Normal [facility] Comment on above: Performed By: #### L IPID, TSH, BMP, ALT #### [facility] [address] [address] [address] Judith Solorio Lipid Panelon 05-26-2022 Lipid Panel > or = 60 mg/dl - LOW CARDIOVASCULAR RISK <40 mg/dl - HIGH CARDIOVASCULAR RISK [facility] [employer] Other Lipid Panel SEE BELOW [employer] Other Lipid Panel 85.6 mg/dL [employer] Other Lipid Panel 36.4 mg/dL [employer] [employer] Other MICROALBUMIN, RAND URon 04-1 mALB 7.9 mg/L Normal <=30.0 [facility] Comment on above: Performed By: #### M ALBR #### [facility] [address] [place] [address] Dr. Judith Solorio PROF CHEM 8 (BAS METB)on Anion gap [Moles/Vol] 12.8 mmol/L [facility] Comment on above: Performed By: #### L IPID, TSH, BMP, ALT #### [facility] [address] [address] Dr. Judith Solorio Calcium [Mass/Vol] 9.7 mg/dL Normal 8.5-10.1 [facility] Comment on above: Performed By: #### L IPID, TSH, BMP, ALT #### [facility] [address] [address] [address] Judith Solorio Chloride [Moles/Vol] 107 mmol/L 98-107 mmol/L [facility] Comment on above: Performed By: #### L IPID, TSH, BMP, ALT #### [facility] [address] [place] [address] Dr. Judith Solorio CO2 [Moles/Vol] 26.2 mmol/L Normal 21.0-32.0 [facility] Comment on above: Performed By: #### L IPID, TSH, BMP, ALT #### [facility] [address] [address] [address] Judith Solorio Creatinine [Mass/Vol] 1.93 mg/dL Critically high 0.55-1.02 [facility] Comment on above: Performed By: #### L IPID, TSH, BMP, ALT #### [facility] [address] [place] [address] Dr. Judith Solorio EGFR-AF LIBERIAN 30 mL/min/1.73m2 Critically low >=60 [facility] Comment on above: Performed By: #### L IPID, TSH, BMP, ALT #### [facility] [address] [place] [address] Dr. Judith Solorio EGFR-NON AF LIBERIAN 25 mL/min/1.73m2 Critically low >=60 [facility] Comment on above: Performed By: #### L IPID, TSH, BMP, ALT #### [facility] [address] [place] [address] Dr. Judith Solorio Glucose [Mass/Vol] 109 mg/dL Critically high 74-106 [facility] Comment on above: Performed By: #### L IPID, TSH, BMP, ALT #### [facility] [address] [place] [address] Dr. Judith Solorio Potassium [Moles/Vol] 5.0 mmol/L Normal 3.5-5.1 [facility] Comment on above: Performed By: #### L IPID, TSH, BMP, ALT #### [facility] [address] [place] [address] Dr. Judith Solorio Sodium [Moles/Vol] 141 mmol/L Normal 136-145 [facility] Comment on above: Performed By: #### L IPID, TSH, BMP, ALT #### [facility] [address] [place] [address] Dr. Judith Solorio Urea nitrogen [Mass/Vol] 53.0 mg/dL Critically high 7.0-18.0 [facility] Comment on above: Performed By: #### L IPID, TSH, BMP, ALT #### [facility] [address] [place] [address] Dr. Judith Solorio Urea nitrogen/Creatinine [Mass ratio] 27.5 mg/mg [facility] Comment on above: Performed By: #### L IPID, TSH, BMP, ALT #### [facility] [address] [place] [address] Dr. Judith Solorio SGPTon 05-26-2022 ALT [Catalytic activity/Vol] 26 U/L 14-59 U/L [facility] Comment on above: Performed By: #### L IPID, TSH, BMP, ALT #### [facility] [address] [place] [address] Dr. Judith Solorio TSHon 05-26-2022 TSH 3.457 uIU/mL Normal 0.358-3.740 [facility] Comment on above: Performed By: #### L IPID, TSH, BMP, ALT #### [facility] [address] [place] [address] Dr. Judith Solorio UA RANDOM W/MICROSCOPICon BACTERIA SMALL Abnormal NONE SEEN [facility] Comment on above: Performed By: #### U AMIC #### [facility] [address] [place] [address] Dr. Judith Solorio Bilirubin Ql (U) Negative Normal NEGATIVE The [facility] Comment on above: Performed By: #### U AMIC #### [facility] [address] [place] [address] Dr. Judith Solorio CAST NONE SEEN Normal NONE SEEN [facility] Comment on above: Performed By: #### U AMIC #### [facility] [address] [place] [address] Dr. Judith Solorio Clarity (U) CLEAR Normal CLEAR [facility] Comment on above: Performed By: #### U AMIC #### [facility] [address] [place] [address] Dr. Judith Solorio Color (U) LT. YELLOW Normal YELLOW [facility] Comment on above: Performed By: #### U AMIC #### [facility] [address] [address] [address] Judith Solorio Crystals LM Nom (Urine sed) NONE SEEN Normal NONE SEEN [facility] Comment on above: Performed By: #### U AMIC #### [facility] [address] [address] [address] Judith Solorio Epithelial cells LM Ql (Urine sed) FEW Abnormal NONE SEEN /RARE [facility] Comment on above: Performed By: #### U AMIC #### [facility] [address] [address] [address] Judith Solorio Glucose Ql (U) Negative Normal NEGATIVE The [facility] Comment on above: Performed By: #### U AMIC #### [facility] [address] [place] [address] Dr. Judith Solorio Hemoglobin Ql (U) MODERATE Abnormal NEGATIVE The [facility] Comment on above: Performed By: #### U AMIC #### [facility] [address] [address] [address] Judith Solorio Ketones Ql (U) Negative Normal NEGATIVE The [facility] Comment on above: Performed By: #### U AMIC #### [facility] [address] [address] [address] Judith Solorio LEUKOCYTES LARGE Abnormal NEGATIVE [facility] Comment on above: Performed By: #### U AMIC #### [facility] [address] [address] [address] Judith Solorio MUCOUS NONE SEEN Normal NONE SEEN [facility] Comment on above: Performed By: #### U AMIC #### [facility] [address] [address] [address] Judith Solorio Nitrite Ql (U) Negative Normal NEGATIVE The [facility] Comment on above: Performed By: #### U AMIC #### [facility] [address] [address] [address] Judith Solorio pH (U) 5.5 [pH] Normal 5-9 [facility] Comment on above: Performed By: #### U AMIC #### [facility] [address] [address] [address] Judith Solorio RBC 5-10 Abnormal 0-2 [facility] Comment on above: Performed By: #### U AMIC #### [facility] [address] [address] [address] Judith Solorio SPEC GRAVITY 1.025 Normal 1.005-<=1.[address] [facility] Comment on above: Performed By: #### U AMIC #### [facility] [address] [address] [address] Judith Solorio UA PROTEIN TRACE Normal NEGATIVE/ TRACE [facility] Comment on above: Performed By: #### U AMIC #### [facility] [address] [address] [address] Judith Solorio Urobilinogen Qn (U) 0.2 {Lesa'U}/dL Normal 0.2 - 1. 0 [facility] Comment on above: Performed By: #### U AMIC #### [facility] [address] [address] [address] Judith Solorio WBC 20-50 Abnormal NONE SEEN [facility] Comment on above: Performed By: #### U AMIC #### [facility] [address] [address] [address] Judith Solorio Urinalysis - DIPSTICKon 04- Appearance (U) cloudy [employer] Other Bilirubin Ql (U) Negative [employer] Other Color (U) light yellow [employer] Other Glucose Ql (U) Negative [employer] Other Hemoglobin Ql (U) small [employer] Other Ketones Ql (U) Negative [employer] Other Leukocyte esterase Test strip Ql (U) moderate [employer] Other Nitrite Ql (U) Negative [employer] Other pH (U) 5.0 [pH] [employer] Other Protein Ql (U) trace [employer] Other Specific gravity (U) [Rel density] 1.010 [place] [employer] Other Urobilinogen (U) [Mass/Vol] 0.5 mg/dL [place] [employer] Other Urinalysis - DIPSTICK Nor [employer] Other CULTURE URINEon 12-06-2021 CULTURE URINE Isolate [...] F Trimethoprim/Sulfa methoxazole <=20 S F Normal [facility] Comment on above: Performed By: #### U RCX #### [facility] [address] [place] [address] Dr. Judith Solorio GLYCOHEMOGLOBIN A1Con 2021 ADA RECOMMENDATION SEE BELOW Normal [facility] Comment on above: Result Comment: ADA RECOMMENDED LIMIT 4.0 - 6.0 ADA THERAPEUTIC TARGET < 7.0 ACTION SUGGESTED > 7.0 Performed By: #### U AMIC #### [facility] [address] [place] [address] Dr. Judith Solorio Glucose [Mass/Vol] 140 mg/dL Normal [facility] Comment on above: Performed By: #### U AMIC #### [facility] [address] [place] [address] Dr. Judith Solorio HbA1c (Bld) [Mass fraction] 6.5 % Critically high 4.5-6.2 [facility] Comment on above: Performed By: #### U AMIC #### [facility] [address] [address] [address] Judith Solorio UA RANDOM W/MICROSCOPICon BACTERIA MODERATE Abnormal NONE SEEN [facility] Comment on above: Performed By: #### U AMIC #### [facility] [address] [address] [address] Judith Solorio Bilirubin Ql (U) Negative Normal NEGATIVE The [facility] Comment on above: Performed By: #### U AMIC #### [facility] [address] [place] [address] Dr. Judith Solorio CAST NONE SEEN Normal NONE SEEN [facility] Comment on above: Performed By: #### U AMIC #### [facility] [address] [place] [address] Dr. Judith Solorio Clarity (U) CLEAR Normal CLEAR [facility] Comment on above: Performed By: #### U AMIC #### [facility] [address] [place] [address] Dr. Judith Solorio Color (U) LT. YELLOW Normal YELLOW [facility] Comment on above: Performed By: #### U AMIC #### [facility] [address] [place] [address] Dr. Judith Solorio Crystals LM Nom (Urine sed) NONE SEEN Normal NONE SEEN [facility] Comment on above: Performed By: #### U AMIC #### [facility] [address] [place] [address] Dr. Judith Solorio Epithelial cells LM Ql (Urine sed) FEW Abnormal NONE SEEN /RARE [facility] Comment on above: Performed By: #### U AMIC #### [facility] [address] [place] [address] Dr. Judith Solorio Glucose Ql (U) Negative Normal NEGATIVE [facility] Comment on above: Performed By: #### U AMIC #### [facility] [address] [place] [address] Dr. Judith Solorio Hemoglobin Ql (U) SMALL Abnormal NEGATIVE The [facility] Comment on above: Performed By: #### U AMIC #### [facility] [address] [address] [address] Judith Solorio Ketones Ql (U) Negative Normal NEGATIVE [facility] Comment on above: Performed By: #### U AMIC #### [facility] [address] [address] [address] Judith Solorio LEUKOCYTES LARGE Abnormal NEGATIVE [facility] Comment on above: Performed By: #### U AMIC #### [facility] [address] [address] [address] Judith Solorio MUCOUS NONE SEEN Normal NONE SEEN [facility] Comment on above: Performed By: #### U AMIC #### [facility] [address] [place] [address] Dr. Judith Solorio Nitrite Ql (U) Positive Abnormal NEGATIVE [facility] Comment on above: Performed By: #### U AMIC #### [facility] [address] [address] [address] Judith Solorio pH (U) 6.0 [pH] Normal 5-9 [facility] Comment on above: Performed By: #### U AMIC #### [facility] [address] [address] [address] Judith Solorio RBC 5-10 Abnormal 0-2 [facility] Comment on above: Performed By: #### U AMIC #### [facility] [address] [address] [address] Judith Solorio SPEC GRAVITY 1.025 Normal 1.005-<=1.[address] [facility] Comment on above: Performed By: #### U AMIC #### [facility] [address] [address] [address] Judith Solorio UA PROTEIN TRACE Normal NEGATIVE/ TRACE [facility] Comment on above: Performed By: #### U AMIC #### [facility] [address] [place] [address] Dr. Judith Solorio Urobilinogen Qn (U) 0.2 {Lesa'U}/dL Normal 0.2 - 1. 0 [facility] Comment on above: Performed By: #### U AMIC #### [facility] [address] [address] [address] Judith Solorio WBC (U) [#/Vol] /uL Abnormal NONE SEEN The [facility] Comment on above: Performed By: #### U AMIC #### [facility] [address] [place], [place] [address] Dr. Judith Solorio XR bonelength lower extremit yon 06-21-2020 XR bonelength lower extremity [facility] [place] [address] XRay Report Signed Patient: Rosalind Glasgow I MR#: [id number] : 1935 Acct:[id number] Age/Sex: 85 / F ADM Date: 06/21/20 Loc: [facility] Room: Type: [facility] Attending Dr: Ron Velasco PA-C Ordering [...] greater on the RIGHT with medial compartment [id number] contact. XR/XR bonelength lower extremity IMPRESSION: No leg length discrepancy. Impression dictated by: Saw Diaz M.D.06/21/2020 4:29 PM Dictation Location: [place] [address] Transcribed By: [facility] 06/21/201628 Dictated By: Saw Diaz DO 06/21/201625 Signed By: 06/21/201628 [facility] Vital Signs Date Time Vital Sign Value Performing Clinician Facility 10-11-2024 14:18-0400 Body height 162.56 cm Srinivasan Briggs DO Work Phone: [facility] 10-11-2024 14:18-0400 Body mass index (BMI) [Ratio] 30.4 kg/m2 Srinivasan Ball DO Work Phone: [facility] 10-11-2024 14:18-0400 Body weight 80.28 kg Srinivasan Ball DO Work Phone: [facility] 10-11-2024 14:18-0400 Diastolic blood pressure 76 mm[Hg] Srinivasan Ball DO Work Phone: [facility] 10-11-2024 14:18-0400 Heart rate 90 /min Srinivasan Ball DO Work Phone: [facility] 10-11-2024 14:18-0400 Respiratory rate 12 /min Srinivasan Ball DO Work Phone: [facility] 10-11-2024 14:18-0400 Systolic blood pressure 166 mm[Hg] Srinivasan Ball DO Work Phone: [facility] 09-08-2024 13:27-0400 Body height 162.56 cm Srinivasan Ball DO Work Phone: [facility] 09-08-2024 13:27-0400 Body mass index (BMI) [Ratio] 30.6 kg/m2 Srinivasan Ball DO Work Phone: [facility] 09-08-2024 13:27-0400 Body weight 80.9 kg Srinivasan Ball DO Work Phone: [facility] 09-08-2024 13:27-0400 Diastolic blood pressure 77 mm[Hg] Srinivasan Ball DO Work Phone: [facility] 09-08-2024 13:27-0400 Heart rate 75 /min Srinivasan Ball DO Work Phone: [facility] 09-08-2024 13:27-0400 Respiratory rate 12 /min Srinivasan Ball DO Work Phone: [facility] 09-08-2024 13:27-0400 Systolic blood pressure 177 mm[Hg] Srinivasan Ball DO Work Phone: [facility] 06-16-2024 13:41-0400 Body height 162.56 cm Srinivasan Ball DO Work Phone: [facility] 06-16-2024 13:41-0400 Body mass index (BMI) [Ratio] 31.1 kg/m2 Srinivasan Ball DO Work Phone: [facility] 06-16-2024 13:41-0400 Body weight 82.15 kg Srinivasan Ball DO Work Phone: [facility] 06-16-2024 13:41-0400 Diastolic blood pressure 78 mm[Hg] Srinivasan Ball DO Work Phone: [facility] 06-16-2024 13:41-0400 Heart rate 77 /min Srinivasan Ball DO Work Phone: [facility] 06-16-2024 13:41-0400 Respiratory rate 12 /min Srinivasan Ball DO Work Phone: [facility] 06-16-2024 13:41-0400 Systolic blood pressure 189 mm[Hg] Srinivasan Ball DO Work Phone: [facility] 05-02-2024 11:32-0400 Body height 162.56 cm [facility] 05-02-2024 11:32-0400 Body mass index (BMI) [Ratio] 32 kg/m2 [facility] 05-02-2024 11:32-0400 Body weight 84.59 kg [facility] 05-02-2024 11:32-0400 Diastolic blood pressure 89 mm[Hg] [facility] 05-02-2024 11:32-0400 Heart rate 71 /min [facility] 05-02-2024 11:32-0400 Respiratory rate 12 /min [facility] 05-02-2024 11:32-0400 Systolic blood pressure 136 mm[Hg] [facility] 12-22-2023 11:45-0500 Body mass index (BMI) [Ratio] 32.8 kg/m2 [facility] 12-22-2023 11:45-0500 Diastolic blood pressure 89 mm[Hg] [facility] 12-22-2023 11:45-0500 Systolic blood pressure 139 mm[Hg] [facility] 12-22-2023 11:32-0500 Body height 162.56 cm [facility] 12-22-2023 11:32-0500 Body weight 86.69 kg [facility] 12-22-2023 11:32-0500 Heart rate 62 /min [facility] 12-22-2023 11:32-0500 Respiratory rate 12 /min [facility] 12-09-2023 11:28-0400 Body height 162.56 cm [facility] 12-09-2023 11:28-0400 Body mass index (BMI) [Ratio] 32.8 kg/m2 [facility] 12-09-2023 11:28-0400 Body weight 86.86 kg [facility] 12-09-2023 11:28-0400 Diastolic blood pressure 77 mm[Hg] [facility] 12-09-2023 11:28-0400 Heart rate 80 /min [facility] 12-09-2023 11:28-0400 Respiratory rate 12 /min [facility] 12-09-2023 11:28-0400 Systolic blood pressure 187 mm[Hg] [facility] 10-29-2023 09:01-0400 Body height 162.56 cm [facility] 10-29-2023 09:01-0400 Body mass index (BMI) [Ratio] 32.3 kg/m2 [facility] 10-29-2023 09:01-0400 Body weight 85.33 kg [facility] 10-29-2023 09:01-0400 Diastolic blood pressure 69 mm[Hg] [facility] 10-29-2023 09:01-0400 Heart rate 58 /min [facility] 10-29-2023 09:01-0400 Respiratory rate 12 /min [facility] 10-29-2023 09:01-0400 Systolic blood pressure 164 mm[Hg] [facility] 09-14-2023 11:52-0400 Body height 162.56 cm [facility] 09-14-2023 11:52-0400 Body mass index (BMI) [Ratio] 33.3 kg/m2 [facility] 09-14-2023 11:52-0400 Body weight 88.11 kg [facility] 09-14-2023 11:52-0400 Diastolic blood pressure 89 mm[Hg] [facility] 09-14-2023 11:52-0400 Heart rate 73 /min [facility] 09-14-2023 11:52-0400 Respiratory rate 12 /min [facility] 09-14-2023 11:52-0400 Systolic blood pressure 139 mm[Hg] [facility] 06-23-2023 13:41-0400 Body height 162.56 cm [facility] 06-23-2023 13:41-0400 Body mass index (BMI) [Ratio] 33.5 kg/m2 [facility] 06-23-2023 13:41-0400 Body weight 88.5 kg [facility] 06-23-2023 13:41-0400 Diastolic blood pressure 75 mm[Hg] [facility] 06-23-2023 13:41-0400 Heart rate 62 /min [facility] 06-23-2023 13:41-0400 Respiratory rate 16 /min [facility] 06-23-2023 13:41-0400 Systolic blood pressure 180 mm[Hg] [facility] 05-27-2023 10:58-0400 Body height 162.56 cm [facility] 05-27-2023 10:58-0400 Body mass index (BMI) [Ratio] 33.3 kg/m2 [facility] 05-27-2023 10:58-0400 Body weight 87.99 kg [facility] 05-27-2023 10:58-0400 Diastolic blood pressure 74 mm[Hg] [facility] 05-27-2023 10:58-0400 Heart rate 57 /min [facility] 05-27-2023 10:58-0400 Respiratory rate 16 /min [facility] 05-27-2023 10:58-0400 Systolic blood pressure 212 mm[Hg] [facility] 02-24-2023 10:30-0500 Body height 162.56 cm Srinivasan Ball Other [employer] Other 02-24-2023 10:30-0500 Body mass index (BMI) [Ratio] 32.99 kg/m2 Srinivasan Ball Other [employer] Other 02-24-2023 10:30-0500 Body weight 87.18 kg Srinivasan Ball Other [employer] Other 02-24-2023 10:30-0500 Diastolic blood pressure 79 mm[Hg] Srinivasan Ball Other [employer] Other 02-24-2023 10:30-0500 Respiratory rate 12 /min Rsinivasan Ball Other [employer] Other 02-24-2023 10:30-0500 Systolic blood pressure 169 mm[Hg] Srinivasan Ball Other [employer] Other 11-18-2022 11:00-0400 Body height 162.56 cm Srinivasan Ball Other [employer] Other 11-18-2022 11:00-0400 Body mass index (BMI) [Ratio] 32.16 kg/m2 Srinivasan Ball Other [employer] Other 11-18-2022 11:00-0400 Body weight 85 kg Srinivasan Ball Other [employer] Other 11-18-2022 11:00-0400 Diastolic blood pressure 80 mm[Hg] Srinivasan Ball Other [employer] Other 11-18-2022 11:00-0400 Respiratory rate 12 /min Srinivasan Ball Other [employer] Other 11-18-2022 11:00-0400 Systolic blood pressure 134 mm[Hg] Srinivasan Ball Other [employer] Other 10-27-2022 13:45-0400 Body height 162.56 cm Srinivasan Ball Other [employer] Other 10-27-2022 13:45-0400 Body mass index (BMI) [Ratio] 32.95 kg/m2 Srinivasan Ball Other [employer] Other 10-27-2022 13:45-0400 Body weight 87.09 kg Srinivasan Ball Other [employer] Other 10-27-2022 13:45-0400 Diastolic blood pressure 77 mm[Hg] Srinivasan Ball Other [employer] Other 10-27-2022 13:45-0400 Respiratory rate 12 /min Srinivasan Ball Other [employer] Other 10-27-2022 13:45-0400 Systolic blood pressure 152 mm[Hg] Srinivasan Ball Other [employer] Other 08-19-2022 11:30-0400 Body height 162.56 cm Srinivasan Ball Other [employer] Other 08-19-2022 11:30-0400 Body mass index (BMI) [Ratio] 32.82 kg/m2 Srinivasan Ball Other [employer] Other 08-19-2022 11:30-0400 Body weight 86.73 kg Srinivasan Ball Other [employer] Other 08-19-2022 11:30-0400 Diastolic blood pressure 99 mm[Hg] Srinivasan Ball Other [employer] Other 08-19-2022 11:30-0400 Respiratory rate 12 /min Srinivasan Ball Other [employer] Other 08-19-2022 11:30-0400 Systolic blood pressure 175 mm[Hg] Srinivasan Ball Other [employer] Other 05-21-2022 12:30-0400 Body height 162.56 cm Srinivasan Ball Other [employer] Other 05-21-2022 12:30-0400 Body mass index (BMI) [Ratio] 32.06 kg/m2 Srinivasan Ball Other [employer] Other 05-21-2022 12:30-0400 Body weight 84.73 kg Srinivasan Ball Other [employer] Other 05-21-2022 12:30-0400 Diastolic blood pressure 74 mm[Hg] Srinivasan Ball Other [employer] Other 05-21-2022 12:30-0400 Respiratory rate 12 /min Srinivasan Ball Other [employer] Other 05-21-2022 12:30-0400 Systolic blood pressure 149 mm[Hg] Srinivasan Ball Other [employer] Other 03-24-2022 11:30-0500 Body height 162.56 cm Srinivasan Ball Other [employer] Other 03-24-2022 11:30-0500 Body mass index (BMI) [Ratio] 33.12 kg/m2 Srinivasan Ball Other [employer] Other 03-24-2022 11:30-0500 Body weight 87.54 kg Srinivasan Briggs Other [employer] Other 03-24-2022 11:30-0500 Diastolic blood pressure 76 mm[Hg] Srinivasan Ball Other [employer] Other 03-24-2022 11:30-0500 Respiratory rate 12 /min Srinivasan Briggs Other [employer] Other 03-24-2022 11:30-0500 Systolic blood pressure 128 mm[Hg] Srinivasan Briggs Other [employer] Other Encounters Encounter Date Encounter Type Care Provider Facility Start: 10-18-2024 End: 10-18-2024 ambulatory Srinivasan Ball DO Work Phone: [facility] Work Phone: Start: 10-18-2024 End: 10-18-2024 Patient encounter procedure Srinivasan Ball DO -[facility] Work Phone: Start: 10-11-2024 End: 10-11-2024 ambulatory Srinivasan Ball DO Work Phone: [facility] Work Phone: Start: 10-11-2024 End: 10-11-2024 Patient encounter procedure Srinivasan Ball DO -[facility] Work Phone: Start: 09-19-2024 End: 09-19-2024 ambulatory Srinivasan Ball DO Work Phone: [facility] Work Phone: Start: 09-19-2024 End: 09-19-2024 Patient encounter procedure Srinivasan Ball DO -[facility] Work Phone: Start: 09-08-2024 End: 09-08-2024 ambulatory Srinivasan Ball DO Work Phone: [facility] Work Phone: Start: 09-08-2024 End: 09-08-2024 Patient encounter procedure Srinivasan Briggs DO -[facility] Work Phone: Start: 08-23-2024 End: 08-23-2024 ambulatory Srinivasan Briggs DO Work Phone: [facility] Work Phone: Start: 08-23-2024 End: 08-23-2024 Patient encounter procedure Saloni Soto MD -[facility] Work Phone: Start: 06-16-2024 End: 06-16-2024 Patient encounter procedure Srinivasan Briggs DO -[facility] Work Phone: Start: 05-05-2024 End: 05-05-2024 ambulatory [facility] Work Phone: Start: 05-05-2024 End: 05-05-2024 Patient encounter procedure [facility] Work Phone: Start: 05-02-2024 End: 05-02-2024 ambulatory [facility] Work Phone: Start: 05-02-2024 End: 05-02-2024 Patient encounter procedure [facility] Work Phone: Start: 03-10-2024 End: 03-10-2024 [facility] Work Phone: Start: 03-10-2024 End: 03-10-2024 Patient encounter procedure [facility] Work Phone: Start: 12-22-2023 End: 12-22-2023 ambulatory [facility] Work Phone: Start: 12-22-2023 End: 12-22-2023 Patient encounter procedure [facility] Work Phone: Start: 12-16-2023 Non-patient / Non-visit [facility] [employer] Work Phone: Start: 12-09-2023 End: 12-09-2023 ambulatory [facility] Work Phone: Start: 12-09-2023 End: 12-09-2023 Patient encounter procedure [facility] Work Phone: Start: 12-08-2023 Non-patient / Non-visit [facility] Work Phone: Start: 12-08-2023 End: 12-08-2023 [...] Not Available Start: 12-07-2023 Patient encounter procedure [facility] Start: 10-29-2023 End: 10-29-2023 [facility] Work Phone: Start: 10-29-2023 End: 10-29-2023 Patient encounter procedure [facility] Work Phone: Start: 09-27-2023 End: 09-27-2023 ambulatory [facility] Work Phone: Start: 09-27-2023 End: 09-27-2023 Patient encounter procedure [facility] Work Phone: Start: 09-14-2023 End: 09-14-2023 ambulatory [facility] Work Phone: Start: 09-14-2023 End: 09-14-2023 Patient encounter procedure [facility] Work Phone: Start: 06-23-2023 End: 06-23-2023 Patient encounter procedure [facility] Work Phone: Start: 06-09-2023 End: 06-09-2023 ambulatory NELIDAMARISSA AWADANS Not Available Start: 05-27-2023 End: 05-27-2023 ambulatory [facility] Work Phone: Start: 05-27-2023 End: 05-27-2023 Patient encounter procedure [facility] Work Phone: Start: 04-09-2023 Non-patient / Non-visit [facility] Work Phone: Start: 03-19-2023 End: 03-19-2023 ambulatory Srinivasan Briggs Other [employer] Other Start: 03-19-2023 Telephone encounter Srinivasan STANLEY [facility] Start: 03-15-2023 End: 03-15-2023 ambulatory Srinivasan Briggs Other [employer] Other Start: 03-15-2023 Nursing evaluation o f patient and report Srinivasan Briggs [facility] Start: 03-15-2023 Telephone encounter Srinivasan Briggs [facility] Start: 03-11-2023 End: 03-11-2023 ambulatory Srinivasan Briggs Other [employer] Other Start: 03-11-2023 Telephone encounter Srinivasan Briggs [facility] Start: 03-10-2023 End: 03-10-2023 ambulatory NELIDA L CELIA Not Available Start: 02-24-2023 End: 02-24-2023 ambulatory Srinivasan Briggs Other [employer] Other Start: 02-24-2023 Office outpatient vi sit 15 minutes Srinivasan Briggs [facility] Start: 11-26-2022 End: 11-26-2022 ambulatory Srinivasan Briggs Other [employer] Other Start: 11-26-2022 Telephone encounter Srinivasan Ball [facility] Start: 11-18-2022 End: 11-18-2022 ambulatory Srinivasan Ball Other [employer] Other Start: 11-18-2022 Patient encounter procedure Srinivasan Ball [facility] Start: 11-06-2022 End: 11-06-2022 ambulatory Srinivasan Ball Other [employer] Other Start: 11-06-2022 Telephone encounter Srinivasan Ball [facility] Start: 10-27-2022 End: 10-27-2022 ambulatory Srinivasan Ball Other [employer] Other Start: 10-27-2022 Office outpatient vi sit 15 minutes Srinivasan Ball [facility] Start: 08-25-2022 End: 08-25-2022 ambulatory Srinivasan Ball Other [employer] Other Start: 08-25-2022 Telephone encounter Srinivasan Ball [facility] Start: 08-24-2022 End: 08-24-2022 ambulatory Srinivasan Ball Other [employer] Other Start: 08-24-2022 Telephone encounter Srinivasan Ball [facility] Start: 08-19-2022 End: 08-19-2022 ambulatory Srinivasan Ball Other [employer] Other Start: 08-19-2022 Office outpatient vi sit 25 minutes Srinivasan Ball [facility] Start: 08-17-2022 End: 08-17-2022 ambulatory Srinivasan Ball Other [employer] Other Start: 08-17-2022 Telephone encounter Srinivasan Ball [facility] Start: 05-27-2022 End: 05-27-2022 ambulatory Srinivasan Ball Other [employer] Other Start: 05-27-2022 Telephone encounter Srinivasan STANLEY [facility] Start: 05-26-2022 Telephone encounter Srinivasan STANLEY [facility] Start: 05-26-2022 End: 05-27-[address] SRINIVASAN BRIGGS [facility] [employer] Other Start: 05-25-2022 End: 05-25-2022 ambulatory Srinivasan Briggs Other [employer] Other Start: 05-25-2022 Telephone encounter Srinivasan Iftikhar ST[facility]LEY [facility] Start: 05-21-2022 End: 05-21-2022 ambulatory Srinivasan Briggs Other [employer] Other Start: 05-21-2022 Patient encounter procedure Srinivasan Briggs [facility] Start: 05-19-2022 End: 05-19-2022 ambulatory Srinivasan Briggs Other [employer] Other Start: 05-19-2022 Nursing evaluation o f patient and report Srinivasan Briggs [facility] Start: 03-24-2022 End: 03-24-2022 ambulatory Srinivasan Briggs Other [employer] Other Start: 03-24-2022 Office outpatient vi sit 15 minutes Srinivasan Briggs [facility] Start: 12-04-2021 End: 12-05-[address] SRINIVASAN BRIGGS Facility:H1 Procedures Date Procedure Procedure Detail Performing Clinician Start: 12-08-2023 CRYOTHERAPY SKIN LESION Nelida BAUTISTA Work Phone: Plan of Treatment Date Care Activity Detail Author Start: 12-13-2024 End: 12-13-2024 Patient encounter procedure 12/13/2024 1:30 PM EST Office Visit [facility] [address] [place] [address] Nelida Moise PA [address] [facility] [address] [place] [address] [facility] Start: 12-08-2023 End: 12-08-2023 Patient encounter procedure 12/08/2023 1:10 PM EDT Office Visit [facility] [address] [place] [address] Nelida Moise, PA [address] [place] [address] Arrived [facility] Comment on above: Arrived Start: 10-10-2023 Influenza vaccination Influenza Vacc ine (#1) [facility] Start: 11-05-2019 Pneumococcal Vaccine : 65+ Years (2 of 2 - PPSV23 or PCV20) Pneumococcal Vaccine: 65+ Years (2 of 2 - PPSV23 or PCV20) [facility] Comprehensive metabo lic 2000 panel - Serum or Plasma [facility] Microalbumin [Mass/volume] in Urine [facility] Patient Education Low back pain in adults [facility] Work Phone: [facility] Immunizations Immunization Date Immunization Notes Care Provider Fa cility 10-18-2024 influenza, high dose seasonal, preservative-free Srinivasan Briggs DO Work Phone: [facility] 12-09-2023 influenza, high dose seasonal, preservative-free [facility] 11-18-2022 influenza virus vaccine, unspecified formulation [facility] 11-18-2022 influenza, high dose seasonal, preservative-free Srinivasan Briggs Other [facility] [employer] Other 01-16-2022 COVID-19 Pfizer (Pediatric) Srinivasan Briggs Other [facility] 01-15-2022 COVID-19 Pfizer (bivalent) Srinivasan Briggs Other [facility] 12-03-2021 influenza, high dose seasonal, preservative-free Srinivasan Briggs Other [employer] Other 12-03-2021 influenza virus vaccine, split virus (incl. purified surface antigen) Srinivasan Briggs Other [employer] Other 12-03-2021 influenza virus vaccine, unspecified formulation [facility] 11-20-2020 influenza virus vaccine, split virus (incl. purified surface antigen) Srinivasan Briggs Other [facility] [employer] Other 11-20-2020 influenza virus vaccine, unspecified formulation [facility] 11-09-2020 COVID-19 Vaccine Pfi zer - Documentation Purposes Only Srinivasan Briggs Other [facility] 03-22-2020 COVID-19 Vaccine Pfi zer - Documentation Purposes Only Srinivasan Briggs Other [facility] 03-12-2020 COVID-19 Vaccine Pfi zer - Documentation Purposes Only Srinivasan Briggs Other [facility] 03-02-2020 COVID-19 Vaccine Pfi zer - Documentation Purposes Only Srinivasan Iftikhar Other [facility] 11-22-2019 influenza virus vaccine, split virus (incl. purified surface antigen) Srinivasan Briggs Other [facility] [employer] Other 11-22-2019 influenza virus vaccine, unspecified formulation [facility] 11-04-2018 pneumococcal conjuga te vaccine, 13 valent Srinivasan Briggs Other [facility] 12-07-2017 influenza virus vaccine, split virus (incl. purified surface antigen) Srinivasan Briggs Other [facility] [employer] Other 12-07-2017 influenza virus vaccine, unspecified formulation [facility] 12-17-2016 influenza virus vaccine, split virus (incl. purified surface antigen) Srinivasan Iftikhar Other [facility] [employer] Other 12-17-2016 influenza virus vaccine, unspecified formulation [facility] 12-25-2015 influenza virus vaccine, split virus (incl. purified surface antigen) Srinivasan Iftikhar Other [facility] [employer] Other 12-25-2015 influenza virus vaccine, unspecified formulation [facility] 01-10-2015 influenza virus vaccine, split virus (incl. purified surface antigen) Srinivasan Briggs Other [employer] Other 01-10-2015 influenza virus vaccine, unspecified formulation [facility] 11-21-2014 pneumococcal conjuga te vaccine, 13 valent Srinivasan Briggs Other [facility] Payers Date Payer Category Payer Private Health Insurance [facility] [id number] 2022 Unknown [id number] 2000 Medicare MEDICARE [id number] 5 1959 Medicare [id number] 1959 Unknown [id number] 1935 Unknown [id number] 1935 Unknown [id number] 1935 Unknown [id number] 1935 Unknown [id number] 1935 Unknown [id number] Self-pay Self Pay [id number] Social History Date Type Detail Facility Start: 06-09-2023 [facility]igned At [facility] [employer] Other Start: 1935 Sex Assigned At Female F [facility] Start: 11-19-2022 Tobacco smoking stat [facility] Never smoked tobacco [facility] Start: 11-19-2022 Tobacco use and exposure Smokeless tobacco non-user [facility] Start: 06-09-2023 End: 12-08-2023 Alcoholic beverage intake Lifetime non-drinker (finding) [facility] Start: 06-09-2023 History of Social function [facility] Start: 1935 Sex assigned at Not on file [facility] Tobacco smoking stat [facility] Unknown if ever smoked [facility] Work Phone: Start: 12-22-2023 End: 05-05-2024 Sex Female (finding) [facility] Clinical Notes 03-24-2022 to 08-23-2024 Note Date & Type Note Facility 08-23-2024 Evaluation note Diagnosis Onset Date Resolution Dysuria acute August 23 10:34am Essential hypertension acute [place] 2024 1:20pm Left knee pain acute September 1:20pm Primary osteoarthritis of left knee acute September 08, 2024 1:20pm Type 2 diabetes mellitus with hyperglycemia acute September 08 1:20pm [facility] Work Phone: 1(120) 367-545707-16-2025 Evaluation note* Diagnosis Onset Date Resolution Status Admit Date Dysuria acute August 23 10:34am Essential hypertension acute Au 2024 1:20pm Left knee pain acute September 1:20pm Primary osteoarthritis of le ft knee acute September 08, 2024 1:20pm Type 2 diabetes mellitus wit h hyperglycemia acute September 08, 2024 1:20pm Levoscoliosis of lumbosacral spine acute October 11 025 2:07pm Low back pain acute October 112024 2:07pm Lumbar spondylosis acute 2024 2:07pm Osteopenia acute October 11, 2024 2:07pm [facility] Work Phone: 1(816) 474-390805-09-2025 Evaluation note* Diagnosis Onset Date Resolution Status Admit Date Left knee pain acute June 16, 025 1:26pm Primary osteoarthritis of left knee acute June 16, 2024 1:26pm [facility] Work Phone: 1(494) 536-305805-09-2025 Evaluation note* Diagnosis Onset Date Resolution Status Admit Date Left knee pain acute June 16, 2 025 1:26pm Primary osteoarthritis of le ft knee acute June 16, 2024 1: 26pm Dysuria acute August 23 10:34am Essential hypertension acute 2024 1:20pm Left knee pain acute September 1:20pm Primary osteoarthritis of le ft knee acute September 08, 2024 1:20pm Type 2 diabetes mellitus wit h hyperglycemia acute September 08, 2024 1:20pm [facility] Work Phone: 1(639) 121-550903-25-2025 Evaluation note* Diagnosis Onset Date Resolution Status Admit Date Essential hypertension acute [facility] 2024 11:18am Left knee pain acute April 11:18am Primary osteoarthritis of le ft knee acute May 02, 2024 11:18am Type 2 diabetes mellitus wit h hyperglycemia acute May 02, 2024 11:18am [facility] Work Phone: 1(951) 827-450211-13-2024 Evaluation note* Diagnosis Onset Date Resolution Status Admit Date Essential hypertension acute No vember 2023 11:26am Left knee pain acute December 092023 11:26am Primary osteoarthritis of le ft knee acute December 21, 2 024 11:26am Type 2 diabetes mellitus wit h hyperglycemia acute December 21 024 11:26am [facility] Work Phone: 1(790) 466-291910-30-2024 History of Present illness Narrative* MICHELE Perrin [...] limited to risks of scarring, darker or group sales representative pigmentary changes, recurrence, incomplete removal and infection. [...] Next Visit: 1 [id number] Evaluation note* Diagnosis Onset Date Resolution Status [...] wit h hyperglycemia acute December 21 11:26am [facility] Work Phone: 1(793) 408-296502-09-2024 Evaluation note* Encounter Date Diagnosis Assessment Notes Treatment Notes Treatment Clinical Notes Mar, Dysuria (ICD-10 - R30.0) [employer] Other 02-05-2024 Evaluation note* Encounter Date Diagnosis Assessment Notes Treatment Notes Treatment Clinical Notes Mar, Dysuria (ICD-10 - R30.0) [employer] Other 02-01-2024 Evaluation note* Encounter Date Diagnosis Assessment Notes Treatment Notes Treatment Clinical Notes Mar, Controlled type 2 diabetes mellitus with hyperglycemia, without long-term current use of insulin (ICD-10 - E11.65) [employer] Other 01-17-2024 Evaluation note* Encounter Date Diagnosis [...] [BMI ] 32.0-32.9, adult (ICD-10 - Z68.32) [employer] Other [id number] Evaluation note* Encounter Date Diagnosis Assessment Notes [...] High risk medication use (ICD-10 - Z79.899) [employer] Other 09-29-2023 Evaluation note* Encounter Date Diagnosis Assessment Notes Treatment Notes Treatment Clinical Notes Oct, Dysuria (ICD-10 - R30.0) [employer] Other 09-19-2023 Evaluation note* Encounter Date Diagnosis [...] best 2/3 readings w/ goal < 135/85 [employer] Other 07-17-2023 Evaluation note* Encounter Date Diagnosis Assessment Notes Treatment Notes Treatment Clinical Notes Aug, Stage 3a chronic kidney disease (ICD-10 - N18.31) [employer] Other 07-12-2023 Evaluation note* Encounter Date Diagnosis [...] Aug, 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) [employer] Other 07-10-2023 Evaluation note* Encounter Date Diagnosis Assessment Notes Treatment Notes Treatment Clinical Notes Aug, Stage 4 chronic kidney disease (ICD-10 - N18.4) [employer] Other 04-18-2023 Evaluation note* Encounter Date Diagnosis Assessment Notes Treatment Notes Treatment Clinical Notes 18 May, 2022 Dysuria (ICD-10 - R30.0) [employer] Other 04-17-2023 Evaluation note* Encounter Date Diagnosis Assessment Notes Treatment Notes Treatment Clinical Notes 17 May, 2022 Dysuria (ICD-10 - R30.0) [employer] Other 04-13-2023 Evaluation note* Encounter Date Diagnosis [...] High risk medication use (ICD-10 - Z79.899) [employer] Other 04-11-2023 Evaluation note* Encounter Date Diagnosis Assessment Notes Treatment Notes Treatment Clinical Notes 11 Apr, 2023 Dysuria (ICD-10 - R30.0) [employer] Other 02-14-2023 Evaluation note* Encounter Date Diagnosis Assessment Notes Treatment Notes Treatment Clinical Notes Mar, Pain in left knee (ICD-10 - M25.562) Continue ice, heat and Tylenol. Mar, Primary osteoarthritis of left knee (ICD-10 - M17.12) Quad exercises, ice/heat and Tylenol. Mar, Essential hypertension (ICD-10 - I10) This patient [...] Mar, Other chronic pain (ICD-10 - G89.29) [employer] Other Evaluation noteNo [employer] Other Evaluation note* Diagnosis Onset Date Resolution Status Chronic kidney disease acute Chronic venous insufficiency acute Elevated cholesterol acute Essential hypertension acute Hypothyroid acute Type 2 diabetes mellitus with hyperglycemia [facility] Work Phone: Evaluation note* Diagnosis Onset Date Resolution Status Chronic kidney disease acute Concussion acute Essential hypertension acute Hematoma of scalp acute Infected sebaceous cyst of skin acute Chronic kidney disease acute Essential hypertension acute Left knee pain acute Primary osteoarthritis of left knee acute Type 2 diabetes mellitus with hyperglycemia [facility] Work Phone: Evaluation note* Diagnosis Onset Date Resolution Status Chronic kidney disease acute Essential hypertension acute Left knee pain acute Primary osteoarthritis of left knee acute Type 2 diabetes mellitus with hyperglycemia [facility] Work Phone: Evaluation note* Diagnosis Onset Date Resolution Status Chronic kidney disease acute Essential hypertension acute Left knee pain acute Primary osteoarthritis of left knee acute Type 2 diabetes mellitus with hyperglycemia acute Cerumen impaction acute Essential hypertension acute [facility] Work Phone: Evaluation note* Diagnosis Seborrheic keratosis- [...] Type 2 diabetes mellitus with hyperglycemia acute [facility] Work Phone: Evaluation note* Diagnosis Onset Date Resolution Status Admit Date Chronic kidney disease acute [facility] 2024 11:18am Essential hypertension acute [facility] 2024 11:18am Left knee pain acute April 11:18am Primary osteoarthritis of le ft knee acute May 02, 2024 11:18am Type 2 diabetes mellitus wit h hyperglycemia acute May 02, 2024 11:18am [facility] Work Phone: Hiszy[facility] general Narrative - Reported* Type Description Date [...] 0 06/2020 Hospitalization History see surgical history [employer] Other history general Narrative - Reported* Type Description Date [...] 0 06/2020 Hospitalization History see surgical history [employer] Other Reason for referral (narrative)No reason for referral information available[facility] Work Phone: Summary Purpose Family History Relationship [...] impaction October 29, 2023 8:42am Essential hypertension Lydia 20th, 2 024 8:42am Chronic kidney disease December 08 11:18am Chronic venous insufficiency November 11:18am Elevated cholesterol December 09, 2023 11:18am Essential hypertension December 08 11:18am Hypothyroid December 09, 2023 1 1:18am Medicare annual wellness visit, acee nt December 09, 2023 11:18am Type 2 diabetes mellitus with hyperglyce evette December 09, 2023 11:18am Chronic kidney disease December 21 11:26am Essential hypertension December 21 11:26am Left knee pain December 22, 2023 11:26am Primary osteoarthritis of left knee [facility] 2023 11:26am Type 2 diabetes mellitus with hyperglyce [facility] December 22, 2023 11:26am Chief Complaint Admit Date Cortisone Shot December 22, 2023 11:26am UA, burning, frequency March 10 11:04am Reason for Visit Admit Date Essential hypertension December 21 11:26am Left knee pain December 22, 2023 11:26am Primary osteoarthritis of left knee [facility] 2023 11:26am Type 2 diabetes mellitus with hyperglyce [facility] December 22, 2023 11:26am Chief Complaint [...] 11:18am Type 2 diabetes mellitus with hyperglyce [facility] May 02, 2024 11:18am Chief Complaint Admit [...] 11:18am Type 2 diabetes mellitus with hyperglyce [facility] May 02, 2024 11:18am Chief Complaint Admit [...] 1:2 0pm Primary osteoarthritis of left knee Sepu 2024 1:20pm Type 2 diabetes mellitus with [...] 1:2 0pm Primary osteoarthritis of left knee 2024 1:20pm Type 2 diabetes mellitus with hyperglyce evette September 08, 2024 1:20pm Chief Complaint Admit Date UA, burning, frequency August 23, 2024 1 0:34am L Knee Cortisone Shot September 08, 2024 1 :20pm UA:Frequency/Burning September 19, 2024 1 :42pm back pain October 11, 2024 2:07pm Reason for Visit Admit Date Dysuria August 23, 2024 10:3 4am Essential hypertension September 08, 2024 1:20pm Left knee pain September 08, 2024 1:2 0pm Primary osteoarthritis of left knee Sepu 2024 1:20pm Type 2 diabetes mellitus with hyperglyce evette September 08, 2024 1:20pm Levoscoliosis of lumbosacral spine Septe 2024 2:07pm Low back pain October 11, 2024 2:07pm Lumbar spondylosis October 11, 2024 2:07pm Osteopenia October 11, 2024 2:07pm Chief Complaint Admit Date UA, burning, frequency August 23, 2024 1 0:34am L Knee Cortisone Shot September 08, 2024 1 :20pm UA:Frequency/Burning September 19, 2024 1 :42pm back pain October 11, 2024 2:07pm flu shot October 18, 2024 11:34am Additional Source Comments INFORMATION SOURCE (unrecogn ized section and content) DATE CREATED AUTHOR 02/25/2021 [facility] DATE CREATED AUTHOR AUTHOR'S ORGANIZ ATION 05/31/2022 [facility] DATE CREATED AUTHOR AUTHOR'S ORGANIZ ATION 12/10/2023 [facility] Special[facility] EPIC REASON FOR VISIT (unrecogniz ed section and content) Reason Comments Skin Check Care Teams (unrecognized sec tion and content) Team Status: Active Member Role Status Dates Srinivasan Briggs DO Primary Care Provider Active Team Status: Inactive Member Role Status Lester Briggs DO Primary Care Provide r, Attending Provider Active Start: March 10, 2024 End: March 10, 2024 Team Status: Inactive Member Role Status Lester Briggs DO Primary Care Provide r, Attending Provider Active Start: May 02, 2024 End: May 02, 2024 Team Status: Active Member Role Status Lester Briggs DO Primary Care Provide r, Attending Provider Active Start: December 16, 2023 Team Status: Inactive Member Role Status Lester Briggs DO Primary Care Provide r, Attending Provider Active Start: December 22, 2023 End: December 22, 2023 Team Status: Inactive Member Role Status Lester Briggs DO Primary Care Provide r, Attending Provider Active Start: June 23, 2023 End: June 23, 2023 Team Status: Inactive Member Role Status Lester Briggs DO Primary Care Provide r, Attending Provider Active Start: September 14, 2023 End: September 14, 2023 Team Status: Active Member Role Status Lester Briggs DO Primary Care Provider Active Start: April 09, 2023 KEYSHA Ibarra Attending Provider Active Start : April 09, 2023 Team Status: Inactive Member Role Status Lester Briggs DO Primary Care Provide r, Attending Provider Active Start: May 27, 2023 End: May 27, 2023 Team Status: Inactive Member Role Status Lester Briggs DO Primary Care Provide r, Attending Provider Active Start: September 27, 2023 End: September 27, 2023 Team Status: Inactive Member Role Status Lester Briggs DO Primary Care Provide r, Attending Provider Active Start: October 29, 2023 End: October 29, 2023 Team Status: Active Member Role Status Lester Briggs DO Primary Care Provide r, Attending Provider Active Start: December 08, 2023 Team Status: Inactive Member Role Status Lester Briggs DO Primary Care Provide r, Attending Provider Active Start: December 09, 2023 End: December 09, 2023 Team Status: Inactive Member Role Status Lester Briggs DO Primary Care Provide r, Attending Provider Active Start: May 05, 2024 End: May 05, 2024 Team Status: Inactive Member Role Status Lester Briggs DO Primary Care Provider Active Start: June 16, 2024 End: June 16, 2024 Srinivasan Briggs , DO Attending Provider Active Sta rt: June [...] End: September 19, 2024 Srinivasan Briggs , DO Attending Provider Active Sta rt: September 19, 2024 End: September 19, 2024 Team Status: Inactive Member Role Status Lester Briggs DO Primary Care Provider Active Start: October 11, 2024 End: October 11, 2024 Srinivasan Briggs , DO Attending Provider Active Sta rt: October 11, 2024 End: October 11, 2024 Team Status: Inactive Member Role Status Lester Briggs DO Primary Care Provider Active Start: October 18, 2024 End: October 18, 2024 Srinivasan Briggs , DO Attending Provider Active Sta rt: October 18, 2024 End: October 18, 2024 Goals (unrecognized section and content) Goals [...] BE BASED ON THE PRIMARY CLINICAL RECORDS. [facility] [employer] [facility]. provides no warranty or guarantee of the accuracy or completeness of information in this document.
== END 2024-11-24 07:05 | disposition home or self-care (01) ==
LOC: RAD 07:04
PROVIDERS: PCP Internal Medicine; Visit Provider Orthopaedic Surgery
DX: M25.561 Pain in right knee (principal); Z96.651 Presence of right artificial knee joint
CPT/HCPCS: 72170; 73562

== ENCOUNTER 2024-11-30 13:45 | Outpatient (RCR) | payer MEDICARE, OTHER, SELFPAY | END 2025-01-23 14:10 | disposition home or self-care (01) | LOC: PT 13:45 | PROVIDERS: PCP Internal Medicine; Visit Provider Orthopaedic Surgery | DX: S76.311D Strain of muscle, fascia and tendon of the posterior muscle group at thigh level, right thigh, subsequent encounter (principal) | CPT/HCPCS: 97110; 97112; 97140; 97161 ==